=== PATIENT | male | born 1940 | race Caucasian/White ===

== ENCOUNTER → 2016-08-05 | Outpatient (CLI) | payer OTHER ==
[~2016-08-05] MED LIST: ASPCH81 PO; ASPI-461 PO; BND25X PO; CHOL400T PO; GLC500 PO; GLC850 PO; INSDGI SC; MCR5 PO; METO50TA16 PO; MULT-513 PO; NVLG SQ; OMEG10007 PO; SIMV80TA2 PO; SNQ/25 PO; TRAM-10 PO; VITA1CAP4 PO; VITACAP26 PO
[2016-08-05 13:17] LABS: HEMATOCRIT 43.4 % (42-52); MEAN CELL VOLUME 88.8 fL (80-100); MEAN CORPUSCULAR HEMOGLOBIN 30.5 pg (25-34); MEAN CORPUSCULAR HGB CONC 34.3 g/dl (32-36); PLATELET COUNT 241 K/uL (130-400); RED BLOOD COUNT 4.89 M/uL (4.7-6.1); WHITE BLOOD COUNT 13.33 K/uL (4.8-10.8)
[2016-08-05 13:22] LABS: URINE APPEARANCE CLEAR (CLEAR); URINE BILIRUBIN NEG (NEG); URINE COLOR YELLOW; URINE EPITHELIAL CELL AUTO 0-5 /lpf (0-5); URINE NITRITE NEG (NEG); URINE SPECIFIC GRAVITY 1.022 (1.000-1.030); UROBILINOGEN NEG (NEG)
[2016-08-05 13:34] LABS: URINE PROTIEN/CREAT RATIO 0.1 (0-0.2); URINE TOTAL PROTEIN 9.3 mg/dl (0-11.9)
[2016-08-05 13:39] LABS: BLOOD UREA NITROGEN 22 mg/dl (7-18); BUN/CREATININE RATIO 14.7 (10-20); CALCIUM 10.3 mg/dl (8.5-10.1); CARBON DIOXIDE 26 mmol/L (21-32); CHLORIDE 101 mmol/L (98-107); GLUCOSE 275 mg/dl (70-99); PHOSPHORUS 2.2 mg/dl (2.5-4.9); POTASSIUM 3.6 mmol/L (3.5-5.1); SODIUM 138 mmol/L (136-145)
[2016-08-05 13:40] LABS: MANUAL MICROSCOPIC REQUIRED? NO; REVIEW REQ? NO
== END | disposition home or self-care (01) ==
LOC: C.LABMFLN 08:33
PROVIDERS: ATTEND Internal Medicine Nephrology
DX: I12.9 Hypertensive chronic kidney disease with stage 1 through stage 4 chronic kidney disease, or unspecified chronic kidney disease (principal); E55.9 Vitamin D deficiency, unspecified; E83.52 Hypercalcemia; E21.3 Hyperparathyroidism, unspecified; R80.9 Proteinuria, unspecified; N18.3 Chronic kidney disease, stage 3 (moderate)

== ENCOUNTER → 2016-08-07 | Outpatient (CLI) | payer OTHER ==
[2016-08-08 05:45] LABS: ESTIMATED AVERAGE GLUCOSE 200 mg/dl; HA1C FLAG Normal (Normal)
== END | disposition home or self-care (01) ==
LOC: C.LAB1850 16:01
PROVIDERS: ATTEND Internal Medicine
DX: E11.65 Type 2 diabetes mellitus with hyperglycemia (principal)

== ENCOUNTER → 2016-12-03 | Outpatient (CLI) | payer OTHER ==
[2016-12-03 12:56] LABS: HEMATOCRIT 43.6 % (42-52); MEAN CELL VOLUME 88.3 fL (80-100); MEAN CORPUSCULAR HGB CONC 35.1 g/dl (32-36); MEAN PLATELET VOLUME 11.5 fL (7.4-10.4); PLATELET COUNT 207 K/uL (130-400); RED BLOOD COUNT 4.94 M/uL (4.7-6.1)
[2016-12-03 13:18] LABS: URINE APPEARANCE CLEAR (CLEAR); URINE BILIRUBIN NEG (NEG); URINE COLOR DK YELLOW; URINE NITRITE NEG (NEG); URINE SPECIFIC GRAVITY 1.022 (1.000-1.030); UROBILINOGEN NEG (NEG)
[2016-12-03 13:24] LABS: MANUAL MICROSCOPIC REQUIRED? NO; REVIEW REQ? NO
[2016-12-03 13:39] LABS: ESTIMATED AVERAGE GLUCOSE 189 mg/dl; HA1C FLAG Normal (Normal)
[2016-12-03 13:43] LABS: ALT/SGPT 21 U/L (12-78); AST/SGOT 18 U/L (15-37); BLOOD UREA NITROGEN 27 mg/dl (7-18); BUN/CREATININE RATIO 17.7 (10-20); CALCIUM 10.3 mg/dl (8.5-10.1); CARBON DIOXIDE 26 mmol/L (21-32); CHLORIDE 105 mmol/L (98-107); GLUCOSE 116 mg/dl (70-99); PHOSPHORUS 2.7 mg/dl (2.5-4.9); POTASSIUM 3.9 mmol/L (3.5-5.1); SODIUM 139 mmol/L (136-145)
[2016-12-03 13:49] LABS: URINE PROTIEN/CREAT RATIO 0.1 (0-0.2); URINE TOTAL PROTEIN 32.1 mg/dl (0-11.9)
== END | disposition home or self-care (01) ==
LOC: C.LABMFLN 08:31
PROVIDERS: ATTEND Internal Medicine Nephrology
DX: I12.9 Hypertensive chronic kidney disease with stage 1 through stage 4 chronic kidney disease, or unspecified chronic kidney disease (principal); E55.9 Vitamin D deficiency, unspecified; R80.9 Proteinuria, unspecified; N18.3 Chronic kidney disease, stage 3 (moderate); E11.65 Type 2 diabetes mellitus with hyperglycemia; E11.22 Type 2 diabetes mellitus with diabetic chronic kidney disease

== ENCOUNTER → 2016-12-31 | Outpatient (CLI) | payer OTHER ==
[2016-12-31 13:37] LABS: URINE APPEARANCE CLEAR (CLEAR); URINE BILIRUBIN NEG (NEG); URINE COLOR YELLOW; URINE NITRITE NEG (NEG); URINE SPECIFIC GRAVITY 1.019 (1.000-1.030); UROBILINOGEN NEG (NEG); ZZUR CULT IF INDIC CLEAN CATCH NO
[2016-12-31 13:40] LABS: MANUAL MICROSCOPIC REQUIRED? NO; REVIEW REQ? NO
[2016-12-31 14:43] LABS: BLOOD UREA NITROGEN 24 mg/dl (7-18); BUN/CREATININE RATIO 16.3 (10-20); CARBON DIOXIDE 27 mmol/L (21-32); CHLORIDE 105 mmol/L (98-107); GLUCOSE 153 mg/dl (70-99); SODIUM 138 mmol/L (136-145)
[2016-12-31 14:44] LABS: PHOSPHORUS 1.9 mg/dl (2.5-4.9)
== END | disposition home or self-care (01) ==
LOC: C.LABMFLN 08:48
PROVIDERS: ATTEND Internal Medicine Nephrology
DX: I10 Essential (primary) hypertension (principal); E55.9 Vitamin D deficiency, unspecified; R80.9 Proteinuria, unspecified; N18.3 Chronic kidney disease, stage 3 (moderate)

== ENCOUNTER → 2017-01-04 | Outpatient (CLI) | payer OTHER ==
--- NOTE | 2017-01-04 12:13 | DIAGNOSTIC IMAGING REPORT ---
RENAL ULTRASOUND CLINICAL HISTORY: Chronic kidney disease. Hypertension. COMPARISON STUDY: Renal ultrasound October 28, [address] of the abdomen and pelvis March 18, 2008. TECHNIQUE: Sonography of the kidneys and the urinary bladder was performed. FINDINGS: The right kidney measures 11.2 x 4.5 x 5.1 cm and the left measures 15.1 x 6.6 x 4.1 cm. A 5.9 cm anechoic lesion arising from the lower pole of the left kidney is consistent with a cyst. There is no hydronephrosis. No calculi or solid renal masses are identified by sonography. There is moderate right and mild left renal cortical thinning. The prostate is moderately enlarged and indents the base of the bladder. Both ureteral jets were identified. IMPRESSION: 1. No hydronephrosis. 2. Moderate right and mild left renal cortical thinning. 3. 5.9 cm left renal cyst. Electronically signed by: Qasim Cuevas M.D. 01/04/2017 12:12 PM Dictated Date/Time: 01/04/2017 12:10 PM
== END | disposition home or self-care (01) ==
LOC: C.ULTR 11:18
PROVIDERS: ATTEND Internal Medicine Nephrology
DX: E55.9 Vitamin D deficiency, unspecified (principal); I10 Essential (primary) hypertension; N18.3 Chronic kidney disease, stage 3 (moderate); R80.9 Proteinuria, unspecified

== ENCOUNTER 2017-02-15 11:03 | Emergency (ER) | payer OTHER ==
[~2017-02-15] VITALS: Ht 170.2 cm; Wt 78.0 kg
[~2017-02-15 11:03] MED LIST changes: -ASPI-461 PO; -CHOL400T PO; -GLC500 PO; -INSDGI SC; -NVLG SQ; -TRAM-10 PO; -VITA1CAP4 PO; -VITACAP26 PO
[2017-02-15 11:07] VITALS: TEMP 37; Ht 170.2 cm; Wt 78.0 kg
[2017-02-15] MEDS ORDERED: MCR5 PO (11:17)
[2017-02-15] MEDS ORDERED: CHOL400T PO (11:17)
[2017-02-15] MEDS ORDERED: ASPI-461 PO (11:17)
[2017-02-15] MEDS ORDERED: GLC500 PO (11:17)
[2017-02-15] MEDS ORDERED: VITA1CAP4 PO (11:17)
[2017-02-15] MEDS ORDERED: VITACAP26 PO (11:17)
[2017-02-15] MEDS ORDERED: INSDGI SC (11:28)
[2017-02-15] MEDS ORDERED: NVLG SQ (11:28)
--- NOTE | 2017-02-15 12:35 | DIAGNOSTIC IMAGING REPORT ---
RIGHT SHOULDER 3 VIEWS HISTORY: R shoulder/neck pain COMPARISON: None. FINDINGS: There is no fracture or dislocation. The right clavicle is intact. Poststernotomy changes. Mild AC joint arthrosis. Small focus of calcification within the distal supraspinatus tendon. Mild osteoarthritis at the glenohumeral joint. No radiopaque foreign bodies. IMPRESSION: 1. No fracture or dislocation within the right shoulder. 2. Supraspinatus calcific tendinitis. 3. Osteoarthritis within the right shoulder. Electronically signed by: Jose Daniel Wolf M.D. 02/15/2017 12:33 PM Dictated Date/Time: 02/15/2017 12:30 PM
--- NOTE | 2017-02-15 12:43 | DIAGNOSTIC IMAGING REPORT ---
CERVICAL SPINE 5 VIEWS HISTORY: R shoulder/neck pain COMPARISON: None. FINDINGS: The cervical spine is visualized from C1 through the superior endplate of T1. There is no fracture. No subluxation. Straightening of the cervical spine. Severe disc space narrowing at C4-C5 and C5-C6 with small endplate osteophytes. Moderate to space narrowing at C6-C7. Mild facet degenerative changes within the cervical spine. Mild right and moderate left neural foraminal narrowing seen at C4-C7. Prevertebral soft tissues and the atlantodens interval are intact. IMPRESSION: No fracture or subluxation within the cervical spine. Degenerative changes seen from C4 through C7 as described above. Electronically signed by: Jose Daniel Wolf M.D. 02/15/2017 12:42 PM Dictated Date/Time: 02/15/2017 12:36 PM
[2017-02-15] MEDS ORDERED: TRAM-10 PO (13:12)
--- NOTE | 2017-02-15 13:20 | EMERGENCY ROOM VISIT NOTE ---
ED Visit Note First contact with patient: 11:30 I did evaluate and examine this patient myself. I did guide management for the patient. I agree with the APC's assessment as discussed. Please see the APC's dictation for further details. I did independently review the x-rays. The patient has a known history of cervical disc disease. His symptoms seem consistent with cervical disc disease. He has no logic deficits and has good or strength and sensation throughout the right arm. He was advised follow with his doctor for further evaluation and likely referral to physical therapy.
[2017-02-15 13:33] VITALS: BP 129/77; PULSE 98; O2SAT 98
--- NOTE | 2017-02-15 14:19 | EMERGENCY ROOM VISIT NOTE ---
History First contact with patient: 11:30 Chief Complaint: NECK PAIN Stated Complaint: SEVERE PAIN IN NECK AND SHOULDER History of Present Illness The patient is a 76 year old male who presents to the Emergency Room with complaints of intermittent right sided neck and posterior shoulder pain. The patient reports that the pain has been ongoing over the past month. He denies any recent injuries to his neck or shoulder. He does report a history of multiple herniated discs in his neck. Report having a prior MRI of the neck, but does not recall when it was last performed. The patient denies any recent injuries to his shoulder or back. The pain does not radiate into his chest, and he denies any chest pain or shortness of breath. The patient reports that the pain can hit him at any time. His last acute exacerbation was while grocery shopping yesterday. When he went to reach up to a higher shelf, the pain hit him "like a lightening bolt". The patient currently reports that the pain is a 5 out of 10. He has not followed up with his family doctor regarding his current symptoms. Review of Systems 10 system review was performed and was negative except for pertinent positives and negatives as indicated in history of present illness Past Medical/Surgical History Medical Problems: (1) DM (diabetes mellitus) (2) Stroke Surgical Problems: (1) Hx of CABG Family History Unremarkable Social History Smoking Status: Never Smoker Marital Status: Housing Status: lives with family Current/Historical Medications Scheduled Aspirin (Aspirin), 81 MG PO DAILY Cholecalciferol (Vitamin D3), 400 UNITS PO DAILY Doxepin (Sinequan), 25 MG PO HS Fish Oil (Warren-3), 1 CAP PO BID Insulin Aspart (Novolog), SQ UD Insulin Glargine (Lantus), 60 UNITS SC AMPM Metoprolol Tartrate (Lopressor) (Lopressor), 50 MG PO DAILY Multivitamins/Minerals (Mvi With Minerals), 1 TAB PO DAILY Simvastatin (Zocor), 80 MG PO QPM Vitamin E (E 1000), 1,000 UNIT PO DAILY Vitamins C & E (Vitamin C), 1 CAP PO DAILY Scheduled PRN Tramadol (Ultram), 1 TAB PO Q4H PRN for Pain Physical Exam Vital Signs Date Time Temp Pulse Resp B/P (MAP) Pulse Ox O2 Delivery O2 Flow Rate FiO2 02/15/17 13:33 98 18 129/77 98 02/15/17 11:07 37.0 120 16 151/93 97 Room Air Physical Exam CONSTITUTIONAL: Healthy and well nourished. Alert and oriented X 3 with positive affect. The patient does not appear in any acute distress on exam. HEENT: Normocephalic, atraumatic. Pupils equal, round and reactive. NECK: Full active range of motion without discomfort. Negative lateral gaze test. No focal tenderness through the central cervical spine or cervical musculature. RESPIRATORY: Clear to auscultation bilaterally with no wheezing, crackles, rhonchi or stridor. Deep breathing does not worsen any discomfort. CARDIOVASCULAR: Regular rate and rhythm with no murmurs, rubs or gallops. GASTROINTESTINAL: Bowel sounds present in all quadrants. Soft and nontender to palpation. Negative Cueto sign. MUSCULOSKELETAL: Examination shows full range of motion of the right shoulder without significant discomfort. Has mild tenderness to palpation through the right trapezius and right interscapular region. 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 INTEGUMENTARY: No rash or other significant dermatologic conditions noted. NEUROLOGIC: No focal neurologic deficits noted. Right upper extremity median, radial and ulnar motor and sensory are intact. Medical Decision & Procedures ER Provider Diagnostic Interpretation: My interpretation of cervical spine x-ray shows notable lower cervical spine degenerative changes. No obvious fractures or subluxations. Radiologist report is as follows: CERVICAL SPINE 5 VIEWS HISTORY: R shoulder/neck pain COMPARISON: None. FINDINGS: The cervical spine is visualized from C1 through the superior endplate of T1. There is no fracture. No subluxation. Straightening of the cervical spine. Severe disc space narrowing at C4-C5 and C5-C6 with small endplate osteophytes. Moderate to space narrowing at C6-C7. Mild facet degenerative changes within the cervical spine. Mild right and moderate left neural foraminal narrowing seen at C4-C7. Prevertebral soft tissues and the atlantodens interval are intact. IMPRESSION: No fracture or subluxation within the cervical spine. Degenerative changes seen from C4 through C7 as described above. My interpretation of right shoulder x-ray shows a mild supraspinous calcific tendinitis without evidence for other fractures, dislocation or superior migration of the humeral head. Radiologist report is as follows: RIGHT SHOULDER 3 VIEWS HISTORY: R shoulder/neck pain COMPARISON: None. FINDINGS: There is no fracture or dislocation. The right clavicle is intact. Poststernotomy changes. Mild AC joint arthrosis. Small focus of calcification within the distal supraspinatus tendon. Mild osteoarthritis at the glenohumeral joint. No radiopaque foreign bodies. IMPRESSION: 1. No fracture or dislocation within the right shoulder. 2. Supraspinatus calcific tendinitis. 3. Osteoarthritis within the right shoulder. ED Course Patient history and physical exam were performed. Nurse's notes were reviewed. Vital signs were reviewed, showing an elevated blood pressure 151/93. The patient does not appear in any acute distress. X-rays of the cervical spine and right shoulder shows degenerative changes in the neck, and a mild supraspinatus calcific tendinitis. The patient was advised that his symptoms are most consistent with acute cervical radiculitis. He was encouraged to intermittently apply ice to the neck. He may alternate ibuprofen and Tylenol for baseline pain relief. The patient was provided a prescription for tramadol as needed for worse pain. The son reports that the patient has had tramadol before in the past. The patient was instructed to follow-up with his PCP for further reevaluation and management. He was instructed to return to the emergency department for any developing chest pain, shortness of breath or fever. The patient was happy with plan of care, voiced understanding of all discharge instructions, refused any analgesics while in the emergency department , and rated his pain a 3 out of 10 at the conclusion of my exam. The patient was also seen and examined by Dr. Reed, ED attending physician, who agrees with workup and plan of care. The patient was advised of his elevated blood pressure while in the emergency department, and was encouraged to follow-up with his PCP to discuss his elevated blood pressure as well. Medical Decision [place] Drug Monitoring Program Search Results: patient reviewed within database, no issues identified Medication Reconcilliation Current Medication List: was personally reviewed by me Blood Pressure Screening Patient's blood pressure: Elevated blood pressure Blood pressure disposition: Referred to PCP Impression Primary Impression: Radiculitis of right cervical region Additional Impression: Elevated blood pressure reading Departure Information Prescriptions Tramadol (Ultram) 50 Mg Tab 1 TAB PO Q4H Y for Pain, #30 TAB For Initial Treatment Prov: Allan Tristan PA 02/15/17 Referrals Pro,Adonay Harding M.D. (PCP) Patient Instructions My [facility] Problem Qualifiers
== END 2017-02-15 13:36 | disposition home or self-care (01) ==
LOC: C.EDB 11:04 → C.EDD 13:36
DX: M54.12 Radiculopathy, cervical region (principal); R03.0 Elevated blood-pressure reading, without diagnosis of hypertension; E11.9 Type 2 diabetes mellitus without complications; Z86.73 Personal history of transient ischemic attack (TIA), and cerebral infarction without residual deficits; Z95.1 Presence of aortocoronary bypass graft; Z79.82 Long term (current) use of aspirin; Z79.4 Long term (current) use of insulin; Z79.899 Other long term (current) drug therapy

== ENCOUNTER → 2017-07-14 | Outpatient (CLI) | payer OTHER ==
[~2017-07-14] MED LIST changes: -ASPCH81 PO; +ASPI-461 PO; -BND25X PO; +CHOL400T PO; -GLC850 PO; +INSDGI SC; -MCR5 PO; +NVLG SQ; +TRAM-10 PO; +VITA1CAP4 PO; +VITACAP26 PO
[2017-07-14 17:54] LABS: HEMATOCRIT 46.4 % (42-52); HEMOGLOBIN 16.1 g/dL (14.0-18.0); MEAN CELL VOLUME 89.9 fL (80-100); MEAN CORPUSCULAR HEMOGLOBIN 31.2 pg (25-34); MEAN CORPUSCULAR HGB CONC 34.7 g/dl (32-36); MEAN PLATELET VOLUME 12.1 fL (7.4-10.4); PLATELET COUNT 219 K/uL (130-400); RED CELL DISTRIBUTION WIDTH CV 12.9 % (11.5-14.5); RED CELL DISTRIBUTION WIDTH SD 42.3 fL (36.4-46.3); WHITE BLOOD COUNT 10.99 K/uL (4.8-10.8)
[2017-07-14 19:00] LABS: ALBUMIN 4.1 gm/dl (3.4-5.0); ALT/SGPT 23 U/L (12-78); AST/SGOT 13 U/L (15-37); BLOOD UREA NITROGEN 20 mg/dl (7-18); CALCIUM 10.2 mg/dl (8.5-10.1); CARBON DIOXIDE 26 mmol/L (21-32); CREATININE 1.52 mg/dl (0.60-1.40); GLUCOSE 183 mg/dl (70-99); POTASSIUM 3.5 mmol/L (3.5-5.1); SODIUM 136 mmol/L (136-145)
[2017-07-14 19:07] LABS: ALKALINE PHOSPHATASE 82 U/L (45-117); CHOLESTEROL 161 mg/dl (0-200); TOTAL PROTEIN 8.1 gm/dl (6.4-8.2)
== END | disposition home or self-care (01) ==
LOC: C.LABMFLN 13:44
PROVIDERS: ATTEND Internal Medicine Nephrology
DX: E78.5 Hyperlipidemia, unspecified (principal); E11.65 Type 2 diabetes mellitus with hyperglycemia; I12.9 Hypertensive chronic kidney disease with stage 1 through stage 4 chronic kidney disease, or unspecified chronic kidney disease; E55.9 Vitamin D deficiency, unspecified; E11.22 Type 2 diabetes mellitus with diabetic chronic kidney disease; N18.3 Chronic kidney disease, stage 3 (moderate); E21.3 Hyperparathyroidism, unspecified; R80.9 Proteinuria, unspecified

== ENCOUNTER 2017-08-30 16:31 | Inpatient (IN) | payer OTHER ==
[~2017-08-30] VITALS: Ht 172.7 cm; Wt 82.3 kg
[~2017-08-30 16:31] MED LIST changes: -INSDGI SC; +INSDGI SQ; -TRAM-10 PO
[2017-08-30] MEDS ORDERED: SODIUM CHLORIDE 0.9% 1000ML 1,000 ML IV STA (16:48)
[2017-08-30] MEDS ORDERED: IBUPROFEN 600 MG TAB PO STA (16:48)
[2017-08-30] MEDS ORDERED: TPRSR/50 PO (17:23)
[2017-08-30] MEDS ORDERED: ONDANSETRON INJ 2 MG/ML 2 ML VIAL IV STA (17:25)
[2017-08-30] MEDS ORDERED: LOSA1TAB38 PO (17:25)
[2017-08-30] MEDS ORDERED: ATOR-24 PO (17:26)
[2017-08-30] MEDS ORDERED: ONDANSETRON INJ 2 MG/ML 2 ML VIAL ONE (17:26)
[2017-08-30] MEDS ORDERED: ALLO100T PO (17:27)
[2017-08-30] MEDS ORDERED: CLOP1TAB54 PO (17:30)
[2017-08-30 17:42] LABS: BASO % 0.1 %; BASO ABS # 0.03 K/uL (0-0.2); EOS ABS # 0.01 K/uL (0-0.5); HEMATOCRIT 45.2 % (42-52); HEMOGLOBIN 15.9 g/dL (14.0-18.0); IG# 0.11 K/uL (0.00-0.02); LYMPH ABS # 1.22 K/uL (1.2-3.4); MEAN CELL VOLUME 85.9 fL (80-100); MEAN CORPUSCULAR HEMOGLOBIN 30.2 pg (25-34); MEAN CORPUSCULAR HGB CONC 35.2 g/dl (32-36); MEAN PLATELET VOLUME 11.7 fL (7.4-10.4); MONO % 5.8 %; MONO ABS # 1.17 K/uL (0.11-0.59); NEUT % 87.6 %; NEUT ABS # 17.68 K/uL (1.4-6.5); PLATELET COUNT 171 K/uL (130-400); RED CELL DISTRIBUTION WIDTH CV 12.9 % (11.5-14.5); RED CELL DISTRIBUTION WIDTH SD 40.5 fL (36.4-46.3); WHITE BLOOD COUNT 20.22 K/uL (4.8-10.8)
--- NOTE | 2017-08-30 17:51 | DIAGNOSTIC IMAGING REPORT ---
CHEST ONE VIEW PORTABLE CLINICAL HISTORY: 77 years-old Male presenting with EVALUATE ALTERED MENTAL STATUS/WEAKNESS. TECHNIQUE: Portable upright AP view of the chest was obtained. COMPARISON: 09/09/2013. FINDINGS: Median sternotomy wires and mediastinal surgical clips unchanged. Breakage of the superiormost wire unchanged. Atherosclerosis of the aortic arch. Cardiac silhouette top normal in size. Mildly low lung volumes with hypoventilatory changes. Bandlike opacity at the right lung base. No large effusion or pneumothorax. Mild prominence of pulmonary vasculature. Degenerative changes of the thoracic spine. Upper abdomen normal. IMPRESSION: 1. Low lung volumes with hypoventilatory changes including right basilar atelectasis. No convincing evidence of acute cardiopulmonary disease. Electronically signed by: Jossue Damon M.D. 08/30/2017 5:50 PM Dictated Date/Time: 08/30/2017 5:49 PM
[2017-08-30 18:06] LABS: CALCIUM 10.6 mg/dl (8.5-10.1); CREATININE 1.54 mg/dl (0.60-1.40); POTASSIUM 4.5 mmol/L (3.5-5.1)
[2017-08-30 18:15] LABS: CKMB 1.9 ng/ml (0.5-3.6)
--- NOTE | 2017-08-30 18:21 | DIAGNOSTIC IMAGING REPORT ---
LUMBAR SPINE WITHOUT, THORACIC SPINE WITHOUT HISTORY: 77 years-old Male fsall acute back pain status post fall COMPARISON: CT 03/18/2008, CTA of the chest 10/24/2008. TECHNIQUE: Multiple axial CT images of the thoracic and lumbar spine were obtained without IV contrast. Images were reviewed in the coronal and sagittal planes. A dose lowering technique was used consistent with the principals of NIKKY. FINDINGS: THORACIC: There is an acute burst fracture involving the T12 vertebral body with 30% anterior endplate vertebral body height loss. Fracture of the posterior cortex is also noted with 5 mm retropulsion. Bones are mildly demineralized. Findings cause mild central canal narrowing posterior to T12 vertebral body. Neuroforamen at T11-T12 and T12-L1 appear patent. No large epidural or paraspinal hematoma identified. The remaining vertebral bodies are well-maintained without additional acute fracture or subluxation. Multilevel bridging osteophytosis with mild multilevel intervertebral disc space narrowing. Mostly moderate multilevel facet arthrosis. The imaged posterior elements appear intact. No high-grade central canal or foraminal narrowing identified within the thoracic spine. The imaged ribs appear intact. Extensive calcification of the thoracic aorta. Coronary arterial disease with cardiomegaly. Subsegmental bibasilar atelectasis. 6 mm nodule of the right upper lobe, image 107 series 3 is unchanged from comparison study compatible with benign etiology. LUMBAR: No acute fracture or subluxation identified. Moderate facet arthrosis of the mid and lower lumbar spine with mild multilevel endplate spurring. Posterior elements appear intact. Transverse processes appear intact. No evidence of sacral or iliac fracture. Moderate degenerative changes about the bilateral SI joints. Posterior disc bulge at L3-L4 causes mild central canal and mild bilateral foraminal narrowing. Circumferential annular disc bulging seen most prominently at L4-L5 resulting in moderate central canal and mild bilateral foraminal narrowing. Moderate posterior disc bulge at L5-S1 flattens the ventral thecal sac without significant central canal or foraminal narrowing identified. Extensive calcification of the aorta and branch vessels without aneurysm identified. No bulky adenopathy or acute intra-abdominal abnormality identified. Mild nonspecific perinephric stranding. IMPRESSION: 1. Acute burst fracture involves the T12 vertebral body with 30% anterior endplate vertebral body height loss. 5 mm retropulsion causes mild central canal narrowing at this level. No high-grade central canal or foraminal narrowing. 2. No acute fracture or subluxation of the lumbar spine. 3. Multilevel endplate spurring and facet arthrosis as above. The above report was generated using voice recognition software. It may contain grammatical, syntax or spelling errors. Electronically signed by: Seng Royal M.D. 08/30/2017 6:20 PM Dictated Date/Time: 08/30/2017 6:05 PM
--- NOTE | 2017-08-30 18:57 | EMERGENCY ROOM VISIT NOTE ---
History Report prepared by Jeffersonibjahaira: Cristiana Martinez Under the Supervision of: Dr. Dudley Kern D.O. First contact with patient: 16:40 Stated Complaint: FALL, BACK & TAILBONE PAIN History of Present Illness The patient is a 77 year old male who presents to the Emergency Room with complaints of a fall that occurred prior to arrival. He states he woke up feeling unwell this morning, so he laid back down. When he got up a little while later, he lost his balance and fell onto his buttocks and tailbone around approximately 0900 this morning. He complains of low back and tailbone pain currently, rating his pain as a 10/10 in severity. He did not lose consciousness during the fall. He states his son found him on the ground around 1500, so he was laying on the ground alone for several hours. He notes he normally ambulates with the assistance of a walker. The patient denies any abdominal pain. Source of History: patient Onset: earlier today Position: other (global) Quality: other (fall) Timing: resolved Associated Symptoms: + back pain, No LOC Review of Systems See HPI for pertinent positives & negatives. A total of 10 systems reviewed and were otherwise negative. Past Medical & Surgical Medical Problems: (1) DM (diabetes mellitus) (2) Stroke Surgical Problems: (1) Hx of CABG Social History Smoking Status: Never Smoker Alcohol Use: none Drug Use: none Marital Status: Housing Status: lives with family Occupation Status: retired Current/Historical Medications Scheduled Allopurinol (Zyloprim), 100 MG PO DAILY Aspirin (Aspirin), 81 MG PO DAILY Atorvastatin (Lipitor), 40 MG PO DAILY Clopidogrel Bisulfate (Plavix), 75 MG PO DAILY Fish Oil ([place]-3), 2 CAP PO DAILY Insulin Aspart (Novolog), 20 UNITS SQ UD Insulin Glargine (Lantus), 55 UNITS SQ AMPM Losartan Potassium (Cozaar), 100 MG PO DAILY Metoprolol Succinate (Metoprolol Succinate ER), 50 MG PO DAILY Multivitamins/Minerals (Mvi With Minerals), 1 TAB PO DAILY Vitamins C & E (Vitamin C), 1 CAP PO BID Allergies Coded Allergies: No Known Allergies (Unverified , 02/15/17) Physical Exam Vital Signs Date Time Temp Pulse Resp B/P (MAP) Pulse Ox O2 Delivery O2 Flow Rate FiO2 08/30/17 16:54 95 08/30/17 16:47 36.3 97 19 185/105 92 Room Air Physical Exam CONSTITUTIONAL/VITAL SIGNS: Reviewed / noted above. GENERAL: Non-toxic in appearance. Difficulty moving related to weakness and pain. INTEGUMENTARY: Warm, dry, and [place]. HEAD: Normocephalic. EYES: without scleral icterus or trauma. ENT/OROPHARYNX: clear and moist. LYMPHADENOPATHY/NECK: Is supple without lymphadenopathy or meningismus. RESPIRATORY: Lungs clear and equal. CARDIOVASCULAR: Regular rate and rhythm. GI/ABDOMEN: Soft and nontender. No organomegaly or pulsatile mass. No rebound or guarding. Normal bowel sounds. EXTREMITIES: Warm and well perfused. BACK: Mild tenderness to palpation to lower thoracic region, no obvious visible trauma. NEUROLOGICAL: Intact without focal deficits. PSYCHIATRIC: normal affect. MUSCULOSKELETAL: Normally developed with good muscle tone. Medical Decision & Procedures ER Provider Diagnostic Interpretation: Radiology results as stated below per my review and radiologist interpretation: CHEST ONE VIEW PORTABLE CLINICAL HISTORY: 77 years-old Male presenting with EVALUATE ALTERED MENTAL STATUS/WEAKNESS. TECHNIQUE: Portable upright AP view of the chest was obtained. COMPARISON: 09/09/2013. FINDINGS: Median sternotomy wires and mediastinal surgical clips unchanged. Breakage of the superiormost wire unchanged. Atherosclerosis of the aortic arch. Cardiac silhouette top normal in size. Mildly low lung volumes with hypoventilatory changes. Bandlike opacity at the right lung base. No large effusion or pneumothorax. Mild prominence of pulmonary vasculature. Degenerative changes of the thoracic spine. Upper abdomen normal. IMPRESSION: 1. Low lung volumes with hypoventilatory changes including right basilar atelectasis. No convincing evidence of acute cardiopulmonary disease. Electronically signed by: Jossue Damon M.D. 08/30/2017 5:50 PM LUMBAR SPINE WITHOUT, THORACIC SPINE WITHOUT HISTORY: 77 years-old Male fsall acute back pain status post fall COMPARISON: CT 03/18/2008, CTA of the chest 10/24/2008. TECHNIQUE: Multiple axial CT images of the thoracic and lumbar spine were obtained without IV contrast. Images were reviewed in the coronal and sagittal planes. A dose lowering technique was used consistent with the principals of NIKKY. FINDINGS: THORACIC: There is an acute burst fracture involving the T12 vertebral body with 30% anterior endplate vertebral body height loss. Fracture of the posterior cortex is also noted with 5 mm retropulsion. Bones are mildly demineralized. Findings cause mild central canal narrowing posterior to T12 vertebral body. Neuroforamen at T11-T12 and T12-L1 appear patent. No large epidural or paraspinal hematoma identified. The remaining vertebral bodies are well-maintained without additional acute fracture or subluxation. Multilevel bridging osteophytosis with mild multilevel intervertebral disc space narrowing. Mostly moderate multilevel facet arthrosis. The imaged posterior elements appear intact. No high-grade central canal or foraminal narrowing identified within the thoracic spine. The imaged ribs appear intact. Extensive calcification of the thoracic aorta. Coronary arterial disease with cardiomegaly. Subsegmental bibasilar atelectasis. 6 mm nodule of the right upper lobe, image 107 series 3 is unchanged from comparison study compatible with benign etiology. LUMBAR: No acute fracture or subluxation identified. Moderate facet arthrosis of the mid and lower lumbar spine with mild multilevel endplate spurring. Posterior elements appear intact. Transverse processes appear intact. No evidence of sacral or iliac fracture. Moderate degenerative changes about the bilateral SI joints. Posterior disc bulge at L3-L4 causes mild central canal and mild bilateral foraminal narrowing. Circumferential annular disc bulging seen most prominently at L4-L5 resulting in moderate central canal and mild bilateral foraminal narrowing. Moderate posterior disc bulge at L5-S1 flattens the ventral thecal sac without significant central canal or foraminal narrowing identified. Extensive calcification of the aorta and branch vessels without aneurysm identified. No bulky adenopathy or acute intra-abdominal abnormality identified. Mild nonspecific perinephric stranding. IMPRESSION: 1. Acute burst fracture involves the T12 vertebral body with 30% anterior endplate vertebral body height loss. 5 mm retropulsion causes mild central canal narrowing at this level. No high-grade central canal or foraminal narrowing. 2. No acute fracture or subluxation of the lumbar spine. 3. Multilevel endplate spurring and facet arthrosis as above. The above report was generated using voice recognition software. It may contain grammatical, syntax or spelling errors. Electronically signed by: Seng Royal M.D. 08/30/2017 6:20 PM Laboratory Results 08/30/17 17:18 Red Blood Count 5.26, Mean Corpuscular Volume 85.9, Mean Corpuscular Hemoglobin 30.2, Mean Corpuscular Hemoglobin Concent 35.2, Mean Platelet Volume 11.7, Neutrophils (%) (Auto) 87.6, Lymphocytes (%) (Auto) 6.0, Monocytes (%) (Auto) 5.8, Eosinophils (%) (Auto) 0.0, Basophils (%) (Auto) 0.1, Neutrophils # (Auto) 17.68, Lymphocytes # (Auto) 1.22, Monocytes # (Auto) 1.17, Eosinophils # (Auto) 0.01, Basophils # (Auto) 0.03 08/30/17 17:18 Test 08/30/17 17:18 White Blood Count 20.22 K/uL (4.8-10.8) Red Blood Count 5.26 M/uL (4.7-6.1) Hemoglobin 15.9 g/dL (14.0-18.0) Hematocrit 45.2 % (42-52) Mean Corpuscular Volume 85.9 fL (80-100) Mean Corpuscular Hemoglobin 30.2 pg (25-34) Mean Corpuscular Hemoglobin Concent 35.2 g/dl (32-36) Platelet Count 171 K/uL (130-400) Mean Platelet Volume 11.7 fL (7.4-10.4) Neutrophils (%) (Auto) 87.6 % Lymphocytes (%) (Auto) 6.0 % Monocytes (%) (Auto) 5.8 % Eosinophils (%) (Auto) 0.0 % Basophils (%) (Auto) 0.1 % Neutrophils # (Auto) 17.68 K/uL (1.4-6.5) Lymphocytes # (Auto) 1.22 K/uL (1.2-3.4) Monocytes # (Auto) 1.17 K/uL (0.11-0.59) Eosinophils # (Auto) 0.01 K/uL (0-0.5) Basophils # (Auto) 0.03 K/uL (0-0.2) RDW Standard Deviation 40.5 fL (36.4-46.3) RDW Coefficient of Variation 12.9 % (11.5-14.5) Immature Granulocyte % (Auto) 0.5 % Immature Granulocyte # (Auto) 0.11 K/uL (0.00-0.02) Anion Gap 11.0 mmol/L (3-11) Est Creatinine Clear Calc Drug Dose 41.3 ml/min Estimated GFR () 49.4 Estimated GFR (Non- 42.6 BUN/Creatinine Ratio 12.9 (10-20) Calcium Level 10.6 mg/dl (8.5-10.1) Total Creatine Kinase 100 U/L (39-308) Creatine Kinase MB 1.9 ng/ml (0.5-3.6) Creatine Kinase MB Ratio 1.9 (0-3.0) Beta-Hydroxybutyric Acid 3.59 mg/dL (0.2-2.81) Laboratory results as stated above per my review. Medications Administered Medications (Trade) Dose Ordered Sig/Jeannette Route Start Time Stop Time Status Last Admin Dose Admin Sodium Chloride 1,000 ml @ 999 mls/hr Q1H1M STAT IV 08/30/17 16:48 08/30/17 17:48 DC 08/30/17 16:48 999 MLS/HR Ibuprofen (Motrin Tab) 600 mg NOW STAT PO 08/30/17 16:48 08/30/17 16:50 DC 08/30/17 17:28 600 MG Ondansetron HCl (Zofran Inj) 4 mg NOW STAT IV 08/30/17 17:25 08/30/17 17:26 DC 08/30/17 17:28 4 MG ECG Per My Interpretation Indication: weakness Rate (beats per minute): 92 Rhythm: sinus rhythm Findings: PVC, other (No ST elevation) ED Course 1645: Previous medical records were reviewed. The patient was evaluated in room B7. A complete history and physical examination was performed. 1648: Ibuprofen 600 mg PO, NSS 1000 ml @ 999 mls/hr IV. 1725: Zofran 4 mg IV. 1828: I discussed the patients case with Dr. Brice, [facility]. He recommends the patient be evaluated by the hospital medicine team and he will consult on the case. 183: I discussed the patients case with Dr. Kiser, [facility] Hospitalist. The patient will be further evaluated. Medical Decision Differentials include: Close head injury, intracranial bleed, facial trauma, cervical spine trauma, chest and thoracic trauma, abdominal and intra-abdominal trauma, spine neurologic trauma, and extremity trauma. The patient is a 77-year-old male who presents to the ED with a chief complaint of a fall. It was a ground-level fall. He denies loss of consciousness or striking his head. The patient presents complaining of some mid thoracic and low back pain. He reported falling on his buttock. The patient states he was lying on the ground since 9 AM until about 4 PM. He could not get up he was too weak. His physical exam reveals generalized weakness and discomfort with movement. There is some tenderness to palpation of the lower thoracic and upper lumbar region. Flank physical exam was otherwise unremarkable. EKG shows a sinus rhythm at a rate of 92 and a chest x-ray did not show acute process. White blood cell count was 20,000 and glucose is 305. Chemistry panel was otherwise unremarkable. CT scan of the thoracic and lumbar spine reveals a burst fracture of the T12 vertebrae with 30% anterior endplate vertebral body height loss and 5 mm of retropulsion causing mild central canal narrowing. The patient was told the results. I spoke with Dr. Brice from orthopedics about the patient. He thinks the patient will be set up for a TLSO brace. The patient will require admission for pain management and further evaluation. His white blood cell count could be related to pain although urinalysis is pending. I spoke with the hospitalist who will see the patient for further inpatient evaluation and care. Medication Reconcilliation Current Medication List: was personally reviewed by me Blood Pressure Screening Patient's blood pressure: Elevated blood pressure Blood pressure disposition: Referred to PCP (The patients elevated blood pressure will be further managed by the inpatient hospital medicine team) Consults Time Called: 1826 Consulting Physician: Dr. Brice [facility] Returned Call: 1827 I discussed the patients case with Dr. Brice, [facility]. He recommends the patient be evaluated by the hospital medicine team and he will consult on the case. Additional Consults: Time Called: 1829 Consulted Physician: Dr. Kiser, [facility] Hospitalist Returned Call: 1831 Additional Comments: I discussed the patients case with Dr. Kiser, [facility] Hospitalist. The patient will be further evaluated. Impression Primary Impression: Fall Additional Impression: Burst fracture of T12 vertebra Scribe Attestation The scribe's documentation has been prepared under my direction and personally reviewed by me in its entirety. I confirm that the note above accurately reflects all work, treatment, procedures, and medical decision making performed by me. Departure Information Dispostion Being Evaluated By Hospitalist Referrals Pro,Adonay Harding M.D. (PCP) Problem Qualifiers
[2017-08-30] MEDS ORDERED: DEXTROSE 50% 50 ML SYR IV PRN (19:15)
[2017-08-30] MEDS ORDERED: GLUCOSE 10 TABS/TUBE PO PRN (19:15)
[2017-08-30] MEDS ORDERED: INSULIN ASPART 100 UNITS/ML 3 ML PEN SQ SCH (19:15)
[2017-08-30] MEDS ORDERED: OXYCODONE/ACETAMINOPHEN 5-325 TAB PO ONE (19:15)
[2017-08-30] MEDS ORDERED: ONDANSETRON INJ 2 MG/ML 2 ML VIAL IV PRN (19:15)
[2017-08-30] MEDS ORDERED: GLUCOSE 40% GEL 15 GM TUBE PO PRN (19:15)
[2017-08-30] MEDS ORDERED: ACETAMINOPHEN 325 MG TAB PO PRN (19:15)
[2017-08-30] MEDS ORDERED: GLUCAGON FOR INJ 1 MG VIAL SQ PRN (19:15)
--- NOTE | 2017-08-30 19:28 | History and Physical ---
History & Physical Date & Time of Service: Aug 30, 2017 at 19:18 Chief Complaint: Fall, Back & Tailbone Pain Primary Care Physician: Adonay Patel M.D. History of Present Illness Source: patient 77 y/o M c/o fall earlier today. Pt states he had felt tired all day today. He laid down for nap. About an hour later he got up and fell to the floor. He was not dizzy or lightheaded. He states he just lost his balance. He fell about 3 months ago at a restaurant but was fine at that point. He does frequently fall back into his recliner when he initially tries to stand. Not daily, but more often lately. "I have a hard time getting going sometimes." Pt 's only concern at this time is his back pain with even small movements. Pt denies fever, SOB, chest pain, abd pain, n/v/c/d, LE pain or swelling. He has never had pain like this before. It is slightly better than when he arrived but not much. He has a low appetite at baseline but tolerates what he eats. He was at his usual level of health today before his fall other than being a bit more tired than usual. Pt states he did take his lantus this AM, but there wasn't enough in his pen to cover his usual dose and he did not feel like getting a new pen at that time. He did not take any of his short acting insulin. He checks his BS maybe 1x week , usually after he has eaten. BS generally around 130-140. Past Medical/Surgical History Medical Problems: (1) Abdominal pain (2) Abdominal pain (3) Compression fracture (4) Constipation (5) Constipation (6) DM (diabetes mellitus) (7) Elevated blood pressure reading (8) Radiculitis of right cervical region (9) Radiculitis of right cervical region (10) Stroke Surgical Problems: (1) H/O colectomy (2) Hx of CABG Hx of CVA in 2015 and 2007 Hx of CABG in 2007 CKD with baseline cr 1.5 Family History Father with hx of possible CVA Social History Smoking Status: Never Smoker Alcohol Use: none Drug Use: none Marital Status: Housing status: lives with family Occupational Status: retired Immunizations History of Influenza Vaccine: No History of Tetanus Vaccine?: No History of Pneumococcal: No History of Hepatitis B Vaccine: No Allergies Coded Allergies: No Known Allergies (Unverified , 02/15/17) Home Medications Scheduled Allopurinol (Zyloprim), 100 MG PO DAILY Aspirin (Aspirin), 81 MG PO DAILY Atorvastatin (Lipitor), 40 MG PO DAILY Clopidogrel Bisulfate (Plavix), 75 MG PO DAILY Fish Oil ([place]-3), 2 CAP PO DAILY Insulin Aspart (Novolog), 20 UNITS SQ UD Insulin Glargine (Lantus), 55 UNITS SQ AMPM Losartan Potassium (Cozaar), 100 MG PO DAILY Metoprolol Succinate (Metoprolol Succinate ER), 50 MG PO DAILY Multivitamins/Minerals (Mvi With Minerals), 1 TAB PO DAILY Vitamins C & E (Vitamin C), 1 CAP PO BID Review of Systems Pertinent positives and negatives reviewed in HPI--all others negative Physical Exam Vital Signs Date Time Temp Pulse Resp B/P (MAP) Pulse Ox O2 Delivery O2 Flow Rate FiO2 08/30/17 16:54 95 08/30/17 16:47 36.3 97 19 185/105 92 Room Air General Appearance: WD/WN, no apparent distress Head: normocephalic, atraumatic Eyes: normal inspection, sclerae normal Respiratory/Chest: normal breath sounds, no respiratory distress Cardiovascular: regular rate, rhythm, no edema Abdomen/GI: non tender, soft Extremities/Musculoskelatal: no calf tenderness, no pedal edema Neurologic/Psych: alert, normal mood/affect, oriented x 3 Skin: normal color, warm/dry Diagnostics Laboratory Results Results Past 24 Hours Test 08/30/17 17:18 Range/Units White Blood Count 20.22 4.8-10.8 K/uL Red Blood Count 5.26 4.7-6.1 M/uL Hemoglobin 15.9 14.0-18.0 g/dL Hematocrit 45.2 42-52 % Mean Corpuscular Volume 85.9 80-100 fL Mean Corpuscular Hemoglobin 30.2 25-34 pg Mean Corpuscular Hemoglobin Concent 35.2 32-36 g/dl Platelet Count 171 130-400 K/uL Mean Platelet Volume 11.7 7.4-10.4 fL Neutrophils (%) (Auto) 87.6 % Lymphocytes (%) (Auto) 6.0 % Monocytes (%) (Auto) 5.8 % Eosinophils (%) (Auto) 0.0 % Basophils (%) (Auto) 0.1 % Neutrophils # (Auto) 17.68 1.4-6.5 K/uL Lymphocytes # (Auto) 1.22 1.2-3.4 K/uL Monocytes # (Auto) 1.17 0.11-0.59 K/uL Eosinophils # (Auto) 0.01 0-0.5 K/uL Basophils # (Auto) 0.03 0-0.2 K/uL RDW Standard Deviation 40.5 36.4-46.3 fL RDW Coefficient of Variation 12.9 11.5-14.5 % Immature Granulocyte % (Auto) 0.5 % Immature Granulocyte # (Auto) 0.11 0.00-0.02 K/uL Sodium Level 133 136-145 mmol/L Potassium Level 4.5 3.5-5.1 mmol/L Chloride Level 100 98-107 mmol/L Carbon Dioxide Level 22 21-32 mmol/L Anion Gap 11.0 3-11 mmol/L Blood Urea Nitrogen 20 7-18 mg/dl Creatinine 1.54 0.60-1.40 mg/dl Est Creatinine Clear Calc Drug Dose 41.3 ml/min Estimated GFR () 49.4 Estimated GFR (Non- 42.6 BUN/Creatinine Ratio 12.9 10-20 Random Glucose 305 70-99 mg/dl Calcium Level 10.6 8.5-10.1 mg/dl Total Creatine Kinase 100 39-308 U/L Creatine Kinase MB 1.9 0.5-3.6 ng/ml Creatine Kinase MB Ratio 1.9 0-3.0 Beta-Hydroxybutyric Acid 3.59 0.2-2.81 mg/dL Diagnostic Radiology CXR: neg for acute CT L/T spine: 1. Acute burst fracture involves the T12 vertebral body with 30% anterior endplate vertebral body height loss. 5 mm retropulsion causes mild central canal narrowing at this level. No high-grade central canal or foraminal narrowing. 2. No acute fracture or subluxation of the lumbar spine. 3. Multilevel endplate spurring and facet arthrosis as above. Impression Assessment and Plan 77 y/o M who was admitted on 08/30 for T12 burst compression fx 12 burst compression fx: as noted on CT s/p mechanical fall Ortho and orthotics c/s pending Calcitonin spray Percocet PRN, would use sparingly in this age group DM: BS elevated in the setting of missed insulin A1c pending Home dosing + SSI PRN Leukocytosis: UA pending Possibly a stress reaction, monitor Afebrile HTN: labile in the setting of pain, continue home meds TIA/CVA/CAD s/p CABG: continue home meds Continue asp/plavix CKD: baseline cr is 1.5 Other: For cardiac resuscitation with DNI, daughter present and agrees DM diet Asp/plavix at baseline, SCDs for other DVT proph to avoid GIB in this age group with rx proph CM c/s, PT/OT pending Resuscitation Status VTE Prophylaxis Will order VTE Prophylaxis: Yes
[2017-08-30 19:32] VITALS: BMI 27.6
[2017-08-30 19:45] VITALS: BP 161/95; PULSE 90; TEMP 37.1; O2SAT 92
[2017-08-30] MEDS: INSULIN ASPART 100 UNITS/ML 3 ML PEN SC SCH (20:53)
[2017-08-30] MEDS: INSULIN GLARGINE SQ SCH (20:54)
[2017-08-30 22:59] VITALS: BP 137/73; PULSE 87; TEMP 37.6; O2SAT 92
[2017-08-31 04:57] LABS: HEMATOCRIT 39.8 % (42-52); HEMOGLOBIN 13.8 g/dL (14.0-18.0); MEAN CELL VOLUME 86.9 fL (80-100); MEAN CORPUSCULAR HEMOGLOBIN 30.1 pg (25-34); MEAN CORPUSCULAR HGB CONC 34.7 g/dl (32-36); MEAN PLATELET VOLUME 11.3 fL (7.4-10.4); PLATELET COUNT 163 K/uL (130-400); RED CELL DISTRIBUTION WIDTH CV 13.2 % (11.5-14.5); WHITE BLOOD COUNT 11.63 K/uL (4.8-10.8)
[2017-08-31 05:18] LABS: CALCIUM 9.6 mg/dl (8.5-10.1); CREATININE 1.54 mg/dl (0.60-1.40); POTASSIUM 4.5 mmol/L (3.5-5.1)
[2017-08-31 06:36] LABS: HEMOGLOBIN A1C 8.8 % (4.5-5.6)
[2017-08-31 07:08] VITALS: BP 166/90; PULSE 79; TEMP 36.7; O2SAT 92
[2017-08-31] MEDS: LOSARTAN POTASSIUM 50 MG TAB PO SCH (08:46)
[2017-08-31] MEDS: CEROVITE ADV FORMULA TAB PO SCH (08:46)
[2017-08-31] MEDS: ATORVASTATIN 40 MG TAB PO SCH (08:46)
[2017-08-31] MEDS: METOPROLOL SUCC 50MG EXT REL TAB PO SCH (08:47)
[2017-08-31] MEDS: OMEGA-3 (PURIFIED FISH OIL) 1 GM CAP PO SCH (08:47)
[2017-08-31] MEDS: ALLOPURINOL 100 MG TAB PO SCH (08:47)
[2017-08-31] MEDS: INSULIN ASPART 100 UNITS/ML 3 ML PEN SC SCH ×4 (08:51→21:00)
[2017-08-31] MEDS: INSULIN GLARGINE SQ SCH ×2 (08:51→21:13)
[2017-08-31] MEDS: CALCITONIN SALMON NA 200 IU/AC 3.7 ML BTL SCH (08:56)
[2017-08-31] MEDS ORDERED: CLOPIDOGREL BISULFATE 75 MG TAB PO SCH (09:00)
[2017-08-31] MEDS: OXYCODONE/ACETAMINOPHEN 5-325 TAB PO PRN ×2 (09:01→18:16)
[2017-08-31] MEDS: ASPIRIN 81 MG ECTAB PO SCH (09:49)
[2017-08-31] MEDS ORDERED: HydrALAZINE HCL 20 MG/ML VIAL IV. PRN (10:45)
--- NOTE | 2017-08-31 10:52 | Hospitalist Progress Note ---
Hospitalist Progress Note Date of Service Aug 31, 2017. Subjective Pt evaluation today including: conversation w/ patient, physical exam, lab review, review of studies, review of inpatient medication list Voiding: no voiding problems Patient resting in bed. Denies syncope, lightheadedness, dizziness w/ fall. Remembers entire events. Notes he has been falling more frequently lately due to loss of balance. Notes severe back pain with movement. Currently, mild pain- just received Percocet, which is helping w/ the pain. Eating and drinking OK. Patient denies any fever, chills, sweats, lightheadedness, dizziness, vision changes, CP, palpitations, edema, SOB, wheezing, cough, abdominal pain, nausea, vomiting, diarrhea, urinary symptoms, melena, numbness/tingling, weakness, anxiety/depression, active bleeding, or new skin discoloration/changes. Medications Current Inpatient Medications Medications (Trade) Dose Ordered Sig/Jeannette Route Start Time Stop Time Status Last Admin Dose Admin Acetaminophen (Tylenol Tab) 650 mg Q4H PRN PO 08/30/17 19:15 09/29/17 19:14 Magnesium Hydroxide (Milk Of Magnesia Susp) 30 ml Q6H PRN PO 08/30/17 19:15 09/29/17 19:14 Ondansetron HCl (Zofran Inj) 4 mg Q6H PRN IV 08/30/17 19:15 09/29/17 19:14 Insulin Aspart (novoLOG ASPART) SLIDING SCALE If C... ACHS SC 08/30/17 21:00 09/29/17 20:59 08/31/17 08:51 10 UNITS Glucose (Glucose 40% Gel) 15-30 GRAMS 15 GRAMS... UD PRN PO 08/30/17 19:15 09/29/17 19:14 Glucose (Glucose Chew Tab) 4-8 Tablets 4 Tabl... UD PRN PO 08/30/17 19:15 09/29/17 19:14 Dextrose (Dextrose 50% 50ML Syringe) 25-50ML OF 50% DW IV FOR... UD PRN IV 08/30/17 19:15 09/29/17 19:14 Glucagon (Glucagon Inj) 1 mg UD PRN SQ 08/30/17 19:15 09/29/17 19:14 Allopurinol (Zyloprim Tab) 100 mg DAILY PO 08/31/17 09:00 09/30/17 08:59 08/31/17 08:47 100 MG Aspirin (Ecotrin Tab) 81 mg DAILY PO 08/31/17 09:00 09/30/17 08:59 08/31/17 09:49 81 MG Atorvastatin Calcium (Lipitor Tab) 40 mg DAILY PO 08/31/17 09:00 09/30/17 08:59 08/31/17 08:46 40 MG Clopidogrel Bisulfate (plAVix TAB) 75 mg DAILY PO 08/31/17 09:00 09/30/17 08:59 08/31/17 08:47 75 MG Fish Oil ([place]-3 (Purified Fish Oil) Cap) 1 gm DAILY PO 08/31/17 09:00 09/30/17 08:59 08/31/17 08:47 1 GM Insulin Glargine (Lantus Vial) 55 units BID SQ 08/30/17 21:00 09/29/17 20:59 08/31/17 08:51 55 UNITS Losartan Potassium (coZAAR TAB) 100 mg DAILY PO 08/31/17 09:00 09/30/17 08:59 08/31/17 08:46 100 MG Metoprolol Succinate (Toprol Xl Tab) 50 mg DAILY PO 08/31/17 09:00 09/30/17 08:59 08/31/17 08:47 50 MG Multivitamins/ Minerals (Multivitamin W/ Minerals Tab) 1 tab DAILY PO 08/31/17 09:00 09/30/17 08:59 08/31/17 08:46 1 TAB Miscellaneous Information (Order Awaiting Action) 1 ea QS N/A 08/31/17 00:00 09/30/17 00:00 Calcitonin [place] (Fortical Nasal [place]) 1 spray DAILY NA 08/31/17 09:00 09/30/17 08:59 08/31/17 08:56 1 SPRAY Oxycodone/ Acetaminophen (Percocet 5-325mg Tab) 1 tab Q4H PRN PO 08/30/17 19:15 09/13/17 19:14 08/31/17 09:01 1 TAB Objective Vital Signs Date Time Temp Pulse Resp B/P (MAP) Pulse Ox O2 Delivery O2 Flow Rate FiO2 08/31/17 07:40 Room Air 08/31/17 07:08 36.7 79 17 166/90 (115) 92 Room Air 08/31/17 00:15 Room Air 08/30/17 22:59 37.6 87 16 137/73 (94) 92 Room Air 08/30/17 19:45 92 Room Air 08/30/17 19:45 37.1 90 16 161/95 (117) 92 Room Air 08/30/17 19:36 91 20 168/105 92 08/30/17 19:32 Room Air 08/30/17 19:31 89 19 180/105 92 Room Air 08/30/17 16:54 95 08/30/17 16:47 36.3 97 19 185/105 92 Room Air Physical Exam General Appearance: no apparent distress Eyes: normal inspection, PERRL ENT: hearing grossly normal Neck: supple Respiratory/Chest: lungs clear, no respiratory distress, no accessory muscle use Cardiovascular: regular rate, rhythm, + systolic murmur Abdomen: normal bowel sounds, non tender, soft Extremities: no pedal edema, no calf tenderness Neurologic/Psychiatric: alert, normal mood/affect, oriented x 3, + motor weakness (BLE ), + pertinent finding (no sensory deficits ) Skin: normal color, warm/dry, no rash Laboratory Results Last 24 Hours Test 08/30/17 17:18 08/30/17 20:14 08/30/17 20:23 08/31/17 04:35 White Blood Count 20.22 K/uL 11.63 K/uL Red Blood Count 5.26 M/uL 4.58 M/uL Hemoglobin 15.9 g/dL 13.8 g/dL Hematocrit 45.2 % 39.8 % Mean Corpuscular Volume 85.9 fL 86.9 fL Mean Corpuscular Hemoglobin 30.2 pg 30.1 pg Mean Corpuscular Hemoglobin Concent 35.2 g/dl 34.7 g/dl Platelet Count 171 K/uL 163 K/uL Mean Platelet Volume 11.7 fL 11.3 fL Neutrophils (%) (Auto) 87.6 % Lymphocytes (%) (Auto) 6.0 % Monocytes (%) (Auto) 5.8 % Eosinophils (%) (Auto) 0.0 % Basophils (%) (Auto) 0.1 % Neutrophils # (Auto) 17.68 K/uL Lymphocytes # (Auto) 1.22 K/uL Monocytes # (Auto) 1.17 K/uL Eosinophils # (Auto) 0.01 K/uL Basophils # (Auto) 0.03 K/uL RDW Standard Deviation 40.5 fL 42.0 fL RDW Coefficient of Variation 12.9 % 13.2 % Immature Granulocyte % (Auto) 0.5 % Immature Granulocyte # (Auto) 0.11 K/uL Sodium Level 133 mmol/L 137 mmol/L Potassium Level 4.5 mmol/L 4.5 mmol/L Chloride Level 100 mmol/L 106 mmol/L Carbon Dioxide Level 22 mmol/L 27 mmol/L Anion Gap 11.0 mmol/L 4.0 mmol/L Blood Urea Nitrogen 20 mg/dl 22 mg/dl Creatinine 1.54 mg/dl 1.54 mg/dl Est Creatinine Clear Calc Drug Dose 41.3 ml/min 41.3 ml/min Estimated GFR () 49.4 49.4 Estimated GFR (Non- 42.6 42.6 BUN/Creatinine Ratio 12.9 14.0 Random Glucose 305 mg/dl 191 mg/dl Calcium Level 10.6 mg/dl 9.6 mg/dl Total Creatine Kinase 100 U/L Creatine Kinase MB 1.9 ng/ml Creatine Kinase MB Ratio 1.9 Beta-Hydroxybutyric Acid 3.59 mg/dL Bedside Glucose 293 mg/dl Urine Color YELLOW Urine Appearance CLEAR Urine pH 5.0 Urine Specific [place] 1.025 Urine Protein TRACE Urine Glucose (UA) 3+ Urine Ketones TRACE Urine Occult Blood NEG Urine Nitrite NEG Urine Bilirubin NEG Urine Urobilinogen NEG Urine Leukocyte Esterase NEG Urine WBC (Auto) 1-5 /hpf Urine RBC (Auto) 0-4 /hpf Urine Hyaline Casts (Auto) 0 /lpf Urine Epithelial Cells (Auto) 0-5 /lpf Urine Bacteria (Auto) NEG Estimated Average Glucose 206 mg/dl Hemoglobin A1c 8.8 % Test 08/31/17 07:58 Bedside Glucose 177 mg/dl Assessment and Plan 77 y/o M who was admitted on 08/30 for T12 burst compression fx T12 burst compression fracture s/p mechanical fall: - Admitted to med/surg - Percocet PRN and Tylenol PRN for pain management - Leukocytosis, likely reactive- no s/s of infection- continue to follow CBC and monitor - Check vitamin D level - Calcitonin spray - PT/OT - Orthopedics consulted, appreciate recommendations - Orthotics consulted T2DM w/ hyperglycemia- hgbA1c 8.8.%: - Continue Lantus 55 u BID - BSG ACHS and ISS - Diabetic education consultation- at discharge: continue Lantus, NovoLog 20 u w / meals, routine BSG checks, f/u w/ Endocrinology as scheduled HTN- elevated likely due to pain response: - Continue Losartan 100 mg daily and Metoprolol 50 mg daily - IV Hydralazine PRN and pain control TIA, CVA, CAD s/p CABG- STABLE: Continue ASA, Plavix, Lipitor, Metoprolol CKD stage III- 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
[2017-08-31 10:57] VITALS: BP 142/75
[2017-08-31 11:17] VITALS: Ht 172.7 cm; Wt 82.3 kg
--- NOTE | 2017-08-31 13:38 | Orthopedic Consultation ---
Orthopedic Consultation Date of Consultation: Aug 31, 2017. Attending Physician: Mckay Odell D.O. Reason for Consultation: Back pain with T12 compression fracture History of Present Illness Said pleasant 77-year-old male who lives alone. Patient fell yesterday landing directly on his buttocks and had immediate onset of back pain. He subsequently was taken to the emergency room for evaluation. He has been diagnosed with a T12 compression fracture. Today the patient states his pain is quite incapacitating. Sitting up and rolling over creates marked discomfort of the thoracolumbar region. He denies any pain radiating into the lumbar spine or in his legs. Denies any numbness or tingling involving the perineal area or legs. He has no other complaints at this time. Past Medical/Surgical History Medical Problems: (1) Burst fracture of T12 vertebra Status: Acute (2) Fall Status: Acute (3) Radiculitis of right cervical region Status: Acute Social History Smoking Status: Never Smoker Alcohol Use: none Drug Use: none Marital Status: Housing Status: lives with family Occupation Status: retired Allergies Coded Allergies: No Known Allergies (Unverified , 02/15/17) Home Medications Scheduled Allopurinol (Zyloprim), 100 MG PO DAILY Aspirin (Aspirin), 81 MG PO DAILY Atorvastatin (Lipitor), 40 MG PO DAILY Clopidogrel Bisulfate (Plavix), 75 MG PO DAILY Fish Oil ([place]-3), 2 CAP PO DAILY Insulin Aspart (Novolog), 20 UNITS SQ UD Insulin Glargine (Lantus), 55 UNITS SQ AMPM Losartan Potassium (Cozaar), 100 MG PO DAILY Metoprolol Succinate (Metoprolol Succinate ER), 50 MG PO DAILY Multivitamins/Minerals (Mvi With Minerals), 1 TAB PO DAILY Vitamins C & E (Vitamin C), 1 CAP PO BID Current Inpatient Medications Current Inpatient Medications Medications (Trade) Dose Ordered Sig/Jeannette Route Start Time Stop Time Status Last Admin Dose Admin Acetaminophen (Tylenol Tab) 650 mg Q4H PRN PO 08/30/17 19:15 09/29/17 19:14 Magnesium Hydroxide (Milk Of Magnesia Susp) 30 ml Q6H PRN PO 08/30/17 19:15 09/29/17 19:14 Ondansetron HCl (Zofran Inj) 4 mg Q6H PRN IV 08/30/17 19:15 09/29/17 19:14 Insulin Aspart (novoLOG ASPART) SLIDING SCALE If C... ACHS SC 08/30/17 21:00 09/29/17 20:59 08/31/17 13:30 7 UNITS Glucose (Glucose 40% Gel) 15-30 GRAMS 15 GRAMS... UD PRN PO 08/30/17 19:15 09/29/17 19:14 Glucose (Glucose Chew Tab) 4-8 Tablets 4 Tabl... UD PRN PO 08/30/17 19:15 09/29/17 19:14 Dextrose (Dextrose 50% 50ML Syringe) 25-50ML OF 50% DW IV FOR... UD PRN IV 08/30/17 19:15 09/29/17 19:14 Glucagon (Glucagon Inj) 1 mg UD PRN SQ 08/30/17 19:15 09/29/17 19:14 Allopurinol (Zyloprim Tab) 100 mg DAILY PO 08/31/17 09:00 09/30/17 08:59 08/31/17 08:47 100 MG Aspirin (Ecotrin Tab) 81 mg DAILY PO 08/31/17 09:00 09/30/17 08:59 08/31/17 09:49 81 MG Atorvastatin Calcium (Lipitor Tab) 40 mg DAILY PO 08/31/17 09:00 09/30/17 08:59 08/31/17 08:46 40 MG Clopidogrel Bisulfate (plAVix TAB) 75 mg DAILY PO 08/31/17 09:00 09/30/17 08:59 08/31/17 08:47 75 MG Fish Oil ([place]-3 (Purified Fish Oil) Cap) 1 gm DAILY PO 08/31/17 09:00 09/30/17 08:59 08/31/17 08:47 1 GM Insulin Glargine (Lantus Vial) 55 units BID SQ 08/30/17 21:00 09/29/17 20:59 08/31/17 08:51 55 UNITS Losartan Potassium (coZAAR TAB) 100 mg DAILY PO 08/31/17 09:00 09/30/17 08:59 08/31/17 08:46 100 MG Metoprolol Succinate (Toprol Xl Tab) 50 mg DAILY PO 08/31/17 09:00 09/30/17 08:59 08/31/17 08:47 50 MG Multivitamins/ Minerals (Multivitamin W/ Minerals Tab) 1 tab DAILY PO 08/31/17 09:00 09/30/17 08:59 08/31/17 08:46 1 TAB Miscellaneous Information (Order Awaiting Action) 1 ea QS N/A 08/31/17 00:00 09/30/17 00:00 Calcitonin [place] (Fortical Nasal [place]) 1 spray DAILY NA 08/31/17 09:00 09/30/17 08:59 08/31/17 08:56 1 SPRAY Oxycodone/ Acetaminophen (Percocet 5-325mg Tab) 1 tab Q4H PRN PO 08/30/17 19:15 09/13/17 19:14 08/31/17 09:01 1 TAB Hydralazine HCl (HydrALAZINE INJ) 10 mg Q6H PRN IV. 08/31/17 10:45 09/30/17 10:44 Physical Exam Date Time Temp Pulse Resp B/P (MAP) Pulse Ox O2 Delivery O2 Flow Rate FiO2 08/31/17 10:57 142/75 (97) 08/31/17 07:40 Room Air 08/31/17 07:08 36.7 79 17 166/90 (115) 92 Room Air 08/31/17 00:15 Room Air 08/30/17 22:59 37.6 87 16 137/73 (94) 92 Room Air 08/30/17 19:45 92 Room Air 08/30/17 19:45 37.1 90 16 161/95 (117) 92 Room Air 08/30/17 19:36 91 20 168/105 92 08/30/17 19:32 Room Air 08/30/17 19:31 89 19 180/105 92 Room Air 08/30/17 16:54 95 08/30/17 16:47 36.3 97 19 185/105 92 Room Air On physical exam he is alert and oriented. He does have discomfort and ice it him up to inspect his spine. He has excellent strength to detailed testing bilateral lower extremities. Sensory is symmetric and intact. Laboratory Results Last 24 Hours Test 08/30/17 17:18 08/30/17 20:14 08/30/17 20:23 08/31/17 04:35 White Blood Count 20.22 K/uL 11.63 K/uL Red Blood Count 5.26 M/uL 4.58 M/uL Hemoglobin 15.9 g/dL 13.8 g/dL Hematocrit 45.2 % 39.8 % Mean Corpuscular Volume 85.9 fL 86.9 fL Mean Corpuscular Hemoglobin 30.2 pg 30.1 pg Mean Corpuscular Hemoglobin Concent 35.2 g/dl 34.7 g/dl Platelet Count 171 K/uL 163 K/uL Mean Platelet Volume 11.7 fL 11.3 fL Neutrophils (%) (Auto) 87.6 % Lymphocytes (%) (Auto) 6.0 % Monocytes (%) (Auto) 5.8 % Eosinophils (%) (Auto) 0.0 % Basophils (%) (Auto) 0.1 % Neutrophils # (Auto) 17.68 K/uL Lymphocytes # (Auto) 1.22 K/uL Monocytes # (Auto) 1.17 K/uL Eosinophils # (Auto) 0.01 K/uL Basophils # (Auto) 0.03 K/uL RDW Standard Deviation 40.5 fL 42.0 fL RDW Coefficient of Variation 12.9 % 13.2 % Immature Granulocyte % (Auto) 0.5 % Immature Granulocyte # (Auto) 0.11 K/uL Sodium Level 133 mmol/L 137 mmol/L Potassium Level 4.5 mmol/L 4.5 mmol/L Chloride Level 100 mmol/L 106 mmol/L Carbon Dioxide Level 22 mmol/L 27 mmol/L Anion Gap 11.0 mmol/L 4.0 mmol/L Blood Urea Nitrogen 20 mg/dl 22 mg/dl Creatinine 1.54 mg/dl 1.54 mg/dl Est Creatinine Clear Calc Drug Dose 41.3 ml/min 41.3 ml/min Estimated GFR () 49.4 49.4 Estimated GFR (Non- 42.6 42.6 BUN/Creatinine Ratio 12.9 14.0 Random Glucose 305 mg/dl 191 mg/dl Calcium Level 10.6 mg/dl 9.6 mg/dl Total Creatine Kinase 100 U/L Creatine Kinase MB 1.9 ng/ml Creatine Kinase MB Ratio 1.9 Beta-Hydroxybutyric Acid 3.59 mg/dL Bedside Glucose 293 mg/dl Urine Color YELLOW Urine Appearance CLEAR Urine pH 5.0 Urine Specific [place] 1.025 Urine Protein TRACE Urine Glucose (UA) 3+ Urine Ketones TRACE Urine Occult Blood NEG Urine Nitrite NEG Urine Bilirubin NEG Urine Urobilinogen NEG Urine Leukocyte Esterase NEG Urine WBC (Auto) 1-5 /hpf Urine RBC (Auto) 0-4 /hpf Urine Hyaline Casts (Auto) 0 /lpf Urine Epithelial Cells (Auto) 0-5 /lpf Urine Bacteria (Auto) NEG Estimated Average Glucose 206 mg/dl Hemoglobin A1c 8.8 % Test 08/31/17 07:58 08/31/17 12:00 Bedside Glucose 177 mg/dl 181 mg/dl Assessment & Plan Assessment T12 compression fracture. Plan at this time he is markedly uncomfortable his CAT scan demonstrates multilevel spondylosis with a low-grade disc phenomenon. This would create significant stress across the T12 area which does not seem to have calcified annular ligaments. This may create to the incomplete decrease likelihood of further collapse and instability. He would be a candidate for a kyphoplasty of T12. This would help with a component of his pain and allow us to mobilize him earlier. We would still proceed with a TLSO brace. I discussed with the patient the option of kyphoplasty is very interested in this procedure. We will tentatively plan for tomorrow afternoon if he is cleared medically. I will hold his Plavix for now.
[2017-08-31 15:44] VITALS: BP 130/70; PULSE 70; TEMP 37.1; O2SAT 91
--- NOTE | 2017-08-31 16:55 | Anesthesiology Progress Note ---
Pre-OP Anesthesia Assessment Date of Note Aug 31, 2017. Review patient information reviewed, chart reviewed, labs reviewed, acceptable for surgery Notes Elderly male fell at home sustaining T12 vertebral fracture. Scheduled for kyphoplasty. PMH is significant for HTN, DM, CAD/,CABG, old CVA with left hemiparesis, mild renal insufficiency, gout. Pt ambulates with walker so activity level is limited. He denies recent chest pain or dyspnea. He is at moderate risk for anesthesia owing to age and underlying cardiovascular disease. However, I do not believe further testing or intervention is indicated prior to kyphoplasty. Discussed risk vs. benefit with pt who expressed understanding and signed informed consent. He should be kept npo after midnight except for meds.
[2017-08-31 23:00] VITALS: BP 130/69; PULSE 80; TEMP 36.8; O2SAT 90
[2017-08-31] MEDS ORDERED: NURSING DECISION MEDICATION ORDER SCH (23:30)
[2017-09-01] VITALS (9 sets, daily range): BP systolic 126–172; BP diastolic 74–97; PULSE 75–94; TEMP 36.5–37.1; O2SAT 91–96
[2017-09-01] MEDS: INSULIN ASPART 100 UNITS/ML 3 ML PEN SC SCH ×5 (01:16→21:00)
[2017-09-01] MEDS: OXYCODONE/ACETAMINOPHEN 5-325 TAB PO PRN ×2 (05:31→23:27)
[2017-09-01 06:53] LABS: HEMOGLOBIN 14.5 g/dL (14.0-18.0); MEAN CELL VOLUME 88.1 fL (80-100); MEAN CORPUSCULAR HEMOGLOBIN 30.4 pg (25-34); MEAN CORPUSCULAR HGB CONC 34.5 g/dl (32-36); MEAN PLATELET VOLUME 11.3 fL (7.4-10.4); PLATELET COUNT 144 K/uL (130-400); RED CELL DISTRIBUTION WIDTH CV 13.1 % (11.5-14.5); RED CELL DISTRIBUTION WIDTH SD 42.4 fL (36.4-46.3); WHITE BLOOD COUNT 12.69 K/uL (4.8-10.8)
[2017-09-01 07:27] LABS: CREATININE 1.51 mg/dl (0.60-1.40)
[2017-09-01] MEDS ORDERED: INSULIN GLARGINE SQ SCH (09:00)
[2017-09-01] MEDS: CEROVITE ADV FORMULA TAB PO SCH (09:03)
[2017-09-01] MEDS: METOPROLOL SUCC 50MG EXT REL TAB PO SCH (09:04)
[2017-09-01] MEDS: CALCITONIN SALMON NA 200 IU/AC 3.7 ML BTL SCH (09:04)
[2017-09-01] MEDS: INSULIN GLARGINE SQ SCH ×2 (09:09→21:01)
[2017-09-01] MEDS ORDERED: FENTANYL CITRATE INJ 50 MCG/1 ML 2 ML VIAL ONE (09:20)
[2017-09-01] MEDS ORDERED: MIDAZOLAM HCL 1 MG/ML 2ML VIAL ONE (09:20)
--- NOTE | 2017-09-01 09:29 | History & Physical Bridge Note ---
H&P Re-Evaluation Bridge Note: I have examined the patient, reviewed the History & Physical and in the interval since the performance of the History & Physical I have noted the following changes of clinical significance: No changes noted
[2017-09-01] MEDS ORDERED: CONRAY 60% 50 ML VIAL ONE (09:47)
[2017-09-01] MEDS ORDERED: BUPIVACAINE/EPINEPHRINE 0.5% MPF 1:200,000 30 ML VIAL ONE (09:47)
[2017-09-01] MEDS ORDERED: HYDROmorphone INJ 2 MG/ML SYR/VIAL ONE (10:32)
[2017-09-01] MEDS ORDERED: DEXAMETHASONE SOD INJ 4 MG/ML VIAL ONE (10:37)
[2017-09-01] MEDS ORDERED: LIDOCAINE HCL 2% 2 ML VIAL (20MG/ML) ONE (10:37)
[2017-09-01] MEDS ORDERED: PHENYLEPHRINE 100MCG/ML 5ML SYR ONE (10:37)
[2017-09-01] MEDS ORDERED: ROCURONIUM BROMIDE 10 MG/ML 5 ML VIAL IV ONE (10:37)
[2017-09-01] MEDS ORDERED: EpHEDrine SULFATE 50MG/5ML SYR ONE (10:37)
[2017-09-01] MEDS ORDERED: CEFAZOLIN SOD 1 GM VIAL ONE (10:37)
[2017-09-01] MEDS ORDERED: NEOSTIGMINE METHYLSULFATE 1 MG/ML 10ML VIAL ONE (10:37)
[2017-09-01] MEDS ORDERED: ONDANSETRON INJ 2 MG/ML 2 ML VIAL ONE (10:37)
[2017-09-01] MEDS ORDERED: PROPOFOL IV EMULSION 10 MG/ML 20 ML VIAL IV ONE (10:37)
[2017-09-01] MEDS ORDERED: GLYCOPYRROLATE INJ 0.2 MG/ML VIAL ONE (10:37)
--- NOTE | 2017-09-01 10:47 | [facility] Operative Report ---
Operative Report Operative Date Sep 01, 2017. Pre-Operative Diagnosis T12 compression fracture Post-Operative Diagnosis T12 compression fracture Procedure(s) Performed 1. T12 kyphoplasty. #[address] Ben Brice Childcare Aide Surgeon(s) Lora Jameson PA-C Estimated Blood Loss 2 ml Specimens a. T12 Bone Biopsy Anesthesia Type General Description of Procedure Patient was met with preoperatively all questions addressed. After informed consent obtained. Patient was taken back to the operative suite. Patient underwent a general anesthetic and placed in a prone position the [place] table chest pad and hip bolsters. All bony prominences were well-padded eyes inspected to ensure no external pressure placed upon the. This point the thoracolumbar spine was prepped and draped in the normal sterile fashion. With the assistance of fluoroscopy in AP and lateral planes identified the T12 vertebral body. 2 small incisions were placed just lateral to the pedicles. I then inserted to Kyphon working cannulas by way of a transpedicular approach into the T12 vertebral body. 2 core biopsies were obtained. I then inserted 20 mm Kyphon balloons and sequentially inflated with fluids fluoroscopic visualization. These were subsequently removed and approximately 6 cc of Kyphon cement injected with fluoroscopic visualization. It demonstrated excellent interdigitation fill of the vertebral body. Working cannulas were then removed small incisions were closed with subcutaneous Monocryl and sterile dressings placed. Patient weakened taken to PACU stable condition. Please note Lora Garcia was present throughout the entire procedure involved in patient positioning complex portions of the surgery and final skin closure. I attest to the content of the Intraoperative Record and any orders documented therein. Any exceptions are noted below.
[2017-09-01] MEDS ORDERED: ACETAMINOPHEN 500 MG TAB PO PRN (11:00)
[2017-09-01] MEDS ORDERED: ONDANSETRON INJ 2 MG/ML 2 ML VIAL IV PRN ×2 (11:00→11:15)
[2017-09-01] MEDS ORDERED: ACETAMINOPHEN 325 MG TAB PO PRN (11:00)
[2017-09-01] MEDS ORDERED: DO NOT ADMINISTER FLU VACCINE PRN (11:00)
[2017-09-01] MEDS ORDERED: DO NOT ADMINISTER PNEUMOCOCCAL VACCINE PRN (11:00)
[2017-09-01] MEDS ORDERED: MAGNESIUM HYDROXIDE SUSP 30 ML UDC PO PRN (11:00)
[2017-09-01] MEDS ORDERED: FENTANYL CITRATE INJ 50 MCG/1 ML 2 ML VIAL IV PRN (11:15)
[2017-09-01] MEDS ORDERED: EpHEDrine SULFATE INJ 50 MG/ML AMP IV PRN (11:15)
[2017-09-01] MEDS ORDERED: ATROPINE SULFATE 0.1 MG/ML 5ML SYR IV PRN (11:15)
--- NOTE | 2017-09-01 11:19 | DIAGNOSTIC IMAGING REPORT ---
THORACIC SPINE 2 VIEW HISTORY: 77 years-old Male T12 KYPHOPLASTY acute compression deformity with T12 kyphoplasty COMPARISON: Thoracic spine CT 08/30/2017 TECHNIQUE: 2 spot fluoroscopic images of the thoracic spine were obtained utilizing 147.4 seconds fluoroscopy time. FINDINGS: Approximately 30% anterior endplate compression deformity of the T12 vertebral body redemonstrated with postprocedural changes of interval vertebroplasty. Cement material appears to be localized within the T12 vertebral body without extension into adjacent structures. Alignment is satisfactory. Atherosclerosis of the aorta. IMPRESSION: Status post vertebroplasty at T12 with satisfactory alignment. The above report was generated using voice recognition software. It may contain grammatical, syntax or spelling errors. Electronically signed by: Seng Royal M.D. 09/01/2017 11:17 AM Dictated Date/Time: 09/01/2017 11:15 AM
--- NOTE | 2017-09-01 11:48 | Anesthesiology Progress Note ---
Anesthesia Post Op Note Date & Time Sep 01, 2017 at 11:48 Vital Signs Pain Intensity: 0 Vital Signs Past 12 Hours Date Time Temp Pulse Resp B/P (MAP) Pulse Ox O2 Delivery O2 Flow Rate FiO2 09/01/17 11:35 36.2 71 16 145/69 95 Nasal Cannula 4 09/01/17 11:25 75 16 145/75 95 Nasal Cannula 4 09/01/17 11:15 76 16 137/89 98 Oxymask 10 09/01/17 11:05 84 16 142/62 98 Oxymask 10 09/01/17 10:57 36.0 84 16 136/70 97 Oxymask 10 Manual 09/01/17 09:05 79 150/85 (106) 09/01/17 07:45 Room Air 09/01/17 06:52 37.0 75 16 128/74 (92) 91 Room Air 09/01/17 00:30 Room Air Notes Mental Status: alert / awake / arousable, participated in evaluation Pt Amnestic to Procedure: Yes Nausea / Vomiting: improving with treatment Pain: adequately controlled Airway Patency, RR, SpO2: stable & adequate BP & HR: stable & adequate Hydration State: stable & adequate Anesthetic Complications: no major complications apparent
[2017-09-01] MEDS ORDERED: SODIUM CHLORIDE 0.9% 1000ML 1,000 ML IV SCH (12:00)
[2017-09-01] MEDS ORDERED: PROMETHAZINE HCL 25 MG TAB PO PRN (13:15)
--- NOTE | 2017-09-01 13:17 | Hospitalist Progress Note ---
Hospitalist Progress Note Date of Service Sep 01, 2017. Subjective Pt evaluation today including: conversation w/ patient, physical exam, lab review, review of inpatient medication list Voiding: no voiding problems Patient resting in bed. Just returned from OR. +nausea. IV Zofran PRN- no relief. Will add Phenergan PRN. No pain. No flatus/BM postop. Patient denies any fever, chills, sweats, lightheadedness, dizziness, vision changes, CP, palpitations, edema, SOB, wheezing, cough, abdominal pain, vomiting , diarrhea, urinary symptoms, melena, numbness/tingling, weakness, muscle/joint pain, anxiety/depression, active bleeding, or new skin discoloration/changes. Medications Current Inpatient Medications Medications (Trade) Dose Ordered Sig/Jeannette Route Start Time Stop Time Status Last Admin Dose Admin Acetaminophen (Tylenol Tab) 650 mg Q4H PRN PO 08/30/17 19:15 09/29/17 19:14 Magnesium Hydroxide (Milk Of Magnesia Susp) 30 ml Q6H PRN PO 08/30/17 19:15 09/29/17 19:14 Ondansetron HCl (Zofran Inj) 4 mg Q6H PRN IV 08/30/17 19:15 09/29/17 19:14 Glucose (Glucose 40% Gel) 15-30 GRAMS 15 GRAMS... UD PRN PO 08/30/17 19:15 09/29/17 19:14 Glucose (Glucose Chew Tab) 4-8 Tablets 4 Tabl... UD PRN PO 08/30/17 19:15 09/29/17 19:14 Dextrose (Dextrose 50% 50ML Syringe) 25-50ML OF 50% DW IV FOR... UD PRN IV 08/30/17 19:15 09/29/17 19:14 Glucagon (Glucagon Inj) 1 mg UD PRN SQ 08/30/17 19:15 09/29/17 19:14 Allopurinol (Zyloprim Tab) 100 mg DAILY PO 08/31/17 09:00 09/30/17 08:59 Future Hold 08/31/17 08:47 100 MG Aspirin (Ecotrin Tab) 81 mg DAILY PO 08/31/17 09:00 09/30/17 08:59 Future Hold 08/31/17 09:49 81 MG Atorvastatin Calcium (Lipitor Tab) 40 mg DAILY PO 08/31/17 09:00 09/30/17 08:59 Future Hold 08/31/17 08:46 40 MG Fish Oil ([place]-3 (Purified Fish Oil) Cap) 1 gm DAILY PO 08/31/17 09:00 09/30/17 08:59 Future Hold 08/31/17 08:47 1 GM Losartan Potassium (coZAAR TAB) 100 mg DAILY PO 08/31/17 09:00 09/30/17 08:59 Future Hold 08/31/17 08:46 100 MG Metoprolol Succinate (Toprol Xl Tab) 50 mg DAILY PO 08/31/17 09:00 09/30/17 08:59 09/01/17 09:04 50 MG Multivitamins/ Minerals (Multivitamin W/ Minerals Tab) 1 tab DAILY PO 08/31/17 09:00 09/30/17 08:59 09/01/17 09:03 1 TAB Miscellaneous Information (Order Awaiting Action) 1 ea QS N/A 08/31/17 00:00 09/30/17 00:00 Calcitonin [place] (Fortical Nasal [place]) 1 spray DAILY NA 08/31/17 09:00 09/30/17 08:59 09/01/17 09:04 1 SPRAY Oxycodone/ Acetaminophen (Percocet 5-325mg Tab) 1 tab Q4H PRN PO 08/30/17 19:15 09/13/17 19:14 09/01/17 05:31 1 TAB Hydralazine HCl (HydrALAZINE INJ) 10 mg Q6H PRN IV. 08/31/17 10:45 09/30/17 10:44 Insulin Aspart (novoLOG ASPART) SLIDING SCALE If C... Q6 SC 09/01/17 00:00 10/01/17 00:00 Insulin Glargine (Lantus Vial) 20 units BID SQ 09/01/17 09:00 09/29/17 20:59 09/01/17 09:09 20 UNITS Docusate Sodium (coLACE CAP) 100 mg BID PO 09/01/17 21:00 10/01/17 20:59 Pneumococcal Polysaccharide Vaccine 1 ea PRN PRN N/A 09/01/17 11:00 10/01/17 10:59 Influenza Virus Vacc Triv Types A&B 1 ea PRN PRN N/A 09/01/17 11:00 10/01/17 10:59 Sodium Chloride 1,000 ml @ 80 mls/hr [id number] IV 09/01/17 12:00 09/02/17 11:59 Polyethylene (Miralax Powder Packet) 17 gm DAILY PO 09/03/17 09:00 10/03/17 08:59 Bisacodyl (Dulcolax Tab) 5 mg DAILY PRN PO 09/03/17 06:00 10/03/17 05:59 Bisacodyl (Dulcolax Supp) 10 mg DAILY PRN [place] 09/03/17 06:00 10/03/17 05:59 Cefazolin Sodium 1000 mg/Syringe 7.5 ml @ 2.5 mls/min Q8H IV 09/01/17 18:00 09/02/17 10:02 Fentanyl Citrate (Fentanyl Inj) 25 mcg Q5M PRN IV 09/01/17 11:15 09/01/17 16:15 Ondansetron HCl (Zofran Inj) 4 mg ONE PRN IV 09/01/17 11:15 09/01/17 16:15 09/01/17 11:52 4 MG Ephedrine Sulfate (EpHEDrine SULFATE INJ) 5 mg Q5M PRN IV 09/01/17 11:15 09/01/17 16:15 Atropine Sulfate (Atropine Sulfate 0.1mg/ml Inj) 0.5 mg Q1M PRN IV 09/01/17 11:15 09/01/17 16:15 Objective Vital Signs Date Time Temp Pulse Resp B/P (MAP) Pulse Ox O2 Delivery O2 Flow Rate FiO2 09/01/17 06:52 37.0 75 16 128/74 (92) 91 Room Air 09/01/17 00:30 Room Air 08/31/17 23:00 36.8 80 16 130/69 (89) 90 Room Air 08/31/17 15:44 37.1 70 16 130/70 (90) 91 Room Air 08/31/17 15:30 Room Air 08/31/17 10:57 142/75 (97) Physical Exam General Appearance: no apparent distress Eyes: normal inspection, PERRL ENT: hearing grossly normal Neck: supple Respiratory/Chest: lungs clear, no respiratory distress, no accessory muscle use Cardiovascular: regular rate, rhythm, + systolic murmur Abdomen: normal bowel sounds, non tender, soft Extremities: no pedal edema, no calf tenderness Neurologic/Psychiatric: no motor/sensory deficits, alert, normal mood/affect, oriented x 3 Skin: normal color, warm/dry, no rash Laboratory Results Last 24 Hours Test 08/31/17 12:00 08/31/17 16:41 08/31/17 21:09 09/01/17 01:12 Bedside Glucose 181 mg/dl 157 mg/dl 101 mg/dl 100 mg/dl Test 09/01/17 06:09 09/01/17 06:32 Bedside Glucose 119 mg/dl White Blood Count 12.69 K/uL Red Blood Count 4.77 M/uL Hemoglobin 14.5 g/dL Hematocrit 42.0 % Mean Corpuscular Volume 88.1 fL Mean Corpuscular Hemoglobin 30.4 pg Mean Corpuscular Hemoglobin Concent 34.5 g/dl RDW Standard Deviation 42.4 fL RDW Coefficient of Variation 13.1 % Platelet Count 144 K/uL Mean Platelet Volume 11.3 fL Sodium Level 137 mmol/L Potassium Level 4.0 mmol/L Chloride Level 106 mmol/L Carbon Dioxide Level 25 mmol/L Anion Gap 6.0 mmol/L Blood Urea Nitrogen 25 mg/dl Creatinine 1.51 mg/dl Est Creatinine Clear Calc Drug Dose 42.2 ml/min Estimated GFR () 50.5 Estimated GFR (Non- 43.6 BUN/Creatinine Ratio 16.5 Random Glucose 115 mg/dl Calcium Level 10.0 mg/dl 25-Hydroxy Vitamin D Total 47.9 ng/ml Assessment and Plan 77 y/o M who was admitted on 08/30 for T12 burst compression fx T12 burst compression fracture from mechanical fall s/p kyphoplasty by Dr. Brice on 09/01: - Admitted to med/surg - Leukocytosis, likely reactive- no s/s of infection- continue to follow CBC and monitor- STABLE - Check vitamin D level- WNL - Calcitonin spray - Orthopedics consulted, appreciate recommendations- surgical management, pain management, PT/OT, and DVT prophylaxis as per orthopedics - Orthotics consulted- TLSO brace provided - Follow postop CBC and PRP - IV Zofran and Phenergan PRN for nausea postop T2DM w/ hyperglycemia- hgbA1c 8.8.%: - Continue Lantus 55 u BID- Lantus 20 u BID while NPO for orthopedics procedure - resume normal dosage once tolerating diet - BSG ACHS and ISS - Diabetic education consultation- at discharge: continue Lantus, NovoLog 20 u w / meals, routine BSG checks, f/u w/ Endocrinology as scheduled HTN- elevated likely due to pain response- STABLE: - Continue Metoprolol 50 mg daily - Losartan held pending postop PRP - IV Hydralazine PRN and pain control TIA, CVA, CAD s/p CABG- STABLE: - Continue ASA, Lipitor, Metoprolol - Plavix held as per orthopedics CKD stage III- baseline drug clerk 1.5- STABLE Gout: Continue Allopurinol DVT prophylaxis: As per surgical team Code status: FULL, NO MECH VENT Dispo: From home- will likely need placement- PT/OT and CM consulted
[2017-09-01] MEDS ORDERED: CEFAZOLIN IV 1,000 MG in DEXTROSE 5% 50ML 50 ML IV SCH (14:00)
[2017-09-01] MEDS ORDERED: NURSING VERBAL MED ORDER ONE ×2 (14:30→18:45)
[2017-09-01] MEDS ORDERED: COUGH DROP (SUGAR FREE) LOZ 24 LOZ/1 BOX LOZ PRN (15:30)
[2017-09-01] MEDS ORDERED: NURSING DECISION MEDICATION ORDER SCH (15:30)
[2017-09-01] MEDS: CEFAZOLIN IV 1,000 MG in SYRINGE 0 ML IV SCH (18:36)
[2017-09-01] MEDS: DOCUSATE SODIUM 100 MG CAP PO SCH (20:58)
[2017-09-02] MEDS: CEFAZOLIN IV 1,000 MG in SYRINGE 0 ML IV SCH ×2 (01:43→10:14)
[2017-09-02 03:17] VITALS: BP 130/74; PULSE 75; TEMP 36.9; O2SAT 94
[2017-09-02 07:44] LABS: CALCIUM 9.9 mg/dl (8.5-10.1); CREATININE 1.49 mg/dl (0.60-1.40); POTASSIUM 3.8 mmol/L (3.5-5.1)
[2017-09-02 07:45] VITALS: BP 146/80; PULSE 82; TEMP 36.8; O2SAT 90
[2017-09-02 07:49] LABS: HEMATOCRIT 39.1 % (42-52); HEMOGLOBIN 13.3 g/dL (14.0-18.0); MEAN CELL VOLUME 88.7 fL (80-100); MEAN CORPUSCULAR HEMOGLOBIN 30.2 pg (25-34); MEAN PLATELET VOLUME 11.6 fL (7.4-10.4); PLATELET COUNT 155 K/uL (130-400); RED CELL DISTRIBUTION WIDTH CV 13.1 % (11.5-14.5); RED CELL DISTRIBUTION WIDTH SD 42.5 fL (36.4-46.3)
[2017-09-02] MEDS: OXYCODONE/ACETAMINOPHEN 5-325 TAB PO PRN ×3 (07:56→20:26)
--- NOTE | 2017-09-02 08:19 | Progress Note ---
Progress Note Date of Service Sep 02, 2017. Progress Note Patient's still complaining of some back pain. He believes it is improved overall. On exam is good strength testing sitting up reasonably well. Assessment status post kyphoplasty. Plan at this time we will initiate physical therapy today. When the brace arrives he is to wear this when up and amatory he is not to have the brace when in bed or in the chair.
[2017-09-02] MEDS: CALCITONIN SALMON NA 200 IU/AC 3.7 ML BTL SCH (08:43)
[2017-09-02] MEDS: DOCUSATE SODIUM 100 MG CAP PO SCH ×2 (08:44→20:26)
[2017-09-02] MEDS: CEROVITE ADV FORMULA TAB PO SCH (08:44)
[2017-09-02] MEDS: METOPROLOL SUCC 50MG EXT REL TAB PO SCH (08:45)
[2017-09-02] MEDS: INSULIN ASPART 100 UNITS/ML 3 ML PEN SC SCH ×4 (08:57→21:00)
[2017-09-02] MEDS: INSULIN GLARGINE SQ SCH ×2 (08:57→22:12)
[2017-09-02] MEDS ORDERED: POLYETHYLENE (MIRALAX) 17 GM PACK PO ONE (09:45)
[2017-09-02] MEDS ORDERED: LOSARTAN POTASSIUM 50 MG TAB PO ONE (10:30)
--- NOTE | 2017-09-02 10:46 | Anesthesiology Progress Note ---
Anesthesia Post Op Note Date & Time Sep 02, 2017 at 10:45 Vital Signs Vital Signs Past 12 Hours Date Time Temp Pulse Resp B/P (MAP) Pulse Ox O2 Delivery O2 Flow Rate FiO2 09/02/17 07:50 Room Air 09/02/17 07:45 36.8 82 18 146/80 (102) 90 Room Air 09/02/17 03:17 36.9 75 16 130/74 (92) 94 Room Air 09/02/17 00:30 Room Air 09/01/17 23:05 37.1 79 17 137/74 (95) 92 Room Air Notes Mental Status: alert / awake / arousable, participated in evaluation Pt Amnestic to Procedure: Yes Nausea / Vomiting: adequately controlled Pain: adequately controlled Airway Patency, RR, SpO2: stable & adequate BP & HR: stable & adequate Hydration State: stable & adequate Anesthetic Complications: no major complications apparent
[2017-09-02 11:15] VITALS: BP 115/72; PULSE 81; TEMP 36.6; O2SAT 92
--- NOTE | 2017-09-02 11:26 | Hospitalist Progress Note ---
Hospitalist Progress Note Date of Service Sep 02, 2017. Subjective Pt evaluation today including: conversation w/ patient, physical exam, lab review, conversation w/ home care consultant (Dr. Brice), review of inpatient medication list Voiding: no voiding problems Patient resting in bed. Eating and drinking OK. Nausea has resolved. No BM in a few days. +flatus postop. To work w/ PT/OT today per orthopedics. Will likely need rehab- lives alone- hoping for [facility]. Pain currently 01/24- just given PRN pain medications. Brace is at bedside. Patient denies any fever, chills, sweats, lightheadedness, dizziness, vision changes, CP, palpitations, edema, SOB, wheezing, cough, abdominal pain, nausea, vomiting, diarrhea, urinary symptoms, melena, numbness/tingling, weakness, anxiety/depression, active bleeding, or new skin discoloration/changes. Medications Current Inpatient Medications Medications (Trade) Dose Ordered Sig/Jeannette Route Start Time Stop Time Status Last Admin Dose Admin Acetaminophen (Tylenol Tab) 650 mg Q4H PRN PO 08/30/17 19:15 09/29/17 19:14 09/02/17 01:43 650 MG Magnesium Hydroxide (Milk Of Magnesia Susp) 30 ml Q6H PRN PO 08/30/17 19:15 09/29/17 19:14 Ondansetron HCl (Zofran Inj) 4 mg Q6H PRN IV 08/30/17 19:15 09/29/17 19:14 Glucose (Glucose 40% Gel) 15-30 GRAMS 15 GRAMS... UD PRN PO 08/30/17 19:15 09/29/17 19:14 Glucose (Glucose Chew Tab) 4-8 Tablets 4 Tabl... UD PRN PO 08/30/17 19:15 09/29/17 19:14 Dextrose (Dextrose 50% 50ML Syringe) 25-50ML OF 50% DW IV FOR... UD PRN IV 08/30/17 19:15 09/29/17 19:14 Glucagon (Glucagon Inj) 1 mg UD PRN SQ 08/30/17 19:15 09/29/17 19:14 Allopurinol (Zyloprim Tab) 100 mg DAILY PO 08/31/17 09:00 09/30/17 08:59 Future hold 08/31/17 08:47 100 MG Aspirin (Ecotrin Tab) 81 mg DAILY PO 08/31/17 09:00 09/30/17 08:59 Future hold 08/31/17 09:49 81 MG Atorvastatin Calcium (Lipitor Tab) 40 mg DAILY PO 08/31/17 09:00 09/30/17 08:59 Future hold 08/31/17 08:46 40 MG Fish Oil ([place]-3 (Purified Fish Oil) Cap) 1 gm DAILY PO 08/31/17 09:00 09/30/17 08:59 Future hold 08/31/17 08:47 1 GM Losartan Potassium (coZAAR TAB) 100 mg DAILY PO 08/31/17 09:00 09/30/17 08:59 Future hold 08/31/17 08:46 100 MG Metoprolol Succinate (Toprol Xl Tab) 50 mg DAILY PO 08/31/17 09:00 09/30/17 08:59 09/02/17 08:45 50 MG Multivitamins/ Minerals (Multivitamin W/ Minerals Tab) 1 tab DAILY PO 08/31/17 09:00 09/30/17 08:59 09/02/17 08:44 1 TAB Miscellaneous Information (Order Awaiting Action) 1 ea QS N/A 08/31/17 00:00 09/30/17 00:00 Calcitonin [place] (Fortical Nasal [place]) 1 spray DAILY NA 08/31/17 09:00 09/30/17 08:59 09/02/17 08:43 1 SPRAY Oxycodone/ Acetaminophen (Percocet 5-325mg Tab) 1 tab Q4H PRN PO 08/30/17 19:15 09/13/17 19:14 09/02/17 07:56 1 TAB Hydralazine HCl (HydrALAZINE INJ) 10 mg Q6H PRN IV. 08/31/17 10:45 09/30/17 10:44 Docusate Sodium (coLACE CAP) 100 mg BID PO 09/01/17 21:00 10/01/17 20:59 09/02/17 08:44 100 MG Pneumococcal Polysaccharide Vaccine 1 ea PRN PRN N/A 09/01/17 11:00 10/01/17 10:59 Influenza Virus Vacc Triv Types A&B 1 ea PRN PRN N/A 09/01/17 11:00 10/01/17 10:59 Polyethylene (Miralax Powder Packet) 17 gm DAILY PO 09/03/17 09:00 10/03/17 08:59 Bisacodyl (Dulcolax Tab) 5 mg DAILY PRN PO 09/03/17 06:00 10/03/17 05:59 Bisacodyl (Dulcolax Supp) 10 mg DAILY PRN [place] 09/03/17 06:00 10/03/17 05:59 Promethazine HCl (Phenergan Tab) 12.5 mg Q6H PRN PO 09/01/17 13:15 10/01/17 13:14 Insulin Aspart (novoLOG ASPART) SLIDING SCALE If C... ACHS SC 09/01/17 17:15 10/01/17 00:00 09/02/17 08:57 5 UNITS Menthol (Nice [place]) 1 graham PRN PRN GRAHAM 09/01/17 15:30 10/01/17 15:29 Insulin Glargine (Lantus Vial) 55 units BID SQ 09/02/17 21:00 09/29/17 20:59 Objective Vital Signs Date Time Temp Pulse Resp B/P (MAP) Pulse Ox O2 Delivery O2 Flow Rate FiO2 09/02/17 11:15 36.6 81 18 115/72 (86) 92 Room Air 09/02/17 07:50 Room Air 09/02/17 07:45 36.8 82 18 146/80 (102) 90 Room Air 09/02/17 03:17 36.9 75 16 130/74 (92) 94 Room Air 09/02/17 00:30 Room Air 09/01/17 23:05 37.1 79 17 137/74 (95) 92 Room Air 09/01/17 19:20 36.5 94 18 127/77 (94) 94 Room Air 09/01/17 15:10 Nasal Cannula 2.0 09/01/17 15:01 36.8 86 18 131/74 (93) 96 Nasal Cannula 4.0 09/01/17 14:00 86 17 154/84 (107) 92 Nasal Cannula 4.0 09/01/17 12:55 85 18 153/82 (105) 96 Nasal Cannula 4.0 09/01/17 12:37 36.5 78 16 172/82 (112) 94 Nasal Cannula 4.0 09/01/17 12:00 95 Nasal Cannula 4.0 09/01/17 12:00 36.5 80 16 126/97 (107) 95 Nasal Cannula 4.0 09/01/17 12:00 Nasal Cannula 4.0 09/01/17 11:35 36.2 71 16 145/69 95 Nasal Cannula 4 09/01/17 11:25 75 16 145/75 95 Nasal Cannula 4 Physical Exam General Appearance: no apparent distress Eyes: normal inspection, PERRL ENT: hearing grossly normal Neck: supple Respiratory/Chest: lungs clear, no respiratory distress, no accessory muscle use Cardiovascular: regular rate, rhythm, + systolic murmur Abdomen: normal bowel sounds, non tender, soft Extremities: no pedal edema, no calf tenderness Neurologic/Psychiatric: no motor/sensory deficits, alert, normal mood/affect, oriented x 3 Skin: normal color, warm/dry, no rash Laboratory Results Last 24 Hours Test 09/01/17 12:13 09/01/17 17:04 09/01/17 20:54 09/02/17 06:52 Bedside Glucose 162 mg/dl 192 mg/dl 266 mg/dl White Blood Count 16.00 K/uL Red Blood Count 4.41 M/uL Hemoglobin 13.3 g/dL Hematocrit 39.1 % Mean Corpuscular Volume 88.7 fL Mean Corpuscular Hemoglobin 30.2 pg Mean Corpuscular Hemoglobin Concent 34.0 g/dl RDW Standard Deviation 42.5 fL RDW Coefficient of Variation 13.1 % Platelet Count 155 K/uL Mean Platelet Volume 11.6 fL Sodium Level 138 mmol/L Potassium Level 3.8 mmol/L Chloride Level 104 mmol/L Carbon Dioxide Level 26 mmol/L Anion Gap 8.0 mmol/L Blood Urea Nitrogen 24 mg/dl Creatinine 1.49 mg/dl Est Creatinine Clear Calc Drug Dose 42.7 ml/min Estimated GFR () 51.4 Estimated GFR (Non- 44.3 BUN/Creatinine Ratio 16.0 Random Glucose 96 mg/dl Calcium Level 9.9 mg/dl Test 09/02/17 08:13 Bedside Glucose 91 mg/dl Assessment and Plan 77 y/o M who was admitted on 08/30 for T12 burst compression fx T12 burst compression fracture from mechanical fall s/p kyphoplasty by Dr. Brice on 09/01: - Admitted to med/surg - Leukocytosis, likely postop response- no s/s of infection- continue to follow CBC and monitor - Check vitamin D level- WNL - Calcitonin spray - Orthopedics consulted, appreciate recommendations- surgical management, pain management, PT/OT, and DVT prophylaxis as per orthopedics - Orthotics consulted- TLSO brace provided - Follow postop CBC and PRP- STABLE Constipation: Bowel regimen ordered T2DM w/ hyperglycemia- hgbA1c 8.8.%: - Continue Lantus 55 u BID - BSG ACHS and ISS - Diabetic education consultation- at discharge: continue Lantus, NovoLog 20 u w / meals, routine BSG checks, f/u w/ Endocrinology as scheduled HTN- STABLE: - Continue Metoprolol 50 mg daily - Resume Losartan 100 mg daily - IV Hydralazine PRN TIA, CVA, CAD s/p CABG- STABLE: - Continue ASA, Lipitor, Metoprolol - Resume Plavix- OK by orthopedics CKD stage III- baseline litigator 1.5- STABLE Gout: Continue Allopurinol DVT prophylaxis: ASA + Plavix Code status: FULL, NO [facility] VENT Dispo: From home, lives alone- will likely need placement, hoping for [facility]- PT/ OT and CM following
[2017-09-02] MEDS ORDERED: CLOPIDOGREL BISULFATE 75 MG TAB PO ONE (11:30)
[2017-09-02 15:31] VITALS: BP 132/72; PULSE 67; TEMP 36.9; O2SAT 91
[2017-09-02 22:52] VITALS: BP 146/81; PULSE 71; TEMP 37.1; O2SAT 91
[2017-09-03] MEDS ORDERED: BISACODYL 5 MG TABEC PO PRN (06:00)
[2017-09-03] MEDS ORDERED: BISACODYL 10 MG SUPP PR PRN (06:00)
[2017-09-03 06:06] LABS: HEMATOCRIT 39.4 % (42-52); HEMOGLOBIN 13.2 g/dL (14.0-18.0); MEAN CELL VOLUME 88.5 fL (80-100); MEAN CORPUSCULAR HEMOGLOBIN 29.7 pg (25-34); MEAN CORPUSCULAR HGB CONC 33.5 g/dl (32-36); MEAN PLATELET VOLUME 11.5 fL (7.4-10.4); PLATELET COUNT 155 K/uL (130-400); RED CELL DISTRIBUTION WIDTH CV 13.3 % (11.5-14.5); RED CELL DISTRIBUTION WIDTH SD 43.2 fL (36.4-46.3)
[2017-09-03] MEDS: OXYCODONE/ACETAMINOPHEN 5-325 TAB PO PRN ×3 (06:14→23:41)
[2017-09-03 06:43] LABS: CALCIUM 9.7 mg/dl (8.5-10.1); CREATININE 1.6 mg/dl (0.60-1.40); POTASSIUM 3.7 mmol/L (3.5-5.1)
[2017-09-03 07:27] VITALS: BP 143/73; PULSE 69; TEMP 36.9; O2SAT 94
[2017-09-03] MEDS: INSULIN ASPART 100 UNITS/ML 3 ML PEN SC SCH ×4 (08:00→22:10)
[2017-09-03] MEDS: METOPROLOL SUCC 50MG EXT REL TAB PO SCH (09:09)
[2017-09-03] MEDS: CEROVITE ADV FORMULA TAB PO SCH (09:09)
[2017-09-03] MEDS: DOCUSATE SODIUM 100 MG CAP PO SCH ×2 (09:09→21:20)
[2017-09-03] MEDS: ASPIRIN 81 MG ECTAB PO SCH (09:10)
[2017-09-03] MEDS: LOSARTAN POTASSIUM 50 MG TAB PO SCH (09:10)
[2017-09-03] MEDS: CLOPIDOGREL BISULFATE 75 MG TAB PO SCH (09:10)
[2017-09-03] MEDS: ALLOPURINOL 100 MG TAB PO SCH (09:10)
[2017-09-03] MEDS: OMEGA-3 (PURIFIED FISH OIL) 1 GM CAP PO SCH (09:11)
[2017-09-03] MEDS: CALCITONIN SALMON NA 200 IU/AC 3.7 ML BTL SCH (09:11)
[2017-09-03] MEDS: ATORVASTATIN 40 MG TAB PO SCH (09:11)
[2017-09-03] MEDS: POLYETHYLENE (MIRALAX) 17 GM PACK PO SCH (09:11)
[2017-09-03] MEDS: INSULIN GLARGINE SQ SCH (09:16)
[2017-09-03] MEDS ORDERED: SENNA 8.6 MG TAB PO ONE (10:04)
--- NOTE | 2017-09-03 13:58 | Progress Note ---
Progress Note Date of Service Sep 03, 2017. Progress Note Patient states his back pain is significantly improved. He has no leg pain. On exam his vitals are stable he is in a chair at the bedside with a brace in place. He has good strength testing and decreased pain to palpation and percussion of the thoracolumbar spine. Assessment status post kyphoplasty. Plan at this time he is to be discharged to [facility] was seen in the office in 2 weeks to update x-rays.
[2017-09-03 15:11] VITALS: BP 153/70; PULSE 71; TEMP 36.9; O2SAT 95
--- NOTE | 2017-09-03 15:12 | Hospitalist Progress Note ---
Hospitalist Progress Note Date of Service Sep 03, 2017. Subjective Pt evaluation today including: conversation w/ patient, physical exam, lab review, review of inpatient medication list Voiding: no voiding problems Patient sitting in bedside chair w/ back brace on. Feeling well. Eating and drinking OK. Pain is well controlled and improving. No BM since Wednesday. Denies discomfort. N/V. Bowel regimen ordered. Patient denies any fever, chills, sweats, lightheadedness, dizziness, vision changes, CP, palpitations, edema, SOB, wheezing, cough, abdominal pain, nausea, vomiting, diarrhea, urinary symptoms, melena, numbness/tingling, weakness, anxiety/depression, active bleeding, or new skin discoloration/changes. Medications Current Inpatient Medications Medications (Trade) Dose Ordered Sig/Jeannette Route Start Time Stop Time Status Last Admin Dose Admin Acetaminophen (Tylenol Tab) 650 mg Q4H PRN PO 08/30/17 19:15 09/29/17 19:14 09/02/17 01:43 650 MG Magnesium Hydroxide (Milk Of Magnesia Susp) 30 ml Q6H PRN PO 08/30/17 19:15 09/29/17 19:14 Ondansetron HCl (Zofran Inj) 4 mg Q6H PRN IV 08/30/17 19:15 09/29/17 19:14 Glucose (Glucose 40% Gel) 15-30 GRAMS 15 GRAMS... UD PRN PO 08/30/17 19:15 09/29/17 19:14 Glucose (Glucose Chew Tab) 4-8 Tablets 4 Tabl... UD PRN PO 08/30/17 19:15 09/29/17 19:14 Dextrose (Dextrose 50% 50ML Syringe) 25-50ML OF 50% DW IV FOR... UD PRN IV 08/30/17 19:15 09/29/17 19:14 Glucagon (Glucagon Inj) 1 mg UD PRN SQ 08/30/17 19:15 09/29/17 19:14 Allopurinol (Zyloprim Tab) 100 mg DAILY PO 08/31/17 09:00 09/30/17 08:59 Future hold 09/03/17 09:10 100 MG Aspirin (Ecotrin Tab) 81 mg DAILY PO 08/31/17 09:00 09/30/17 08:59 Future hold 09/03/17 09:10 81 MG Atorvastatin Calcium (Lipitor Tab) 40 mg DAILY PO 08/31/17 09:00 09/30/17 08:59 Future hold 09/03/17 09:11 40 MG Fish Oil ([place]-3 (Purified Fish Oil) Cap) 1 gm DAILY PO 08/31/17 09:00 09/30/17 08:59 Future hold 09/03/17 09:11 1 GM Losartan Potassium (coZAAR TAB) 100 mg DAILY PO 08/31/17 09:00 09/30/17 08:59 Future hold 09/03/17 09:10 100 MG Metoprolol Succinate (Toprol Xl Tab) 50 mg DAILY PO 08/31/17 09:00 09/30/17 08:59 09/03/17 09:09 50 MG Multivitamins/ Minerals (Multivitamin W/ Minerals Tab) 1 tab DAILY PO 08/31/17 09:00 09/30/17 08:59 09/03/17 09:09 1 TAB Miscellaneous Information (Order Awaiting Action) 1 ea QS N/A 08/31/17 00:00 09/30/17 00:00 Calcitonin [place] (Fortical Nasal [place]) 1 spray DAILY NA 08/31/17 09:00 09/30/17 08:59 09/03/17 09:11 1 SPRAY Oxycodone/ Acetaminophen (Percocet 5-325mg Tab) 1 tab Q4H PRN PO 08/30/17 19:15 09/13/17 19:14 09/03/17 06:14 1 TAB Hydralazine HCl (HydrALAZINE INJ) 10 mg Q6H PRN IV. 08/31/17 10:45 09/30/17 10:44 Docusate Sodium (coLACE CAP) 100 mg BID PO 09/01/17 21:00 10/01/17 20:59 09/03/17 09:09 100 MG Pneumococcal Polysaccharide Vaccine 1 ea PRN PRN N/A 09/01/17 11:00 10/01/17 10:59 Influenza Virus Vacc Triv Types A&B 1 ea PRN PRN N/A 09/01/17 11:00 10/01/17 10:59 Polyethylene (Miralax Powder Packet) 17 gm DAILY PO 09/03/17 09:00 5/20/18 08:59 09/03/17 09:11 17 GM Bisacodyl (Dulcolax Tab) 5 mg DAILY PRN PO 09/03/17 06:00 10/03/17 05:59 Bisacodyl (Dulcolax Supp) 10 mg DAILY PRN [place] 09/03/17 06:00 10/03/17 05:59 Promethazine HCl (Phenergan Tab) 12.5 mg Q6H PRN PO 09/01/17 13:15 10/01/17 13:14 Insulin Aspart (novoLOG ASPART) SLIDING SCALE If C... ACHS SC 09/01/17 17:15 10/01/17 00:00 09/03/17 13:48 2 UNITS Menthol ([place]) 1 graham PRN PRN GRAHAM 09/01/17 15:30 10/01/17 15:29 Insulin Glargine (Lantus Vial) 55 units BID SQ 09/02/17 21:00 09/29/17 20:59 09/03/17 09:16 55 UNITS Clopidogrel Bisulfate (plAVix TAB) 75 mg QAM PO 09/03/17 09:00 10/03/17 08:59 09/03/17 09:10 75 MG Senna (Senokot Tab) 17.2 mg QAM PO 09/04/17 09:00 10/04/17 08:59 Objective Vital Signs Date Time Temp Pulse Resp B/P (MAP) Pulse Ox O2 Delivery O2 Flow Rate FiO2 09/03/17 08:00 Room Air 09/03/17 07:27 36.9 69 18 143/73 (96) 94 Room Air 09/03/17 00:35 Room Air 09/02/17 22:52 37.1 71 16 146/81 (102) 91 Room Air 09/02/17 16:30 Room Air 09/02/17 15:31 36.9 67 17 132/72 (92) 91 Room Air Physical Exam General Appearance: no apparent distress Eyes: normal inspection, PERRL ENT: hearing grossly normal Neck: supple Respiratory/Chest: lungs clear, no respiratory distress, no accessory muscle use Cardiovascular: regular rate, rhythm, + systolic murmur Abdomen: normal bowel sounds, non tender, soft Extremities: no pedal edema, no calf tenderness, + pertinent finding (back brace on) Neurologic/Psychiatric: no motor/sensory deficits, alert, normal mood/affect, oriented x 3 Skin: normal color, warm/dry, no rash Laboratory Results Last 24 Hours Test 09/02/17 17:08 09/02/17 20:42 09/03/17 05:55 09/03/17 07:58 Bedside Glucose 148 mg/dl 125 mg/dl 72 mg/dl White Blood Count 10.80 K/uL Red Blood Count 4.45 M/uL Hemoglobin 13.2 g/dL Hematocrit 39.4 % Mean Corpuscular Volume 88.5 fL Mean Corpuscular Hemoglobin 29.7 pg Mean Corpuscular Hemoglobin Concent 33.5 g/dl RDW Standard Deviation 43.2 fL RDW Coefficient of Variation 13.3 % Platelet Count 155 K/uL Mean Platelet Volume 11.5 fL Sodium Level 139 mmol/L Potassium Level 3.7 mmol/L Chloride Level 105 mmol/L Carbon Dioxide Level 28 mmol/L Anion Gap 6.0 mmol/L Blood Urea Nitrogen 33 mg/dl Creatinine 1.60 mg/dl Est Creatinine Clear Calc Drug Dose 39.8 ml/min Estimated GFR () 47.1 Estimated GFR (Non- 40.7 BUN/Creatinine Ratio 20.5 Random Glucose 73 mg/dl Calcium Level 9.7 mg/dl Test 09/03/17 12:00 Bedside Glucose 134 mg/dl Assessment and Plan 77 y/o M who was admitted on 08/30 for T12 burst compression fx T12 burst compression fracture from mechanical fall s/p kyphoplasty by Dr. Brice on 09/01: - Admitted to med/surg - Leukocytosis, likely postop response- no s/s of infection- continue to follow CBC and monitor- RESOLVED - Check vitamin D level- WNL - Calcitonin spray - Orthopedics consulted, appreciate recommendations- surgical management, pain management, PT/OT, and DVT prophylaxis as per orthopedics - Orthotics consulted- TLSO brace provided - Follow postop CBC and PRP- STABLE Constipation: Bowel regimen ordered T2DM w/ hyperglycemia- hgbA1c 8.8.%- STABLE: - Continue Lantus 55 u BID - BSG ACHS and ISS - Diabetic education consultation- at discharge: continue Lantus, NovoLog 20 u w / meals, routine BSG checks, f/u w/ Endocrinology as scheduled HTN- STABLE: - Continue Metoprolol 50 mg daily, Losartan 100 mg daily - IV Hydralazine PRN TIA, CVA, CAD s/p CABG- STABLE: Continue ASA, Lipitor, Metoprolol, Plavix CKD stage III- baseline signwriter 1.5- STABLE Gout: Continue Allopurinol DVT prophylaxis: ASA + Plavix Code status: FULL, NO MECH VENT Dispo: Stable for discharge pending placement- PT/OT and CM following
[2017-09-03] MEDS: MAGNESIUM HYDROXIDE SUSP 30 ML UDC PO PRN (21:20)
[2017-09-03] MEDS ORDERED: NURSING VERBAL MED ORDER ONE (22:15)
[2017-09-03 23:35] VITALS: BP 152/80; PULSE 74; TEMP 37.2; O2SAT 95
[2017-09-04 07:19] VITALS: BP 152/80; PULSE 72; TEMP 36.9; O2SAT 94
[2017-09-04 07:43] LABS: CALCIUM 10.1 mg/dl (8.5-10.1); CREATININE 1.42 mg/dl (0.60-1.40); POTASSIUM 4.1 mmol/L (3.5-5.1)
[2017-09-04] MEDS: POLYETHYLENE (MIRALAX) 17 GM PACK PO SCH (08:33)
[2017-09-04] MEDS: CALCITONIN SALMON NA 200 IU/AC 3.7 ML BTL SCH (08:34)
[2017-09-04] MEDS: SENNA 8.6 MG TAB PO SCH (08:34)
[2017-09-04] MEDS: ASPIRIN 81 MG ECTAB PO SCH (08:34)
[2017-09-04] MEDS: OMEGA-3 (PURIFIED FISH OIL) 1 GM CAP PO SCH (08:34)
[2017-09-04] MEDS: DOCUSATE SODIUM 100 MG CAP PO SCH ×2 (08:35→22:02)
[2017-09-04] MEDS: ATORVASTATIN 40 MG TAB PO SCH (08:35)
[2017-09-04] MEDS: CEROVITE ADV FORMULA TAB PO SCH (08:35)
[2017-09-04] MEDS: LOSARTAN POTASSIUM 50 MG TAB PO SCH (08:35)
[2017-09-04] MEDS: CLOPIDOGREL BISULFATE 75 MG TAB PO SCH (08:35)
[2017-09-04] MEDS: METOPROLOL SUCC 50MG EXT REL TAB PO SCH (08:35)
[2017-09-04] MEDS: ALLOPURINOL 100 MG TAB PO SCH (08:35)
[2017-09-04] MEDS ORDERED: INSULIN GLARGINE SQ SCH (09:00)
[2017-09-04] MEDS: INSULIN GLARGINE SQ SCH (09:16)
[2017-09-04] MEDS: INSULIN ASPART 100 UNITS/ML 3 ML PEN SC SCH ×4 (09:16→22:03)
[2017-09-04] MEDS: OXYCODONE/ACETAMINOPHEN 5-325 TAB PO PRN ×2 (12:45→16:50)
--- NOTE | 2017-09-04 13:33 | Progress Note ---
Subjective Date of Service: Sep 04, 2017. Subjective Pt evaluation today including: conversation w/ patient, physical exam, lab review, review of inpatient medication list Pain: moderate back pain PO Intake: adequate Voiding: no voiding problems patient feeling okay, still with back pain, sitting up in chair discussed that [facility], he was very upset, wants to call insurance company reviewed labs, Cr stable at 1.4 glucose levels have been low, below 100 consistently confirmed he takes 55 units of Lantus BID, will decrease the dose, adjust Novolog scale Problem List Medical Problems: (1) Burst fracture of T12 vertebra Status: Acute (2) Fall Status: Acute (3) Radiculitis of right cervical region Status: Acute Review of Systems Constitutional: + weakness, + fatigue Musculoskeletal: + joint pain (mid back) All Other Systems: Reviewed and Negative Medications Current Inpatient Medications Medications (Trade) Dose Ordered Sig/Jeannette Route Start Time Stop Time Status Last Admin Dose Admin Acetaminophen (Tylenol Tab) 650 mg Q4H PRN PO 08/30/17 19:15 09/29/17 19:14 09/02/17 01:43 650 MG Magnesium Hydroxide (Milk Of Magnesia Susp) 30 ml Q6H PRN PO 08/30/17 19:15 09/29/17 19:14 09/03/17 21:20 30 ML Ondansetron HCl (Zofran Inj) 4 mg Q6H PRN IV 08/30/17 19:15 09/29/17 19:14 Glucose (Glucose 40% Gel) 15-30 GRAMS 15 GRAMS... UD PRN PO 08/30/17 19:15 09/29/17 19:14 Glucose (Glucose Chew Tab) 4-8 Tablets 4 Tabl... UD PRN PO 08/30/17 19:15 09/29/17 19:14 Dextrose (Dextrose 50% 50ML Syringe) 25-50ML OF 50% DW IV FOR... UD PRN IV 08/30/17 19:15 09/29/17 19:14 Glucagon (Glucagon Inj) 1 mg UD PRN SQ 08/30/17 19:15 09/29/17 19:14 Allopurinol (Zyloprim Tab) 100 mg DAILY PO 08/31/17 09:00 09/30/17 08:59 Future hold 09/04/17 08:35 100 MG Aspirin (Ecotrin Tab) 81 mg DAILY PO 08/31/17 09:00 09/30/17 08:59 Future hold 09/04/17 08:34 81 MG Atorvastatin Calcium (Lipitor Tab) 40 mg DAILY PO 08/31/17 09:00 09/30/17 08:59 Future hold 09/04/17 08:35 40 MG Fish Oil ([place]-3 (Purified Fish Oil) Cap) 1 gm DAILY PO 08/31/17 09:00 09/30/17 08:59 Future hold 09/04/17 08:34 1 GM Losartan Potassium (coZAAR TAB) 100 mg DAILY PO 08/31/17 09:00 09/30/17 08:59 Future hold 09/04/17 08:35 100 MG Metoprolol Succinate (Toprol Xl Tab) 50 mg DAILY PO 08/31/17 09:00 09/30/17 08:59 09/04/17 08:35 50 MG Multivitamins/ Minerals (Multivitamin W/ Minerals Tab) 1 tab DAILY PO 08/31/17 09:00 09/30/17 08:59 09/04/17 08:35 1 TAB Miscellaneous Information (Order Awaiting Action) 1 ea QS N/A 08/31/17 00:00 09/30/17 00:00 Calcitonin [place] (Fortical Nasal [place]) 1 spray DAILY NA 08/31/17 09:00 09/30/17 08:59 09/04/17 08:34 1 SPRAY Oxycodone/ Acetaminophen (Percocet 5-325mg Tab) 1 tab Q4H PRN PO 08/30/17 19:15 09/13/17 19:14 09/04/17 12:45 1 TAB Hydralazine HCl (HydrALAZINE INJ) 10 mg Q6H PRN IV. 08/31/17 10:45 09/30/17 10:44 Docusate Sodium (coLACE CAP) 100 mg BID PO 09/01/17 21:00 10/01/17 20:59 09/04/17 08:35 100 MG Pneumococcal Polysaccharide Vaccine 1 ea PRN PRN N/A 09/01/17 11:00 10/01/17 10:59 Influenza Virus Vacc Triv Types A&B 1 ea PRN PRN N/A 09/01/17 11:00 10/01/17 10:59 Polyethylene (Miralax Powder Packet) 17 gm DAILY PO 09/03/17 09:00 10/03/17 08:59 09/04/17 08:33 17 GM Bisacodyl (Dulcolax Tab) 5 mg DAILY PRN PO 09/03/17 06:00 10/03/17 05:59 Bisacodyl (Dulcolax Supp) 10 mg DAILY PRN [place] 09/03/17 06:00 10/03/17 05:59 Promethazine HCl (Phenergan Tab) 12.5 mg Q6H PRN PO 09/01/17 13:15 10/01/17 13:14 Insulin Aspart (novoLOG ASPART) SLIDING SCALE If C... ACHS SC 09/01/17 17:15 10/01/17 00:00 09/04/17 12:43 1 UNITS Menthol (Nice Graham) 1 graham PRN PRN GRAHAM 09/01/17 15:30 10/01/17 15:29 Clopidogrel Bisulfate (plAVix TAB) 75 mg QAM PO 09/03/17 09:00 10/03/17 08:59 09/04/17 08:35 75 MG Senna (Senokot Tab) 17.2 mg QAM PO 09/04/17 09:00 10/04/17 08:59 09/04/17 08:34 17.2 MG Insulin Glargine (Lantus Vial) 20 units BID SQ 09/04/17 09:00 09/29/17 20:59 09/04/17 09:16 20 UNITS Objective Vital Signs Date Time Temp Pulse Resp B/P (MAP) Pulse Ox O2 Delivery O2 Flow Rate FiO2 09/04/17 07:30 Room Air 09/04/17 07:19 36.9 72 18 152/80 (104) 94 Room Air 09/03/17 23:45 Room Air 09/03/17 23:35 37.2 74 18 152/80 (104) 95 Room Air 09/03/17 15:30 Room Air 09/03/17 15:11 36.9 71 18 153/70 (97) 95 Room Air Physical Exam General Appearance: WD/WN, no apparent distress Eyes: normal inspection, EOMI, sclerae normal ENT: normal ENT inspection, hearing grossly normal, pharynx normal Neck: supple, no adenopathy, no JVD, trachea midline Respiratory/Chest: chest non-tender, lungs clear, normal breath sounds, no respiratory distress, no accessory muscle use Cardiovascular: regular rate, rhythm, no edema, no gallop, no JVD, no murmur Abdomen: normal bowel sounds, non tender, soft, no organomegaly Extremities: normal inspection, no pedal edema, no calf tenderness, pelvis stable, + pertinent finding (mid back wedger, decreased ROM) 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, no motor/sensory deficits, alert, normal mood/affect, oriented x 3 Skin: normal color, warm/dry, no rash Lymphatic: no adenopathy Laboratory Results Last 24 Hours Test 09/03/17 17:05 09/03/17 21:11 09/03/17 21:32 09/03/17 23:44 Bedside Glucose 100 mg/dl 69 mg/dl 79 mg/dl 97 mg/dl Test 09/04/17 06:37 09/04/17 08:18 09/04/17 12:16 Sodium Level 137 mmol/L Potassium Level 4.1 mmol/L Chloride Level 104 mmol/L Carbon Dioxide Level 29 mmol/L Anion Gap 4.0 mmol/L Blood Urea Nitrogen 32 mg/dl Creatinine 1.42 mg/dl Est Creatinine Clear Calc Drug Dose 44.8 ml/min Estimated GFR () 54.4 Estimated GFR (Non- 47.0 BUN/Creatinine Ratio 22.2 Random Glucose 79 mg/dl Calcium Level 10.1 mg/dl Bedside Glucose 71 mg/dl 167 mg/dl Assessment and Plan 77 y/o M who was admitted on 08/30 for T12 burst compression fx T12 burst compression fracture from mechanical fall s/p kyphoplasty by Dr. 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
[2017-09-04 14:55] VITALS: BP 134/75; PULSE 63; TEMP 36.7; O2SAT 93
[2017-09-04] MEDS ORDERED: INSULIN GLARGINE SOLOSTAR 100 UNITS/ML 3 ML PEN SC SCH (21:30)
[2017-09-04] MEDS ORDERED: INSULIN GLARGINE SC SCH (21:30)
[2017-09-04] MEDS: MAGNESIUM HYDROXIDE SUSP 30 ML UDC PO PRN (22:06)
[2017-09-04 23:10] VITALS: BP 131/72; PULSE 75; TEMP 37.1; O2SAT 95
[2017-09-05] MEDS: OXYCODONE/ACETAMINOPHEN 5-325 TAB PO PRN ×4 (00:05→21:56)
[2017-09-05 06:30] VITALS: BP 135/72; PULSE 65; TEMP 36.8; O2SAT 96
[2017-09-05 07:09] LABS: CALCIUM 9.8 mg/dl (8.5-10.1); CREATININE 1.51 mg/dl (0.60-1.40); POTASSIUM 4.1 mmol/L (3.5-5.1)
[2017-09-05] MEDS: ATORVASTATIN 40 MG TAB PO SCH (08:12)
[2017-09-05] MEDS: CLOPIDOGREL BISULFATE 75 MG TAB PO SCH (08:12)
[2017-09-05] MEDS: ALLOPURINOL 100 MG TAB PO SCH (08:12)
[2017-09-05] MEDS: DOCUSATE SODIUM 100 MG CAP PO SCH ×2 (08:13→21:55)
[2017-09-05] MEDS: METOPROLOL SUCC 50MG EXT REL TAB PO SCH (08:13)
[2017-09-05] MEDS: LOSARTAN POTASSIUM 50 MG TAB PO SCH (08:13)
[2017-09-05] MEDS: CEROVITE ADV FORMULA TAB PO SCH (08:13)
[2017-09-05] MEDS: OMEGA-3 (PURIFIED FISH OIL) 1 GM CAP PO SCH (08:14)
[2017-09-05] MEDS: ASPIRIN 81 MG ECTAB PO SCH (08:14)
[2017-09-05] MEDS: CALCITONIN SALMON NA 200 IU/AC 3.7 ML BTL SCH (08:15)
[2017-09-05] MEDS: POLYETHYLENE (MIRALAX) 17 GM PACK PO SCH (08:15)
[2017-09-05] MEDS: INSULIN ASPART 100 UNITS/ML 3 ML PEN SC SCH ×4 (09:27→21:55)
[2017-09-05] MEDS: INSULIN GLARGINE SQ SCH ×2 (09:29→21:54)
[2017-09-05] MEDS: SENNA 8.6 MG TAB PO SCH (09:30)
[2017-09-05 16:55] VITALS: BP 147/74; PULSE 64; TEMP 37.3; O2SAT 94
--- NOTE | 2017-09-05 22:20 | Progress Note ---
Subjective Date of Service: Sep 05, 2017. Subjective Pt evaluation today including: conversation w/ patient, physical exam, lab review, review of inpatient medication list Pain: controlled PO Intake: adequate Voiding: no voiding problems patient doing well, ambulating moved bowels today for first time since surgery urinating RN concerned because patient stated he could not feel that he had a BM or urinated, will monitor reviewed labs, sugars stable on lower dose of Lantus Problem List Medical Problems: (1) Burst fracture of T12 vertebra Status: Acute (2) Fall Status: Acute (3) Radiculitis of right cervical region Status: Acute Review of Systems Constitutional: + weakness, + fatigue Musculoskeletal: + joint pain (mid back, moderate) Neurologic: + weakness, + balance problems All Other Systems: Reviewed and Negative Medications Current Inpatient Medications Medications (Trade) Dose Ordered Sig/Jeannette Route Start Time Stop Time Status Last Admin Dose Admin Acetaminophen (Tylenol Tab) 650 mg Q4H PRN PO 08/30/17 19:15 09/29/17 19:14 09/02/17 01:43 650 MG Magnesium Hydroxide (Milk Of Magnesia Susp) 30 ml Q6H PRN PO 08/30/17 19:15 09/29/17 19:14 09/04/17 22:06 30 ML Ondansetron HCl (Zofran Inj) 4 mg Q6H PRN IV 08/30/17 19:15 09/29/17 19:14 Glucose (Glucose 40% Gel) 15-30 GRAMS 15 GRAMS... UD PRN PO 08/30/17 19:15 09/29/17 19:14 Glucose (Glucose Chew Tab) 4-8 Tablets 4 Tabl... UD PRN PO 08/30/17 19:15 09/29/17 19:14 Dextrose (Dextrose 50% 50ML Syringe) 25-50ML OF 50% DW IV FOR... UD PRN IV 08/30/17 19:15 09/29/17 19:14 Glucagon (Glucagon Inj) 1 mg UD PRN SQ 08/30/17 19:15 09/29/17 19:14 Allopurinol (Zyloprim Tab) 100 mg DAILY PO 08/31/17 09:00 09/30/17 08:59 Future hold 09/05/17 08:12 100 MG Aspirin (Ecotrin Tab) 81 mg DAILY PO 08/31/17 09:00 5/17/18 08:59 Future hold 09/05/17 08:14 81 MG Atorvastatin Calcium (Lipitor Tab) 40 mg DAILY PO 08/31/17 09:00 09/30/17 08:59 Future hold 09/05/17 08:12 40 MG Fish Oil ([place]-3 (Purified Fish Oil) Cap) 1 gm DAILY PO 08/31/17 09:00 09/30/17 08:59 Future hold 09/05/17 08:14 1 GM Losartan Potassium (coZAAR TAB) 100 mg DAILY PO 08/31/17 09:00 09/30/17 08:59 Future hold 09/05/17 08:13 100 MG Metoprolol Succinate (Toprol Xl Tab) 50 mg DAILY PO 08/31/17 09:00 09/30/17 08:59 09/05/17 08:13 50 MG Multivitamins/ Minerals (Multivitamin W/ Minerals Tab) 1 tab DAILY PO 08/31/17 09:00 09/30/17 08:59 09/05/17 08:13 1 TAB Miscellaneous Information (Order Awaiting Action) 1 ea QS N/A 08/31/17 00:00 09/30/17 00:00 Calcitonin [place] (Fortical Nasal [place]) 1 spray DAILY NA 08/31/17 09:00 09/30/17 08:59 09/05/17 08:15 1 SPRAY Oxycodone/ Acetaminophen (Percocet 5-325mg Tab) 1 tab Q4H PRN PO 08/30/17 19:15 09/13/17 19:14 09/05/17 21:56 1 TAB Hydralazine HCl (HydrALAZINE INJ) 10 mg Q6H PRN IV. 08/31/17 10:45 09/30/17 10:44 Docusate Sodium (coLACE CAP) 100 mg BID PO 09/01/17 21:00 10/01/17 20:59 09/05/17 08:13 100 MG Pneumococcal Polysaccharide Vaccine 1 ea PRN PRN N/A 09/01/17 11:00 10/01/17 10:59 Influenza Virus Vacc Triv Types A&B 1 ea PRN PRN N/A 09/01/17 11:00 10/01/17 10:59 Polyethylene (Miralax Powder Packet) 17 gm DAILY PO 09/03/17 09:00 10/03/17 08:59 09/05/17 08:15 17 GM Bisacodyl (Dulcolax Tab) 5 mg DAILY PRN PO 09/03/17 06:00 10/03/17 05:59 Bisacodyl (Dulcolax Supp) 10 mg DAILY PRN [place] 09/03/17 06:00 10/03/17 05:59 09/05/17 09:29 10 MG Promethazine HCl (Phenergan Tab) 12.5 mg Q6H PRN PO 09/01/17 13:15 10/01/17 13:14 Insulin Aspart (novoLOG ASPART) SLIDING SCALE If C... ACHS SC 09/01/17 17:15 10/01/17 00:00 09/05/17 18:48 2 UNITS Menthol (Nice Graham) 1 graham PRN PRN GRAHAM 09/01/17 15:30 10/01/17 15:29 Clopidogrel Bisulfate (plAVix TAB) 75 mg QAM PO 09/03/17 09:00 10/03/17 08:59 09/05/17 08:12 75 MG Senna (Senokot Tab) 17.2 mg QAM PO 09/04/17 09:00 10/04/17 08:59 09/05/17 09:30 17.2 MG Insulin Glargine (Lantus Vial) 20 units BID SQ 09/04/17 09:00 09/29/17 20:59 Future hold 09/05/17 21:54 20 UNITS Objective Vital Signs Date Time Temp Pulse Resp B/P (MAP) Pulse Ox O2 Delivery O2 Flow Rate FiO2 09/05/17 16:55 37.3 64 17 147/74 (98) 94 Room Air 09/05/17 15:40 Room Air 09/05/17 08:00 Room Air 09/05/17 06:30 36.8 65 16 135/72 (93) 96 Room Air 09/04/17 23:30 Room Air 09/04/17 23:10 37.1 75 18 131/72 (91) 95 Room Air Physical Exam General Appearance: WD/WN, no apparent distress Eyes: normal inspection, EOMI, sclerae normal Neck: supple, no adenopathy, no JVD, trachea midline Respiratory/Chest: chest non-tender, lungs clear, normal breath sounds, no respiratory distress, no accessory muscle use Cardiovascular: regular rate, rhythm, no edema, no gallop, no JVD, no murmur Abdomen: normal bowel sounds, non tender, soft, no organomegaly Extremities: no pedal edema, no calf tenderness, normal capillary refill, pelvis stable, + pertinent finding (mid wood heel back liner, decreased ROM) 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, no motor/sensory deficits, alert, normal mood/affect, oriented x 3 Skin: normal color, warm/dry, no rash Laboratory Results Last 24 Hours Test 09/04/17 23:59 09/05/17 05:40 09/05/17 08:04 09/05/17 11:59 Bedside Glucose 164 mg/dl 194 mg/dl 164 mg/dl Sodium Level 135 mmol/L Potassium Level 4.1 mmol/L Chloride Level 101 mmol/L Carbon Dioxide Level 27 mmol/L Anion Gap 7.0 mmol/L Blood Urea Nitrogen 34 mg/dl Creatinine 1.51 mg/dl Est Creatinine Clear Calc Drug Dose 42.2 ml/min Estimated GFR () 50.5 Estimated GFR (Non- 43.6 BUN/Creatinine Ratio 22.6 Random Glucose 225 mg/dl Calcium Level 9.8 mg/dl Test 09/05/17 17:16 09/05/17 21:34 Bedside Glucose 188 mg/dl 119 mg/dl Assessment and Plan 77 y/o M who was admitted on 08/30 for T12 burst compression fx T12 burst compression fracture from mechanical fall s/p kyphoplasty by Dr. Brice on 09/01: TLSO brace while upright and walking Calcitonin spray Normal Vitamin D plan for rehab, was denied, awaiting peer to peer, patient may want to appeal discussed with him today that he may need to consider SNF back up, he refuses , says he will go home Constipation: Bowel regimen ordered, moved bowels today T2DM - hgbA1c 8.8.% low sugars earlier in admission on Lantus 55 units will decrease Lantus to 20 units BID adjust Novolog to correction factor of 40 and no carb coverage sugars have been stable would recommend discharging on lower dose of Lantus than 55 BID HTN- STABLE: - Continue Metoprolol 50 mg daily, Losartan 100 mg daily TIA, CVA, CAD s/p CABG- STABLE: Continue ASA, Lipitor, Metoprolol, Plavix CKD stage III- stable Gout: Continue Allopurinol DVT prophylaxis: ASA + Plavix Code status: FULL, NO MECH VENT Dispo: Stable for discharge pending placement- denied rehab, awaiting peer to peer tomorrow
[2017-09-05 23:02] VITALS: BP 137/87; PULSE 78; TEMP 37.3; O2SAT 93
[2017-09-06 06:17] LABS: CALCIUM 10.2 mg/dl (8.5-10.1); CREATININE 1.45 mg/dl (0.60-1.40); POTASSIUM 3.8 mmol/L (3.5-5.1)
[2017-09-06] MEDS: OXYCODONE/ACETAMINOPHEN 5-325 TAB PO PRN ×3 (06:17→20:46)
[2017-09-06 07:12] VITALS: BP 162/75; PULSE 71; TEMP 36.6; O2SAT 95
[2017-09-06] MEDS: INSULIN ASPART 100 UNITS/ML 3 ML PEN SC SCH ×4 (08:00→20:53)
[2017-09-06] MEDS: ATORVASTATIN 40 MG TAB PO SCH (08:54)
[2017-09-06] MEDS: LOSARTAN POTASSIUM 50 MG TAB PO SCH (08:54)
[2017-09-06] MEDS: ASPIRIN 81 MG ECTAB PO SCH (08:54)
[2017-09-06] MEDS: SENNA 8.6 MG TAB PO SCH (08:54)
[2017-09-06] MEDS: DOCUSATE SODIUM 100 MG CAP PO SCH ×2 (08:54→20:46)
[2017-09-06] MEDS: CEROVITE ADV FORMULA TAB PO SCH (08:55)
[2017-09-06] MEDS: OMEGA-3 (PURIFIED FISH OIL) 1 GM CAP PO SCH (08:55)
[2017-09-06] MEDS: ALLOPURINOL 100 MG TAB PO SCH (08:55)
[2017-09-06] MEDS: METOPROLOL SUCC 50MG EXT REL TAB PO SCH (08:55)
[2017-09-06] MEDS: POLYETHYLENE (MIRALAX) 17 GM PACK PO SCH (08:55)
[2017-09-06] MEDS: CLOPIDOGREL BISULFATE 75 MG TAB PO SCH (08:55)
[2017-09-06] MEDS: CALCITONIN SALMON NA 200 IU/AC 3.7 ML BTL SCH (08:56)
[2017-09-06] MEDS: INSULIN GLARGINE SQ SCH ×2 (08:58→20:54)
--- NOTE | 2017-09-06 12:57 | Hospitalist Progress Note ---
Hospitalist Progress Note Date of Service Sep 06, 2017. Subjective Pt evaluation today including: conversation w/ patient, conversation w/ family (daughter and son on phone ), physical exam, lab review, review of inpatient medication list Voiding: no voiding problems Patient resting in bed. Feeling well. Back pain well controlled. Still pretty painful with movement. Eating and drinking OK. +BMs. +weakness. Long discussion w/ patient about discharge plans. Is adamant that if not accepted to [facility] then he is going home. Denied [facility]. Discussed would have to leave AMA if wanted to go home. Discussed w/ daughter and son over phone. Both in agreement he cannot return home at this time and needs rehab. Daughter to call and talk to patient. Patient denies any fever, chills, sweats, lightheadedness, dizziness, vision changes, CP, palpitations, edema, SOB, wheezing, cough, abdominal pain, nausea, vomiting, diarrhea, urinary symptoms, melena, numbness/tingling, anxiety/ depression, active bleeding, or new skin discoloration/changes. Medications Current Inpatient Medications Medications (Trade) Dose Ordered Sig/Jeannette Route Start Time Stop Time Status Last Admin Dose Admin Acetaminophen (Tylenol Tab) 650 mg Q4H PRN PO 08/30/17 19:15 09/29/17 19:14 09/02/17 01:43 650 MG Magnesium Hydroxide (Milk Of Magnesia Susp) 30 ml Q6H PRN PO 08/30/17 19:15 09/29/17 19:14 09/04/17 22:06 30 ML Ondansetron HCl (Zofran Inj) 4 mg Q6H PRN IV 08/30/17 19:15 09/29/17 19:14 Glucose (Glucose 40% Gel) 15-30 GRAMS 15 GRAMS... UD PRN PO 08/30/17 19:15 09/29/17 19:14 Glucose (Glucose Chew Tab) 4-8 Tablets 4 Tabl... UD PRN PO 08/30/17 19:15 09/29/17 19:14 Dextrose (Dextrose 50% 50ML Syringe) 25-50ML OF 50% DW IV FOR... UD PRN IV 08/30/17 19:15 09/29/17 19:14 Glucagon (Glucagon Inj) 1 mg UD PRN SQ 08/30/17 19:15 09/29/17 19:14 Allopurinol (Zyloprim Tab) 100 mg DAILY PO 08/31/17 09:00 09/30/17 08:59 Future hold 09/06/17 08:55 100 MG Aspirin (Ecotrin Tab) 81 mg DAILY PO 08/31/17 09:00 09/30/17 08:59 Future hold 09/06/17 08:54 81 MG Atorvastatin Calcium (Lipitor Tab) 40 mg DAILY PO 08/31/17 09:00 09/30/17 08:59 Future hold 09/06/17 08:54 40 MG Fish Oil ([place]-3 (Purified Fish Oil) Cap) 1 gm DAILY PO 08/31/17 09:00 09/30/17 08:59 Future hold 09/06/17 08:55 1 GM Losartan Potassium (coZAAR TAB) 100 mg DAILY PO 08/31/17 09:00 09/30/17 08:59 Future hold 09/06/17 08:54 100 MG Metoprolol Succinate (Toprol Xl Tab) 50 mg DAILY PO 08/31/17 09:00 09/30/17 08:59 09/06/17 08:55 50 MG Multivitamins/ Minerals (Multivitamin W/ Minerals Tab) 1 tab DAILY PO 08/31/17 09:00 09/30/17 08:59 09/06/17 08:55 1 TAB Miscellaneous Information (Order Awaiting Action) 1 ea QS N/A 08/31/17 00:00 09/30/17 00:00 Calcitonin [place] (Fortical Nasal [place]) 1 spray DAILY NA 08/31/17 09:00 09/30/17 08:59 09/06/17 08:56 1 SPRAY Oxycodone/ Acetaminophen (Percocet 5-325mg Tab) 1 tab Q4H PRN PO 08/30/17 19:15 09/13/17 19:14 09/06/17 06:17 1 TAB Hydralazine HCl (HydrALAZINE INJ) 10 mg Q6H PRN IV. 08/31/17 10:45 09/30/17 10:44 Docusate Sodium (coLACE CAP) 100 mg BID PO 09/01/17 21:00 10/01/17 20:59 09/06/17 08:54 100 MG Pneumococcal Polysaccharide Vaccine 1 ea PRN PRN N/A 09/01/17 11:00 10/01/17 10:59 Influenza Virus Vacc Triv Types A&B 1 ea PRN PRN N/A 09/01/17 11:00 10/01/17 10:59 Polyethylene (Miralax Powder Packet) 17 gm DAILY PO 09/03/17 09:00 10/03/17 08:59 09/06/17 08:55 17 GM Bisacodyl (Dulcolax Tab) 5 mg DAILY PRN PO 09/03/17 06:00 10/03/17 05:59 Bisacodyl (Dulcolax Supp) 10 mg DAILY PRN [place] 09/03/17 06:00 10/03/17 05:59 09/05/17 09:29 10 MG Promethazine HCl (Phenergan Tab) 12.5 mg Q6H PRN PO 09/01/17 13:15 10/01/17 13:14 Insulin Aspart (novoLOG ASPART) SLIDING SCALE If C... ACHS SC 09/01/17 17:15 10/01/17 00:00 09/05/17 18:48 2 UNITS Menthol ([place]) 1 graham PRN PRN GRAHAM 09/01/17 15:30 10/01/17 15:29 Clopidogrel Bisulfate (plAVix TAB) 75 mg QAM PO 09/03/17 09:00 10/03/17 08:59 09/06/17 08:55 75 MG Senna (Senokot Tab) 17.2 mg QAM PO 09/04/17 09:00 10/04/17 08:59 09/06/17 08:54 17.2 MG Insulin Glargine (Lantus Vial) 20 units BID SQ 09/04/17 09:00 09/29/17 20:59 Future hold 09/06/17 08:58 20 UNITS Objective Vital Signs Date Time Temp Pulse Resp B/P (MAP) Pulse Ox O2 Delivery O2 Flow Rate FiO2 09/06/17 07:33 Room Air 09/06/17 07:12 36.6 71 16 162/75 (104) 95 Room Air 09/05/17 23:50 Room Air 09/05/17 23:02 37.3 78 16 137/87 (104) 93 Room Air 09/05/17 16:55 37.3 64 17 147/74 (98) 94 Room Air 09/05/17 15:40 Room Air Physical Exam General Appearance: no apparent distress Eyes: normal inspection, PERRL ENT: hearing grossly normal Neck: supple Respiratory/Chest: lungs clear, no respiratory distress, no accessory muscle use Cardiovascular: regular rate, rhythm, + systolic murmur Abdomen: normal bowel sounds, non tender, soft Extremities: no pedal edema, no calf tenderness Neurologic/Psychiatric: alert, normal mood/affect, oriented x 3 Skin: normal color, warm/dry, no rash Laboratory Results Last 24 Hours Test 09/05/17 17:16 09/05/17 21:34 09/06/17 05:22 09/06/17 08:16 Bedside Glucose 188 mg/dl 119 mg/dl 131 mg/dl Sodium Level 136 mmol/L Potassium Level 3.8 mmol/L Chloride Level 101 mmol/L Carbon Dioxide Level 31 mmol/L Anion Gap 4.0 mmol/L Blood Urea Nitrogen 29 mg/dl Creatinine 1.45 mg/dl Est Creatinine Clear Calc Drug Dose 43.9 ml/min Estimated GFR () 53.1 Estimated GFR (Non- 45.8 BUN/Creatinine Ratio 19.9 Random Glucose 171 mg/dl Calcium Level 10.2 mg/dl Test 09/06/17 12:08 Bedside Glucose 169 mg/dl Assessment and Plan 77 y/o M who was admitted on 08/30 for T12 burst compression fx T12 burst compression fracture from mechanical fall s/p kyphoplasty by Dr. Brice on 09/01: - Admitted to med/surg - Leukocytosis, likely postop response- no s/s of infection- continue to follow CBC and monitor- RESOLVED - Check vitamin D level- WNL - Calcitonin spray - Orthopedics consulted, appreciate recommendations- surgical management, pain management, PT/OT, and DVT prophylaxis as per orthopedics - Orthotics consulted- TLSO brace provided - Follow postop CBC and PRP- STABLE Constipation- RESOLVED: Bowel regimen ordered T2DM w/ hyperglycemia- hgbA1c 8.8.%- STABLE: - Lantus 55 u BID decreased to 20 u BID- will continue to follow and adjust PRN - BSG ACHS and ISS - Diabetic education consultation- at discharge: continue Lantus, NovoLog 20 u w / meals, routine BSG checks, f/u w/ Endocrinology as scheduled HTN- STABLE: - Continue Metoprolol 50 mg daily, Losartan 100 mg daily - IV Hydralazine PRN TIA, CVA, CAD s/p CABG- STABLE: Continue ASA, Lipitor, Metoprolol, Plavix 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
[2017-09-06 15:30] VITALS: BP 127/75; PULSE 64; TEMP 37; O2SAT 94
[2017-09-06 23:10] VITALS: BP 133/74; PULSE 65; TEMP 36.9; O2SAT 94
[2017-09-07] MEDS: OXYCODONE/ACETAMINOPHEN 5-325 TAB PO PRN (03:01)
[2017-09-07 07:03] VITALS: BP 137/76; PULSE 65; TEMP 36.6; O2SAT 96
[2017-09-07] MEDS: INSULIN ASPART 100 UNITS/ML 3 ML PEN SC SCH ×2 (08:00→12:42)
[2017-09-07] MEDS: DOCUSATE SODIUM 100 MG CAP PO SCH (08:32)
[2017-09-07] MEDS: ATORVASTATIN 40 MG TAB PO SCH (08:33)
[2017-09-07] MEDS: CLOPIDOGREL BISULFATE 75 MG TAB PO SCH (08:33)
[2017-09-07] MEDS: ASPIRIN 81 MG ECTAB PO SCH (08:33)
[2017-09-07] MEDS: ALLOPURINOL 100 MG TAB PO SCH (08:33)
[2017-09-07] MEDS: METOPROLOL SUCC 50MG EXT REL TAB PO SCH (08:33)
[2017-09-07] MEDS: SENNA 8.6 MG TAB PO SCH (08:33)
[2017-09-07] MEDS: CALCITONIN SALMON NA 200 IU/AC 3.7 ML BTL SCH (08:34)
[2017-09-07] MEDS: POLYETHYLENE (MIRALAX) 17 GM PACK PO SCH (08:34)
[2017-09-07] MEDS: LOSARTAN POTASSIUM 50 MG TAB PO SCH (08:34)
[2017-09-07] MEDS: CEROVITE ADV FORMULA TAB PO SCH (08:34)
[2017-09-07] MEDS: OMEGA-3 (PURIFIED FISH OIL) 1 GM CAP PO SCH (08:37)
[2017-09-07] MEDS: INSULIN GLARGINE SQ SCH (08:37)
[2017-09-07] MEDS ORDERED: INSDGIPEN SC (13:07)
[2017-09-07] MEDS ORDERED: OXYC-57 PO (13:07)
[2017-09-07] MEDS ORDERED: MCLIN (13:07)
--- NOTE | 2017-09-07 13:14 | Discharge Instructions ---
Discharge Instructions Date of Service Sep 07, 2017. Admission Reason for Admission: Compression Fracture Discharge Discharge Diagnosis / Problem: Compression fracture Discharge Goals Goal(s): Decrease discomfort, Improve function, Increase independence, Improve disease control, Learn about illness, Diagnostic testing, Therapeutic intervention, Prevent Disease Progression Activity Recommendations Activity Level: Assistance Required Therapies: Physical Therapy, Occupational Therapy . Additional Information Patient informed of condition: Yes Advance Directives: No DNR: No Level of Care: Acute Rehab Communicable Disease: No Prognosis: Improving Farias Catheter: No Instructions / Follow-Up Instructions / Follow-Up T12 burst compression fracture from mechanical fall s/p kyphoplasty by Dr. Brice on 09/01: - Vitamin D level- WNL - Calcitonin spray - Percocet PRN for pain control - Orthopedics consulted, appreciate recommendations- f/u outpatient within 2 weeks - Orthotics consulted- TLSO brace provided Constipation- RESOLVED: Continue PRN bowel regimen T2DM w/ hyperglycemia- hgbA1c 8.8.%- STABLE: - Lantus 55 u BID decreased to 20 u BID- will increase to 25 u BID at discharge - [facility] to continue to monitor need for increase - BSG ACHS and ISS - Diabetic education consultation- -- Continue Lantus -- Consider NovoLog 20 u w/ meals once discharge from [facility] -- Routine BSG checks -- f/u w/ Endocrinology as scheduled HTN- STABLE: Continue Metoprolol 50 mg daily, Losartan 100 mg daily TIA, CVA, CAD s/p CABG- STABLE: Continue ASA, Lipitor, Metoprolol, Plavix 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 Brice within 2 weeks Follow-up with Endocrinology as scheduled on 10/25 Please follow-up/keep all of your subspecialty appointments Current Hospital Diet Patient's current hospital diet: Diabetes Type 2 Diet Discharge Diet Recommended Diet: Diabetes Type 2 Diet Procedures Procedures Performed: 1. T12 kyphoplasty. #2 T12 biopsy Pending Studies Studies pending at discharge: no Physician Orders On Transfer Special Precautions: Fall precautions Dressing Changes: Routine incision site care IV Therapy: None Vital Signs: Routine POLST Discussion: without POLST completion Laboratory Results Hemoglobin A1c Test 08/31/17 04:35 Range/Units Estimated Average Glucose 206 mg/dl Hemoglobin A1c 8.8 H 4.5-5.6 % Lipid Panel Test 07/14/17 13:54 Range/Units Triglycerides Level 439 H 0-150 mg/dl Cholesterol Level 161 0-200 mg/dl HDL Cholesterol 29 mg/dl Cholesterol/HDL Ratio 5.6 LDL Cholesterol, Calculated mg/dl Medical Emergencies . Who to Call and When: Medical Emergencies: If at any time you feel your situation is an emergency, please call 911 immediately. . Non-Emergent Contact Non-Emergency issues call your: Primary Care Provider, Specialist Call Non-Emergent contact if: you have a fever, your pain is not controlled, your pain is worsening, your pain is unusual for you, your pain is concerning you, wound has increased drainage, wound has increased redness, wound has increased pain, you have any medication questions . . "Provider Documentation" section prepared by Griselda Payton. . Core Measure Problem Core Measures: None
--- NOTE | 2017-09-07 13:23 | Discharge Summary ---
Discharge Summary Date of Service Sep 07, 2017. Discharge Summary Admission Date: Aug 30, 2017 at 19:06 Discharge Date: Sep 07, 2017 Discharge Disposition: Rehab Principal Diagnosis: Compression fracture Problems/Secondary Diagnoses: T12 burst compression fracture from mechanical fall s/p kyphoplasty by Dr. 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 FINDINGS: Approximately 30% anterior endplate compression deformity of the T12 vertebral body redemonstrated with postprocedural changes of interval vertebroplasty. Cement material appears to be localized within the T12 vertebral body without extension into adjacent structures. Alignment is satisfactory. Atherosclerosis of the aorta. IMPRESSION: Status post vertebroplasty at T12 with satisfactory alignment. The above report was generated using voice recognition software. It may contain grammatical, syntax or spelling errors. Electronically signed by: Seng Royal M.D. 09/01/2017 11:17 AM Dictated Date/Time: 09/01/2017 11:15 AM The status of this report is Signed. Draft = Not yet reviewed or approved by Radiologist. Signed = Reviewed and approved by Radiologist CHEST ONE VIEW PORTABLE CLINICAL HISTORY: 77 years-old Male presenting with EVALUATE ALTERED MENTAL STATUS/WEAKNESS. TECHNIQUE: Portable upright AP view of the chest was obtained. COMPARISON: 09/09/2013. FINDINGS: Median sternotomy wires and mediastinal surgical clips unchanged. Breakage of the superiormost wire unchanged. Atherosclerosis of the aortic arch. Cardiac silhouette top normal in size. Mildly low lung volumes with hypoventilatory changes. Bandlike opacity at the right lung base. No large effusion or pneumothorax. Mild prominence of pulmonary vasculature. Degenerative changes of the thoracic spine. Upper abdomen normal. IMPRESSION: 1. Low lung volumes with hypoventilatory changes including right basilar atelectasis. No convincing evidence of acute cardiopulmonary disease. Electronically signed by: Jossue Damon M.D. 08/30/2017 5:50 PM Dictated Date/Time: 08/30/2017 5:49 PM The status of this report is Signed. Draft = Not yet reviewed or approved by Radiologist. Signed = Reviewed and approved by Radiologist LUMBAR SPINE WITHOUT, THORACIC SPINE WITHOUT HISTORY: 77 years-old Male fsall acute back pain status post fall COMPARISON: CT 03/18/2008, CTA of the chest 10/24/2008. TECHNIQUE: Multiple axial CT images of the thoracic and lumbar spine were obtained without IV contrast. Images were reviewed in the coronal and sagittal planes. A dose lowering technique was used consistent with the principals of ALARA. FINDINGS: THORACIC: There is an acute burst fracture involving the T12 vertebral body with 30% anterior endplate vertebral body height loss. Fracture of the posterior cortex is also noted with 5 mm retropulsion. Bones are mildly demineralized. Findings cause mild central canal narrowing posterior to T12 vertebral body. Neuroforamen at T11-T12 and T12-L1 appear patent. No large epidural or paraspinal hematoma identified. The remaining vertebral bodies are well-maintained without additional acute fracture or subluxation. Multilevel bridging osteophytosis with mild multilevel intervertebral disc space narrowing. Mostly moderate multilevel facet arthrosis. The imaged posterior elements appear intact. No high-grade central canal or foraminal narrowing identified within the thoracic spine. The imaged ribs appear intact. Extensive calcification of the thoracic aorta. Coronary arterial disease with cardiomegaly. Subsegmental bibasilar atelectasis. 6 mm nodule of the right upper lobe, image 107 series 3 is unchanged from comparison study compatible with benign etiology. LUMBAR: No acute fracture or subluxation identified. Moderate facet arthrosis of the mid and lower lumbar spine with mild multilevel endplate spurring. Posterior elements appear intact. Transverse processes appear intact. No evidence of sacral or iliac fracture. Moderate degenerative changes about the bilateral SI joints. Posterior disc bulge at L3-L4 causes mild central canal and mild bilateral foraminal narrowing. Circumferential annular disc bulging seen most prominently at L4-L5 resulting in moderate central canal and mild bilateral foraminal narrowing. Moderate posterior disc bulge at L5-S1 flattens the ventral thecal sac without significant central canal or foraminal narrowing identified. Extensive calcification of the aorta and branch vessels without aneurysm identified. No bulky adenopathy or acute intra-abdominal abnormality identified. Mild nonspecific perinephric stranding. IMPRESSION: 1. Acute burst fracture involves the T12 vertebral body with 30% anterior endplate vertebral body height loss. 5 mm retropulsion causes mild central canal narrowing at this level. No high-grade central canal or foraminal narrowing. 2. No acute fracture or subluxation of the lumbar spine. 3. Multilevel endplate spurring and facet arthrosis as above. The above report was generated using voice recognition software. It may contain grammatical, syntax or spelling errors. Electronically signed by: Seng Royal M.D. 08/30/2017 6:20 PM Dictated Date/Time: 08/30/2017 6:05 PM The status of this report is Signed. Draft = Not yet reviewed or approved by Radiologist. Signed = Reviewed and approved by Radiologist LUMBAR SPINE WITHOUT, THORACIC SPINE WITHOUT HISTORY: 77 years-old Male fsall acute back pain status post fall COMPARISON: CT 03/18/2008, CTA of the chest 10/24/2008. TECHNIQUE: Multiple axial CT images of the thoracic and lumbar spine were obtained without IV contrast. Images were reviewed in the coronal and sagittal planes. A dose lowering technique was used consistent with the principals of ALARA. FINDINGS: THORACIC: There is an acute burst fracture involving the T12 vertebral body with 30% anterior endplate vertebral body height loss. Fracture of the posterior cortex is also noted with 5 mm retropulsion. Bones are mildly demineralized. Findings cause mild central canal narrowing posterior to T12 vertebral body. Neuroforamen at T11-T12 and T12-L1 appear patent. No large epidural or paraspinal hematoma identified. The remaining vertebral bodies are well-maintained without additional acute fracture or subluxation. Multilevel bridging osteophytosis with mild multilevel intervertebral disc space narrowing. Mostly moderate multilevel facet arthrosis. The imaged posterior elements appear intact. No high-grade central canal or foraminal narrowing identified within the thoracic spine. The imaged ribs appear intact. Extensive calcification of the thoracic aorta. Coronary arterial disease with cardiomegaly. Subsegmental bibasilar atelectasis. 6 mm nodule of the right upper lobe, image 107 series 3 is unchanged from comparison study compatible with benign etiology. LUMBAR: No acute fracture or subluxation identified. Moderate facet arthrosis of the mid and lower lumbar spine with mild multilevel endplate spurring. Posterior elements appear intact. Transverse processes appear intact. No evidence of sacral or iliac fracture. Moderate degenerative changes about the bilateral SI joints. Posterior disc bulge at L3-L4 causes mild central canal and mild bilateral foraminal narrowing. Circumferential annular disc bulging seen most prominently at L4-L5 resulting in moderate central canal and mild bilateral foraminal narrowing. Moderate posterior disc bulge at L5-S1 flattens the ventral thecal sac without significant central canal or foraminal narrowing identified. Extensive calcification of the aorta and branch vessels without aneurysm identified. No bulky adenopathy or acute intra-abdominal abnormality identified. Mild nonspecific perinephric stranding. IMPRESSION: 1. Acute burst fracture involves the T12 vertebral body with 30% anterior endplate vertebral body height loss. 5 mm retropulsion causes mild central canal narrowing at this level. No high-grade central canal or foraminal narrowing. 2. No acute fracture or subluxation of the lumbar spine. 3. Multilevel endplate spurring and facet arthrosis as above. The above report was generated using voice recognition software. It may contain grammatical, syntax or spelling errors. Electronically signed by: Seng Royal M.D. 08/30/2017 6:20 PM Dictated Date/Time: 08/30/2017 6:05 PM The status of this report is Signed. Draft = Not yet reviewed or approved by Radiologist. Signed = Reviewed and approved by Radiologist. Consultations: Orthopedics- Dr. Brice Medication Reconciliation New Medications: Calcitonin [place] (Calcitonin-[place]) 30 [place]/3.7 Ml Soln 1 SPRAY NA DAILY for 30 Days Oxycodone/Acetaminophen 5MG/325MG (Percocet 5MG/325MG) Tab 1 TAB PO Q4H PRN for Pain for 3 Days, #18 TAB PAIN Changed Medications: Insulin Glargine (Lantus Solostar) 100 Unit/Ml Inj 25 UNITS SC AMPM for 30 Days, PEN (Changed from: Insulin Glargine (Lantus) 100 Unit/Ml Inj 55 Units SQ AMPM) Continued Medications: Allopurinol (Zyloprim) 100 Mg Tab 100 MG PO DAILY, TAB Aspirin (Aspirin) 81 Mg Tab 81 MG PO DAILY Atorvastatin (Lipitor) 40 Mg Tab 40 MG PO DAILY, TAB Clopidogrel Bisulfate (Plavix) 75 Mg Tab 75 MG PO DAILY, TAB Fish Oil (Yulan-3) 1 Ea Cap 2 CAP PO DAILY Losartan Potassium (Cozaar) 100 Mg Tab 100 MG PO DAILY, TAB Metoprolol Succinate (Metoprolol Succinate ER) 50 Mg Tabcr 50 MG PO DAILY Multivitamins/Minerals (Mvi With Minerals) Tab 1 TAB PO DAILY Vitamins C & E (Vitamin C) 1 Cap Cap 1 CAP PO BID Discontinued Medications: Insulin Aspart (Novolog) 100 Units/Ml Inj 20 UNITS SQ UD 20 UNITS + SLIDING SCALE TAKES AT LUNCH AND DINNER Referrals At Discharge Follow up Referrals: Orthopedics Referral - Within 2 Weeks with Ben Brice D.O. Discharge Exam Review of Systems: Constitutional: + weakness, No fever, No chills, No sweats, No fatigue Eyes: No worsening of vision ENT: No hearing loss Respiratory: No cough, No shortness of breath, No hemoptysis Cardiovascular: No chest pain, No edema, No palpitations Abdomen: No pain, No nausea, No vomiting, No diarrhea, No constipation Musculoskeletal: + joint pain, + muscle pain, No swelling, No calf pain Genitourinary - Male: No hematuria, No dysuria Neurologic: No numbness/tingling Psychiatric: No depression symptoms Endocrine: No fatigue Hematologic / Lymphatic: No abnormal bleeding/bruising Integumentary: No rash, No itch, No new/changing skin lesions Physical Exam: General Appearance: no apparent distress Eyes: normal inspection, PERRL ENT: hearing grossly normal Neck: supple Respiratory/Chest: lungs clear, no respiratory distress, no accessory muscle use Cardiovascular: regular rate, rhythm, + systolic murmur Abdomen / GI: normal bowel sounds, non tender, soft Extremities: no calf tenderness, no pedal edema Neurologic/Psychiatric: alert, normal mood/affect, oriented x 3 Skin: normal color, warm/dry, no rash Hospital Course 77 y/o M who was admitted on 08/30 for T12 burst compression fx T12 burst compression fracture from mechanical fall s/p kyphoplasty by Dr. Brice on 09/01: - Admitted to med/surg - Leukocytosis, likely postop response- no s/s of infection- continue to follow CBC and monitor- RESOLVED - Check vitamin D level- WNL - Calcitonin spray - Orthopedics consulted, appreciate recommendations- surgical management, pain management, PT/OT, and DVT prophylaxis as per orthopedics - Orthotics consulted- TLSO brace provided - Follow postop CBC and PRP- STABLE Constipation- RESOLVED: Bowel regimen ordered T2DM w/ hyperglycemia- hgbA1c 8.8.%- STABLE: - Lantus 55 u BID decreased to 20 u BID- will continue to follow and adjust PRN - increase to 25 u BID at discharge- [facility] to continue to follow - BSG ACHS and ISS- continue at [facility]- - Diabetic education consultation -- Continue Lantus -- Consider NovoLog 20 u w/ meals once discharged from [facility] -- Routine BSG checks -- f/u w/ Endocrinology as scheduled HTN- STABLE: - Continue Metoprolol 50 mg daily, Losartan 100 mg daily - IV Hydralazine PRN TIA, CVA, CAD s/p CABG- STABLE: Continue ASA, Lipitor, Metoprolol, Plavix 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 Discharge Instructions Please refer to the electronic Patient Visit Report (Discharge Instructions) for additional information. Follow-Up Follow-up with [facility] provider within 24-48 hours Please follow-up with your PCP within 5-7 days after discharge from [facility] Please follow-up with Orthopedics, Dr. Brice within 2 weeks Follow-up with Endocrinology as scheduled on 10/25 Please follow-up/keep all of your subspecialty appointment Additional Copies To Adonay Patel M.D.
[2017-09-07 13:55] VITALS: BP 137/76; PULSE 65; TEMP 36.6; O2SAT 96
== END 2017-09-07 16:30 | DRG 479 ==
LOC: C.EDB 16:31 → C.3E 19:06 → ENRESERV 19:27
PROVIDERS: ADMIT Family Medicine; ATTEND Hospitalist
PROC: 0PU Upper Bones, Supplement (ICD-10-PCS; principal; 2017-09-01 14:15)
PROC: 0PB43ZX Excision of Thoracic Vertebra, Percutaneous Approach, Diagnostic (ICD-10-PCS; principal; 2017-09-01 14:15)
PROC: 0PS43ZZ Reposition Thoracic Vertebra, Percutaneous Approach (ICD-10-PCS; principal; 2017-09-01 14:15)
DX: S22.081A Stable burst fracture of T11-T12 vertebra, initial encounter for closed fracture (principal); E11.22 Type 2 diabetes mellitus with diabetic chronic kidney disease; N18.9 Chronic kidney disease, unspecified; E11.65 Type 2 diabetes mellitus with hyperglycemia; M10.9 Gout, unspecified; K59.00 Constipation, unspecified; Z79.02 Long term (current) use of antithrombotics/antiplatelets; Z79.4 Long term (current) use of insulin; Z79.82 Long term (current) use of aspirin; Z79.899 Other long term (current) drug therapy; Z86.73 Personal history of transient ischemic attack (TIA), and cerebral infarction without residual deficits; Z95.1 Presence of aortocoronary bypass graft; W19.XXXA Unspecified fall, initial encounter; Z91.81 History of falling; Y92.009 Unspecified place in unspecified non-institutional (private) residence as the place of occurrence of the external cause

== ENCOUNTER 2021-06-30 08:59 | Inpatient (IN) ==
--- NOTE | 2021-06-30 09:54 | Emergency Department Note ---
History of Present Illness General Chief complaint: Shortness of Breath/Dyspnea Time Seen by Provider: 06/30/21 09:29 Source: patient and RN notes reviewed Mode of arrival: EMS Limitations: no limitations History of Present Illness This patient is an 80-year-old male who is brought in by EMS after being sick for about a week. He has had a fever sore throat cough. He is unvaccinated for Covid. He has not been tested. His son has a similar symptoms and is also not been tested. He is not on oxygen at home although in route they noticed his O2 sat was 87 so they placed him on 2 L nasal cannula. His also blood pressure was mildly low in the 90s initially gave him a small fluid bolus and he is rebounded with that. He feels generally weak all over no change in taste or smell. He says he is fallen a few times because he is so weak but has had no trauma. No blood or melena stool. No abdominal pain. He does not believe he is on any blood thinners. No calf tenderness. Home Medications Medication Instructions Recorded Confirmed Type blood sugar diagnostic (OneTouch #100 ea 02/17/19 03/27/21 Rx Verio test strips) lancets 30 gauge (OneTouch Delica #100 ea 02/17/19 03/27/21 Rx Lancets) pen needle, diabetic 32 gauge x #100 ea 02/17/19 03/27/21 Rx 5/32" (BD Ultra-Fine Candace Pen Needle) aspirin 81 mg tablet,delayed 81 mg PO QAM 01/14/20 06/30/21 History release metoprolol succinate 50 mg 50 mg PO QAM #90 tab 02/19/20 06/30/21 Rx tablet,extended release 24 hr blood-glucose meter (OneTouch #1 ea 04/04/20 03/27/21 Rx Verio Meter) atorvastatin 40 mg tablet 40 mg PO QAM #90 tab 08/13/20 06/30/21 Rx clopidogrel 75 mg tablet 75 mg PO QAM #90 tab 08/13/20 06/30/21 Rx losartan 100 mg tablet 100 mg PO DAILY #90 tab 08/13/20 06/30/21 Rx allopurinol 100 mg tablet 100 mg PO QAM #90 tab 10/11/20 06/30/21 Rx insulin degludec 200 unit/mL (3 See Rx Instructions .ROUTE 06/24/21 06/30/21 Rx mL) subcutaneous pen (Tresiba .COMPLEX #18 ml FlexTouch U-200 insulin) Allergies Allergy/AdvReac Type Severity Reaction Status Date / Time gemfibrozil Allergy Unknown Verified 06/30/21 10:47 lisinopril Allergy Unknown Verified 06/30/21 10:47 Past Med/Surg History Medical History Abdominal pain Compression fracture of body of thoracic vertebra Constipation Stroke Surgical History H/O colectomy History of total hip replacement Hx of detached retina repair Hx of hand surgery S/P CABG (coronary artery bypass graft) S/P partial colectomy Family History Son Anxiety Glioblastoma Seizure Father Diabetes Sister Rheumatoid arthritis Thyroid disease Denies family history of Ovarian cancer Prostate cancer Myocardial infarction Breast cancer Congenital kidney disease Colorectal cancer Social History Smoking Status: Former smoker Tobacco Type: Smokeless Tobacco (Dip or Chew) Hx Alcohol Use: No Hx Substance Use: No Preferred Language: Taiwanese Communication Ability: Effective Visual Impairment: No Limitations Hearing Ability: Normal Shower Attendant Required: No Beliefs That Will Affect Care: None marital status: / Current Living Situation: Family Current Living Situation Comment: lives with son current occupational status: retired current occupation: [employer] Other Information That Helps Us Care for You: No other: 7 children, 5 still living Feels Safe at Home: Yes Safety Concerns: Feels Safe At This Time Childhood Exposure to Second-Hand Smoke: No Physical Activity Frequency Comment: limited Seatbelt Use: always Assistive Devices: Oxygen - Continuous and Wheelchair Review of Systems A total of 10 systems reviewed and were otherwise negative Physical Exam Vital Signs Vital Signs - 24 hr 06/30/21 09:12 06/30/21 09:20 06/30/21 09:30 Temperature 37.7 C H Temperature Source Oral Pulse Rate 108 H 110 H 105 H Pulse Rate [Apical] 110 H Pulse Rate from SpO2 Sensor 108 H 104 H Respiratory Rate 19 20 20 Respiratory Effort / Characteristics Non-Labored Spontaneous Respiratory Depth Normal Respiratory Pattern Regular Blood Pressure 117/65 113/63 Blood Pressure [Right Arm] 117/65 Blood Pressure Mean 82 79 Blood Pressure Mean [Right Arm] 82 Pulse Oximetry 95 93 96 Oxygen Delivery Method Nasal Cannula Nasal Cannula Nasal Cannula Oxygen Flow Rate 3 3 3 Sepsis Recent Fever Within 48 Hours No Sepsis New/Unexplained Change in Mental Status No Sepsis Action Taken by Nursing No Action Required Oxygen Flow Rate - Titration 3 Pulse Oximetry Post Tiitration 93 06/30/21 09:50 06/30/21 10:00 06/30/21 10:30 Temperature Temperature Source Pulse Rate 105 H 102 H 103 H Pulse Rate [Apical] Pulse Rate from SpO2 Sensor 101 H 105 H Respiratory Rate 20 20 22 Respiratory Effort / Characteristics Respiratory Depth Respiratory Pattern Blood Pressure 111/69 109/75 Blood Pressure [Right Arm] Blood Pressure Mean 83 86 Blood Pressure Mean [Right Arm] Pulse Oximetry 93 97 97 Oxygen Delivery Method Nasal Cannula Nasal Cannula Nasal Cannula Oxygen Flow Rate 3 3 3 Sepsis Recent Fever Within 48 Hours Sepsis New/Unexplained Change in Mental Status Sepsis Action Taken by Nursing Oxygen Flow Rate - Titration Pulse Oximetry Post Tiitration 06/30/21 11:00 Temperature Temperature Source Pulse Rate 94 H Pulse Rate [Apical] Pulse Rate from SpO2 Sensor 94 H Respiratory Rate 25 H Respiratory Effort / Characteristics Respiratory Depth Respiratory Pattern Blood Pressure 129/70 Blood Pressure [Right Arm] Blood Pressure Mean 89 Blood Pressure Mean [Right Arm] Pulse Oximetry 98 Oxygen Delivery Method Oxygen Flow Rate Sepsis Recent Fever Within 48 Hours Sepsis New/Unexplained Change in Mental Status Sepsis Action Taken by Nursing Oxygen Flow Rate - Titration Pulse Oximetry Post Tiitration General: Well developed well nourished older male who is somewhat hard of hearing and is on supplemental oxygen but otherwise in no acute distress, breathing comfortably on room air. Normal speech HEENT: Normal cephalic atraumatic. Pupils are equal round and reactive to light. Extraocular movements are intact. Oropharynx is pink with moist mucous membranes. No swelling of the mouth lips or tongue. Neck: Supple with a midline trachea. No meningeal signs or stiffness, no JVD or bruits. No Stridor. Chest: He does have crackles in the bases bilaterally but No increased work of breathing. Heart: Regular rate and rhythm without murmurs or gallops. Abdomen: Soft nontender, nondistended without rebound guarding or rigidity. Extremities: No cyanosis clubbing or edema. No calf tenderness or assymetry Spine/Back. Non tender to palpation. No CVA tenderness Skin: Good turgor without rashes. Neurologic exam: Cranial nerves two through 12 are intact. Motor and sensation are intact and symmetrical throughout. Course Administered Medications Discontinued Medications Sodium Chloride (Nss 1000ml) 500 mls @ 999 mls/hr IV .Q31M ONE Stop: 06/30/21 11:07 Last Infusion: 06/30/21 11:10 Dose: 0 mls/hr Documented by: [id number] Admin: 06/30/21 10:43 Dose: 999 mls/hr Documented by: [id number] Ioversol (Optiray 320 125ml) 70 ml IV ONCE ONE Stop: 06/30/21 11:53 Last Admin: 06/30/21 11:53 Dose: 70 ml Documented by: [id number] Medical Decision Making Differential Diagnosis COVID, pneumonia, acute coronary syndrome, CHF, pneumothorax, electrolyte or metabolic abnormality, sepsis, dehydration Medical Records Attestation: I reviewed the patient's medical records. Home Medications Current Medication List: was personally reviewed by me Laboratory Data Attestation: I reviewed the patient's lab results. Result diagrams: 06/30/21 09:12 06/30/21 09:12 Lab Results 06/30/21 06/30/21 06/30/21 Range/Units 09:12 09:12 09:12 WBC 9.70 (4.8-10.8) K/uL RBC 4.44 L (4.7-6.1) M/uL Hgb 13.4 L (14.0-18.0) g/dL Hct 40.4 L (42-52) % MCV 91.0 (80-100) fL MCH 30.2 (25-34) pg MCHC 33.2 (32-36) g/dL RDW Std Deviation 48.4 H (36.4-46.3) fL RDW Coeff of Deirdre 14.4 (11.5-14.5) % Plt Count 176 (130-400) K/uL MPV 12.3 H (7.4-10.4) fL Immature Gran % (Auto) 0.2 % Neut % (Auto) 77.7 % Lymph % (Auto) 8.4 % [place] % (Auto) 13.5 % Eos % (Auto) 0.0 % Baso % (Auto) 0.2 % Neut # (Auto) 7.54 H (1.4-6.5) K/uL Lymph # (Auto) 0.81 L (1.2-3.4) K/uL [place] # (Auto) 1.31 H (0.11-0.59) K/uL Eos # (Auto) 0.00 (0-0.5) K/uL Baso # (Auto) 0.02 (0-0.2) K/uL Immature Gran # (Auto) 0.02 (0.00-0.02) K/uL PT 10.9 (9.0-12.0) Seconds INR 1.1 (0.9-1.1) APTT 27.4 (21.0-31.0) Seconds PTT Ratio 1.0 D-Dimer 1060 H* (0-500) ug/L FEU Sodium 133 L (136-145) mmol/L Potassium 4.3 (3.5-5.1) mmol/L Chloride 101 (98-107) mmol/L Carbon Dioxide 22 (21-32) mmol/L Anion Gap 10 (3-11) BUN 25 H (6-23) mg/dl Creatinine 2.02 H (0.6-1.4) mg/dl Est Cr Clr Drug Dosing 27.7 ml/min Est GFR ( Amer) 34.8 ml/min Est GFR (Non-Af Amer) 30.0 ml/min BUN/Creatinine Ratio 12.4 (10-20) Glucose 214 H (70-99(Fasting)) mg/dl Calcium 9.0 (8.5-10.1) mg/dl Magnesium (1.7-2.4) mg/dl Total Bilirubin 0.4 (0.2-1.0) mg/dl AST 26 (13-39) U/L ALT 16 (7-52) U/L Alkaline Phosphatase 72 (34-104) U/L Troponin I 0.05 H* (0-0.04) ng/ml C-Reactive Protein (0-0.5) mg/dl Total Protein 6.4 (6.0-8.3) gm/dl Albumin 3.8 (3.4-5.0) gm/dl Globulin 2.6 (2.5-4.0) gm/dl Albumin/Globulin Ratio 1.5 (0.9-2) Lipase 24 (11-82) U/L SARS-CoV-2, RNA, NAAT (NEGATIVE) 06/30/21 06/30/21 06/30/21 Range/Units 09:12 09:17 11:33 WBC (4.8-10.8) K/uL RBC (4.7-6.1) M/uL Hgb (14.0-18.0) g/dL Hct (42-52) % MCV (80-100) fL MCH (25-34) pg MCHC (32-36) g/dL RDW Std Deviation (36.4-46.3) fL RDW Coeff of Deirdre (11.5-14.5) % Plt Count (130-400) K/uL MPV (7.4-10.4) fL Immature Gran % (Auto) % Neut % (Auto) % Lymph % (Auto) % [place] % (Auto) % Eos % (Auto) % Baso % (Auto) % Neut # (Auto) (1.4-6.5) K/uL Lymph # (Auto) (1.2-3.4) K/uL [place] # (Auto) (0.11-0.59) K/uL Eos # (Auto) (0-0.5) K/uL Baso # (Auto) (0-0.2) K/uL Immature Gran # (Auto) (0.00-0.02) K/uL PT (9.0-12.0) Seconds INR (0.9-1.1) APTT (21.0-31.0) Seconds PTT Ratio D-Dimer (0-500) ug/L FEU Sodium (136-145) mmol/L Potassium (3.5-5.1) mmol/L Chloride (98-107) mmol/L Carbon Dioxide (21-32) mmol/L Anion Gap (3-11) BUN (6-23) mg/dl Creatinine (0.6-1.4) mg/dl Est Cr Clr Drug Dosing ml/min Est GFR ( Amer) ml/min Est GFR (Non-Af Amer) ml/min BUN/Creatinine Ratio (10-20) Glucose (70-99(Fasting)) mg/dl Calcium (8.5-10.1) mg/dl Magnesium 1.5 L (1.7-2.4) mg/dl Total Bilirubin (0.2-1.0) mg/dl AST (13-39) U/L ALT (7-52) U/L Alkaline Phosphatase (34-104) U/L Troponin I (0-0.04) ng/ml C-Reactive Protein 3.87 H (0-0.5) mg/dl Total Protein (6.0-8.3) gm/dl Albumin (3.4-5.0) gm/dl Globulin (2.5-4.0) gm/dl Albumin/Globulin Ratio (0.9-2) Lipase (11-82) U/L SARS-CoV-2, RNA, NAAT POSITIVE A* (NEGATIVE) Imaging Data Attestation: I personally reviewed and interpreted this imaging study as follows: My Impression: Chest x-rayno acute infiltrate, failure, pneumothorax Radiologist's Impression: Chest X-Ray 06/30/21 09:46 Atypical chest pain CLINICAL HISTORY: Atypical chest pain TECHNIQUE: Single frontal radiograph of the chest was obtained. Comparison: None available at the time of this dictation. FINDINGS: Multiple median sternotomy wires are seen including fractured top wire. Calcified aortic knob is seen. Lungs are underinflated but clear. No evidence of pleural effusion or pneumothorax. IMPRESSION: No acute chest disease. ACT 112: Negative or not required by law. Electronically signed by: Mckay Jain M.D. 06/30/2021 10:14 AM Chest CTA 06/30/21 10:36 CT angio chest PE protocol CLINICAL HISTORY: PE TECHNIQUE: Multidetector row helical CT of the chest was performed. Coronal and sagittal reformations were obtained. Coronal and sagittal MIPS were obtained from the axial data set and were submitted for review. Automated dose lowering techniques and/or adjustment according to patient size were utilized for this ex am. Comparison: Comparison is made to CTA chest 10/24/2008 FINDINGS: Lungs and pleura: Atelectasis versus scarring is seen in the dependent portions of the lungs and there are dependent groundglass opacities. There is an i ntraparenchymal lymph node in the right major fissure. In addition, there is a 2 mm nodule in the left upper lobe (image 136 of series 4). Heart and pericardium: Heart size is normal. No pericardial effusion. Vessels: Severe atherosclerotic changes in the aorta and coronary arteries. Mediastinum and neeta: Unremarkable. Chest wall and lower neck: Unremarkable. Abdomen: Unremarkable. Bones: Unremarkable. IMPRESSION: 1. No evidence of pulmonary embolism. 2. Atelectasis is seen. Dependent groundglass opacities, which may represent atelectasis or pneumonia. Tiny pulmonary nodules as above. 3. Severe atherosclerotic changes. ACT 112: Negative or not required by law. Electronically signed by: Mckay Jain M.D. 06/30/2021 12:19 PM ECG Data Attestation: I personally reviewed and interpreted this ECG as follows: Indication: + SOB/dyspnea Rate (beats per minute): 109 Rhythm: + sinus tachycardia ECG Intervals/blocks: + Left anterior fascicular block, + Right Bundle branch block and + Normal ME ECG [place]: + Normal ECG ST segments: + Normal ST segments ECG Findings: no PACs or no PVCs Comparison ECG Date: from (01/14/20) Change: no significant change MDM Narrative This patient comes in as described above. He was placed in room B8. He was Covid tested. IV access was tablets and blood work was obtained EKG and chest x-ray obtained. He was reassessed frequently. EKG does not suggest acute coronary syndrome or arrhythmia he has had no chest pain. Troponini s mildly elevated 0.05. Chest x-ray does not show congestive heart failure pneumonia or pneumothorax. I was concerned with his hypoxemia and elevated D-dimer that he may have a PE I did order a CTA. There is no evidence of PE. His creatinine is mildly elevated at 2. I discussed this with the collision technician prior to see if he get a lower dye load. I discussed this with DR. Morrison, the hospitalist as well who agreed. Fortunately CAT scan was unremarkable. I do think the patient needs to be admitted as he is hypoxemic week and has Covid. I did consult Dr Barlow to see him in ER for these measures he was given additional fluid bolus. His Covid test did come back positive. Continuous cardiac monitoring: Orders placed in EMR for continuous environmental monitoring technician. Upon my interpretation the patient was noted to be sinus tachycardia with a rate of 100. Impression & Plan COVID-19, Hypoxemia, Weakness, Elevated troponin Discharge Plan Visit Data Chief Complaint: Shortness of Breath/Dyspnea ED Provider: Nigel Chris Discharge Problem: COVID-19, Hypoxemia, Weakness, Elevated troponin Patient Disposition: Admitted As Inpatient Discharge Instructions Interventions: ED Discharge Assessment Last Done: 06/30/21 12:43
--- NOTE | 2021-06-30 10:15 | XRay Report ---
Atypical chest pain CLINICAL HISTORY: Atypical chest pain TECHNIQUE: Single frontal radiograph of the chest was obtained. Comparison: None available at the time of this dictation. FINDINGS: Multiple median sternotomy wires are seen including fractured top wire. Calcified aortic knob is seen . Lungs are underinflated but clear. No evidence of pleural effusion or pneumothorax. IMPRESSION: No acute chest disease. ACT 112: Negative or not required by law. Electronically signed by: Mckay Jain M.D. 06/30/2021 10:14 AM
[2021-06-30 10:24] LABS: Basophils # (auto) 0.02 K/uL (0-0.2); Basophils % (auto) 0.2 %; Hematocrit (blood only) 40.4 % (42-52); Hemoglobin 13.4 g/dL (14.0-18.0); Immature Granulocytes # (auto) 0.02 K/uL (0.00-0.02); Immature Granulocytes % (auto) 0.2 %; Lymphocytes # (auto) 0.81 K/uL (1.2-3.4); Lymphocytes % (auto) 8.4 %; Mean Corpuscular Hemoglobin 30.2 pg (25-34); Mean Corpuscular Hgb Conc 33.2 g/dL (32-36); Mean Platelet Volume 12.3 fL (7.4-10.4); Monocytes # (auto) 1.31 K/uL (0.11-0.59); Monocytes % (auto) 13.5 %; Neutrophils # (auto) 7.54 K/uL (1.4-6.5); Neutrophils % (auto) 77.7 %; Platelet Count 176 K/uL (130-400); RDW Coefficient of Variation 14.4 % (11.5-14.5); RDW Standard Deviation 48.4 fL (36.4-46.3); Red Blood Count 4.44 M/uL (4.7-6.1)
[2021-06-30 10:33] LABS: INR 1.1 (0.9-1.1); Partial Thromboplastin Time 27.4 Seconds (21.0-31.0); Prothrombin Time 10.9 Seconds (9.0-12.0)
[2021-06-30 10:34] LABS: D Dimer 1060 ug/L FEU (0-500)
[2021-06-30] MEDS ORDERED: SODIUM CHLORIDE 0.9% 1000ML 500 ML IV ONE (10:37)
[2021-06-30 10:47] LABS: Troponin I 0.05 ng/ml (0-0.04)
--- NOTE | 2021-06-30 10:54 | History & Physical Report ---
Date of Service June 30, 2021 Assessment & Plan (1) Acute respiratory failure with hypoxia: Plan: Acute hypoxic respiratory failure 2/2 Covid pneumonia Covid positive: 06/30/2021 Febrile on admission, tachycardic on admission First day of symptoms:Approximately 1 week prior to admission Vaccination status:Unvaccinated Baseline kidney function: Creatinine 1.51.8 at baseline, estimated GFR ranging 3347 Admitting kidney function:Creatinine 2.02, consistent with ADIN suspect prerenal AST/ALT:No transaminitis on admission Admitting CXR: No acute chest disease. CRP:Pending Continue dexamethasone x10-day course Remdesivir:Deferred due to symptom onset and renal function Baricitinib:Not indicated at time of admission, not requiring high flow admission -D-Dimer elevated, no leg swelling - CTA With no evidence of PE. Dopplers pending (2) COVID-19: Plan: As above (3) S/P CABG (coronary artery bypass graft): Plan: CAD with history of CABG, Troponin elevation suspect demand ischemia Patient has not followed with cardiology as outpatient Cerebral on ASA/Plavix - trop 0.05 on admission, Trended. No chest pain at admission/prior to admission Suspect demand ischemia - EKG: sinus tachycardia, RBBB similar to prior, no territorial ST changes. q waves V2. Qtc 498. Mg pending, avoid QT prolonging medications - TTE pending -Continue dual antiplatelet therapy, metoprolol - Hold losartan due to ADIN - Continue Atorvastatin Magnesium pending. Potassium 4.3. 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 A1c 04/2021 6.5% Hold home insulin degludec 50 units subcu daily Transition to basal bolus insulin while inpatient Based on 50 units TDD: Basal 13 twice daily, CF 30, ratio 11 Pharmacy consulted for additional management while on steroids for Covid (5) Chronic kidney disease, stage 3: Plan: ADIN on admission, elevation creatinine to 2.0 As above - BMP daily - Avoid nephrotoxins (6) Hypertension: Plan: Continue metoprolol, hold losartan for ADIN Patient on telemetry, may use IV metoprolol versus hydralazine as needed for additional blood pressure control (7) Gout: Plan: Gout No recent flare, on allopurinol (8) DVT prophylaxis: Plan: Heparin SQ COVID dosing due to renal function. If CTA/Doppler + for DVT/PE start heparin gtt Diet: HH/DM2 Dispo: Med/Tele CODE STATUS: DNR/DNI per patient, surrogate decision makers would be children (pt does not want to appoint one as primary) Plan: History of colectomy No ostomy bag, has normal BMS History of Present Illness Chief Complaint: Cough, weakness Primary Care Provider: Adonay Patel MD Bud Richard is an 80-year-old male with a past medical history of CAD with CABG, diabetes with nephropathy, hypertension, CKD 3, and cervical radiculitis who presents with about 3-4days of fever, sore throat, and cough. COVID unvaccinated. Has had falls due to weakness at home. No head injury. Son has had URI symptoms as well. On admission was noted to have an elevated D-dimer, hypoxia requiring 3 L of nasal cannula oxygen. At bedside visit patient reports that he has had about 3 days of cough, fatigue. No nausea, vomiting, diarrhea, constipation. Denies palpitations, chest pain, chest pressure. Notes his son has been sick with a respiratory illness, has not been tested for Covid. Patient is not vaccinated. Reviewed medications, patient has been trying to avoid doctors offices did not get sick. Did have his insulin adjusted from 55 units to 50, takes no other diabetes medications. Has not been following with a clinical professor, but has been taking his dual antiplatelet therapy and blood pressure medicines without missing any recent doses. Medical History: Reviewed Medications: Reviewed Surgical History: Reviewed Allergies: Reviewed Social History:Endorses to use, a pouch last him several weeks. Denies alcohol use. Denies medical marijuana use. Denies recreational drug use. Code Status:Surrogate decision maker would be one of his children, he says he does not have a preference or want to appoint 1 above the other. DNR/DNI, would not want to be intubated under any circumstances Allergies Allergy/AdvReac Type Severity Reaction Status Date / Time gemfibrozil Allergy Unknown Verified 06/30/21 10:47 lisinopril Allergy Unknown Verified 06/30/21 10:47 Home Medications Medication Instructions Recorded Confirmed Type blood sugar diagnostic (OneTouch #100 ea 02/17/19 03/27/21 Rx Verio test strips) lancets 30 gauge (OneTouch Delica #100 ea 02/17/19 03/27/21 Rx Lancets) pen needle, diabetic 32 gauge x #100 ea 02/17/19 03/27/21 Rx 5/32" (BD Ultra-Fine Candace Pen Needle) aspirin 81 mg tablet,delayed 81 mg PO QAM 01/14/20 06/30/21 History release metoprolol succinate 50 mg 50 mg PO QAM #90 tab 02/19/20 06/30/21 Rx tablet,extended release 24 hr blood-glucose meter (OneTouch #1 ea 04/04/20 03/27/21 Rx Verio Meter) atorvastatin 40 mg tablet 40 mg PO QAM #90 tab 08/13/20 06/30/21 Rx clopidogrel 75 mg tablet 75 mg PO QAM #90 tab 08/13/20 06/30/21 Rx losartan 100 mg tablet 100 mg PO DAILY #90 tab 08/13/20 06/30/21 Rx allopurinol 100 mg tablet 100 mg PO QAM #90 tab 10/11/20 06/30/21 Rx insulin degludec 200 unit/mL (3 See Rx Instructions .ROUTE 06/24/21 06/30/21 Rx mL) subcutaneous pen (Tresiba .COMPLEX #18 ml FlexTouch U-200 insulin) Past Med/Surg History Medical History Abdominal pain Compression fracture of body of thoracic vertebra Constipation Stroke Surgical History H/O colectomy History of total hip replacement Hx of detached retina repair Hx of hand surgery S/P CABG (coronary artery bypass graft) S/P partial colectomy Family History Son Anxiety Glioblastoma Seizure Father Diabetes Sister Rheumatoid arthritis Thyroid disease Denies family history of Ovarian cancer Prostate cancer Myocardial infarction Breast cancer Congenital kidney disease Colorectal cancer Social History Tobacco Type: Smokeless Tobacco (Dip or Chew) Hx Alcohol Use: No Hx Substance Use: No Preferred Language: Welsh Communication Ability: Effective Visual Impairment: No Limitations Hearing Ability: Normal marital status: / Current Living Situation Comment: lives with son current occupational status: retired current occupation: [employer] other: 7 children, 5 still living Feels Safe at Home: Yes Childhood Exposure to Second-Hand Smoke: No Physical Activity Frequency Comment: limited Seatbelt Use: always Review of Systems Review of Systems: All systems reviewed & are unremarkable except as noted in Subjective Physical Exam Physical Exam: General: A&Ox3. NAD. Cooperative. HEENT: Atraumatic, normocephalic.Visual acuity and hearing grossly intact Pulm: CTAB A&P. -wheezes, -rales, -rhonchi. Symmetrical chest rise. No increased work of breathing. No respiratory distress. Cardiac: regular, tachycardic, -mrg. Radial pulses intact and symmetrical. Abdominal: Nontender, nondistended, soft. BS present. Extremities: Warm, dry. Moves all extremities equally. 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 No lower extremity ulceration appreciated. Results & Data Results & Data ([facility]) Vital Signs (Past 12 Hours) Vital Signs Temp Pulse Pulse Resp BP BP Pulse Ox 06/30/21 10:30 103 H 22 109/75 97 06/30/21 10:00 102 H 20 111/69 97 06/30/21 09:50 105 H 20 93 06/30/21 09:30 105 H 20 113/63 96 06/30/21 09:20 37.7 C H 110 H 110 H 20 117/65 117/65 93 06/30/21 09:12 108 H 19 95 PG Care Time/CCT Total # of Minutes Spent Total Time Spent with Patient: Total time spent is greater than 50% in coordination of care (as documented) at patient's floor/unit and/or counseling patient: Coding Level of Care Code 36013 Initial Inpt Care Lvl 3 Diagnoses Acute respiratory failure with hypoxia J96.01 COVID-19 U07.1 S/P CABG (coronary artery bypass graft) Z95.1 DM (diabetes mellitus) E11.9 Chronic kidney disease, stage 3 N18.3 Hypertension I10 Gout M10.9 DVT prophylaxis Z29.9
[2021-06-30 11:04] LABS: Albumin Globulin Ratio 1.5 (0.9-2); Albumin Level 3.8 gm/dl (3.4-5.0); BUN Creatinine Ratio 12.4 (10-20); Bilirubin,Total 0.4 mg/dl (0.2-1.0); Creatinine Clr Calc Pharmacy 27.7 ml/min; Est GFR (African American) 34.8 ml/min; Globulin 2.6 gm/dl (2.5-4.0); Potassium 4.3 mmol/L (3.5-5.1); Total Protein 6.4 gm/dl (6.0-8.3)
[2021-06-30] MEDS ORDERED: OPTIRAY 320 125ml IV ONE (11:52)
--- NOTE | 2021-06-30 12:21 | CT Scan Report ---
CT angio chest PE protocol CLINICAL HISTORY: PE TECHNIQUE: Multidetector row helical CT of the chest was performed. Coronal and sagittal reformations were obtained. Coronal and sagittal MIPS were obtained from the axial data set and were submitted fo r review. Automated dose lowering techniques and/or adjustment according to patient size were utiliz ed for this exam. Comparison: Comparison is made to CTA chest 10/24/2008 FINDINGS: Lungs and pleura: Atelectasis versus scarring is seen in the dependent portions of the lungs and ther e are dependent groundglass opacities. There is an intraparenchymal lymph node in the right major fis sure. In addition, there is a 2 mm nodule in the left upper lobe (image 136 of series 4). Heart and pericardium: Heart size is normal. No pericardial effusion. Vessels: Severe atherosclerotic changes in the aorta and coronary arteries. Mediastinum and neeta: Unremarkable. Chest wall and lower neck: Unremarkable. Abdomen: Unremarkable. Bones: Unremarkable. IMPRESSION: 1. No evidence of pulmonary embolism. 2. Atelectasis is seen. Dependent groundglass opacities, which may represent atelectasis or pneumoni a. Tiny pulmonary nodules as above. 3. Severe atherosclerotic changes. ACT 112: Negative or not required by law. Electronically signed by: Mckay Jain M.D. 06/30/2021 12:19 PM
[2021-06-30] MEDS ORDERED: CARBOHYDRATES FOR HYPOGLYCEMIA PO PRN (15:30)
[2021-06-30] MEDS ORDERED: DEXTROSE 50% 50 ML SYRINGE IV PRN (15:30)
[2021-06-30] MEDS ORDERED: GLUCOSE 40% GEL 15 GM TUBE PO PRN (15:30)
[2021-06-30] MEDS ORDERED: GLUCAGON FOR INJ 1 MG VIAL SQ PRN (15:30)
[2021-06-30] MEDS ORDERED: ACETAMINOPHEN 325 MG TAB PO PRN (15:30)
[2021-06-30] MEDS ORDERED: PHARMACY GLYCEMIC MGMT CONSULT PRN (15:30)
[2021-06-30] MEDS ORDERED: GLUCOSE 10 TABS/TUBE PO PRN (15:30)
[2021-06-30] MEDS: HEPARIN SOD 5,000 UNIT/0.5 ML VIAL SQ SCH ×2 (16:40→21:23)
[2021-06-30] MEDS: dexAMETHasone 6 MG in SYRINGE 0 ML IV SCH (16:40)
[2021-06-30] MEDS: INSULIN ASPART PER UNIT SC SCH ×2 (17:10→21:47)
[2021-06-30] MEDS: INSULIN GLARGINE SOLOSTAR 100 UNITS/ML 3 ML PEN SC SCH (21:50)
--- NOTE | 2021-06-30 22:54 | Electrocardiogram Report ---
Test Reason : Blood Pressure : / mmHG Vent. Rate : 109 BPM Atrial Rate : 109 BPM P-R Int : 186 ms QRS Dur : 128 ms QT Int : 370 ms P-R-T Axes : 049 -68 104 degrees QTc Int : 498 ms Sinus tachycardia Right bundle branch block Left anterior fascicular block Bifascicular block Left ventricular hypertrophy with repolarization abnormality Cannot rule out Septal infarct , age undetermined Abnormal ECG When compared with ECG of 14-JAN-2020 09:37, Minimal criteria for Septal infarct are now Present Confirmed by Bart Lopez ([id number]) on 06/30/2021 10:54:10 PM Referred By: Confirmed By:Bart Lopez
[2021-07-01] MEDS: INSULIN ASPART PER UNIT SC SCH ×6 (00:22→20:06)
[2021-07-01] MEDS: HEPARIN SOD 5,000 UNIT/0.5 ML VIAL SQ SCH ×3 (06:01→20:59)
[2021-07-01 07:34] LABS: Hematocrit (blood only) 41.1 % (42-52); Hemoglobin 13.8 g/dL (14.0-18.0); Immature Granulocytes # (auto) 0.01 K/uL (0.00-0.02); Immature Granulocytes % (auto) 0.1 %; Lymphocytes # (auto) 0.93 K/uL (1.2-3.4); Lymphocytes % (auto) 13.1 %; Mean Corpuscular Hemoglobin 30.5 pg (25-34); Mean Corpuscular Hgb Conc 33.6 g/dL (32-36); Mean Corpuscular Volume 90.9 fL (80-100); Mean Platelet Volume 12.1 fL (7.4-10.4); Monocytes # (auto) 0.62 K/uL (0.11-0.59); Monocytes % (auto) 8.7 %; Neutrophils # (auto) 5.55 K/uL (1.4-6.5); Neutrophils % (auto) 78.1 %; Platelet Count 166 K/uL (130-400); RDW Coefficient of Variation 14.5 % (11.5-14.5); RDW Standard Deviation 48.1 fL (36.4-46.3); Red Blood Count 4.52 M/uL (4.7-6.1); White Blood Count 7.11 K/uL (4.8-10.8)
--- NOTE | 2021-07-01 08:05 | Ultrasound Report ---
US venous doppler LE BI CLINICAL HISTORY: +dd COMPARISON: None available at the time of this dictation. TECHNIQUE: Bilateral lower extremity real-time compression venous ultrasound with Color Doppler imagi ng. Utilizing real-time ultrasonic imaging multiple real time high-resolution ultrasonic images with comp ression and noncompression maneuvers of the deep venous system in addition to color doppler imaging w ere performed from the common femoral vein through the proximal calf veins. FINDINGS: Currently there is normal compressibility of the deep venous system from the common femoral vein thro ugh the proximal calf veins. No current evidence of acute thrombosis is identified. Impression: No evidence of deep venous thrombus. ACT 112: Negative or not required by law. Electronically signed by: Mckay Jain M.D. 07/01/2021 8:04 AM
[2021-07-01 08:07] LABS: Calcium 9.8 mg/dl (8.5-10.1); Creatinine Clr Calc Pharmacy 34.3 ml/min; Est GFR (African American) 45.8 ml/min; Est GFR (Non-African American) 39.5 ml/min; Potassium 4.7 mmol/L (3.5-5.1)
[2021-07-01] MEDS: INSULIN HUMAN NPH SC SCH (08:51)
[2021-07-01] MEDS: CLOPIDOGREL BISULFATE 75 MG TAB PO SCH (08:54)
[2021-07-01] MEDS: ASPIRIN 81 MG ECTAB PO SCH (08:54)
[2021-07-01] MEDS: METOPROLOL SUCC 50MG EXT REL TAB PO SCH (08:54)
[2021-07-01] MEDS: dexAMETHasone 6 MG in SYRINGE 0 ML IV SCH (08:54)
[2021-07-01] MEDS: allopurinoL 100 MG TAB PO SCH (08:54)
[2021-07-01] MEDS: ATORVASTATIN 40 MG TAB PO SCH (08:54)
--- NOTE | 2021-07-01 10:36 | Pharmacy Report ---
Pharmacy Glycemic Short Note 2 - Date of Service July 01, 2021 - Glycemic Short BSG Results (Last 24 hours): 06/30/21 06/30/21 06/30/21 09:12 17:08 21:08 Glucose 214 H POC Glucose 114 H 235 H 07/01/21 07/01/21 07/01/21 00:07 04:05 06:50 Glucose 111 H POC Glucose 145 H 174 H 07/01/21 07:35 Glucose POC Glucose 106 H OUTPATIENT ANTIDIABETIC REGIMEN: * Tresiba 50 units daily * A1c 6.5% 04/30/21 ASSESSMENT: * Type 2 diabetic admitted with COVID pneumonia. Started on steroids on admission, anticipate steroid induced hyperglycemia * Insulin degludec listed on med rec, however per notes patient has not seen Endo since 2019 and does not follow blood sugar at home * Will trial low dose NPH 0.2 units/kg with steroids, continue scale for HS for basal insulin PLAN FOR INPATIENT GLYCEMIC CONTROL: * Hold outpatient oral diabetes medications * Basal insulin * Lantus 0-15 units HS * Bolus insulin * NovoLog per scale ACHS or Q6hrs while NPO * Goal Range: Low 110 mg/dL - High 140 mg/dL * Correction Factor: 20 mg/dL/unit * Nutritional / Prandial insulin per carb ratio of 1 unit per 7 grams CHO consumed PLAN FOR DISCHARGE: * tbd
--- NOTE | 2021-07-01 10:59 | XCELERA ---
[id number] \\[id number]_[id number]
[2021-07-01] MEDS: INSULIN GLARGINE SOLOSTAR 100 UNITS/ML 3 ML PEN SC SCH (20:10)
--- NOTE | 2021-07-01 20:26 | Hospitalist Progress Note ---
Date of Service July 01, 2021 Assessment & Plan (1) Acute respiratory failure with hypoxia: Plan: Acute hypoxic respiratory failure 2/ Covid pneumonia Covid positive: 06/30/2021 Febrile on admission, tachycardic on admission First day of symptoms:Approximately 1 week prior to admission Vaccination status:Unvaccinated Admitting CXR: No acute chest disease. -CT angiogram chest negative for PE, dependent groundglass opacities which may represent atelectasis or pneumonia Venous Dopplers bilateral lower extremities negative CRP: Mildly elevated 3.87 -requiring 2LNC on admission, now improved, weaned to room air Continue dexamethasone x10-day course Remdesivir:Deferred due to symptom onset and renal function Baricitinib:Not indicated at time of admission, not requiring high flow (2) ADIN (acute kidney injury): Plan: Creatinine up to 2.0 on admission, received IV fluids in the ER Creatinine down to 1.6 which is his baseline Holding home losartan Follow BMP No further IV fluids needed (3) COVID-19: Plan: As above (4) HFrEF (heart failure with reduced ejection fraction): Plan: Echocardiogram performed for mildly elevated troponin on admission, now shows LVEF 30-35% which is at decreased from previous echo in 2009-of note, these results came back at the end of the day and I did not yet discuss them with the patient He has a history of CAD status post CABG He has not followed with a collator in many years CABG was in 2007 Continue on Toprol-XL, holding home losartan for acute kidney injury as above Does not seem volume overloaded at this time Consult cardiology for further evaluation May need further work-up as an outpatient (5) Elevated troponin: Plan: Mildly elevated at 0.05/0.06/0.07, no chest pain ECG with RBBB and left anterior fascicular block, sinus rhythm and first-degree AV block-trifascicular block and with reduced EF Echocardiogram with wall motion abnormalities but appears similar to previous echo in 2009 Consulting cardiology as above (6) S/P CABG (coronary artery bypass graft): Plan: CAD with history of CABG in 2007 at [facility] in [place] Troponin elevation suspect demand ischemia -Continue ASA/Plavix Continue metoprolol - Hold losartan due to ADIN - Continue Atorvastatin (7) CAD (coronary artery disease), ch[place] coronary artery: Plan: As above (8) DM (diabetes mellitus): Plan: Type 2 diabetes mellitus with nephropathy On insulin degludec [employer] Has not seen endocrine since 2019, does not follow BSG at home A1c 04/2021 6.5% which is well controlled Hold home insulin degludec 50 units subcu daily Transition to basal bolus insulin while inpatient Pharmacy consulted for additional management while on steroids for Covid-added NPH (9) Chronic kidney disease, stage 3: Plan: ADIN on admission, as above - BMP daily - Avoid nephrotoxins (10) Hypertension: Plan: Blood pressures are controlled to mildly elevated metoprolol, hold losartan for ADIN Patient on telemetry, may use IV metoprolol versus hydralazine as needed for additional blood pressure control (11) Gout: Plan: Gout No recent flare, on allopurinol (12) History of CVA (cerebrovascular accident): Plan: Continue aspirin Plavix, statin (13) DVT prophylaxis: Plan: Heparin SQ COVID dosing due to renal function Dispo: Med/Tele CODE STATUS: DNR/DNI per patient, surrogate decision makers would be children (pt does not want to appoint one as primary) Discussed his care with his daughter on the phone Admission and Anticipated Discharge Date Admission Date: June 30, 2021 Subjective Patient reports feeling better today than yesterday, is weaned off of oxygen to room air. Denies any chest pain or shortness of breath. He did get out of bed to the chair for few hours today but feels a little bit weak all over. He is eating and drinking. No bowel movement since admission. Telemetry with sinus rhythm with first-degree AV block and rates in the 80s Review of Systems Review of Systems: All systems reviewed & are unremarkable except as noted in HPI & below Physical Exam Constitutional: WD/WN, vitals as above Eyes: PERRL, conjunctivae normal, anicteric sclerae ENMT: external ear and nose normal, oropharynx normal Neck: trachea midline, no thyromegaly Respiratory: normal respiratory effort; no cough Auscultation: + crackles (At bases); no wheezes Cardiovascular: RRR, no murmur, no edema Chest (Breasts): Chest: normal inspection of chest Gastrointestinal (Abdomen): normal bowel sounds, soft, nontender, no hepatosplenomegaly Musculoskeletal: Extremities: extremities normal to inspection; no cyanosis and no clubbing Skin: no rashes, warm and dry Neurologic: moves all extremities and awake; no focal motor deficits Psychiatric: A+Ox3, euthymic affect Lymphatic: no lymphedema Results & Data Results & Data ([facility]) Vital Signs (Past 12 Hours) Vital Signs Temp Pulse Pulse Resp BP Pulse Ox Pulse Ox 07/01/21 19:19 36.6 C 79 18 165/66 H 96 07/01/21 16:34 36.4 C L 85 18 150/76 H 97 07/01/21 15:30 96 07/01/21 13:12 97 07/01/21 11:02 36.4 C L 84 17 107/70 99 07/01/21 10:00 89 Laboratory Results 07/01/21 07/01/21 07/01/21 Range/Units 20:03 16:41 11:29 WBC (4.8-10.8) K/uL RBC (4.7-6.1) M/uL Hgb (14.0-18.0) g/dL Hct (42-52) % MCV (80-100) fL MCH (25-34) pg MCHC (32-36) g/dL RDW Std Deviation (36.4-46.3) fL RDW Coeff of Deirdre (11.5-14.5) % Plt Count (130-400) K/uL MPV (7.4-10.4) fL Immature Gran % (Auto) % Neut % (Auto) % Lymph % (Auto) % Sibley % (Auto) % Eos % (Auto) % Baso % (Auto) % Neut # (Auto) (1.4-6.5) K/uL Lymph # (Auto) (1.2-3.4) K/uL Sibley # (Auto) (0.11-0.59) K/uL Eos # (Auto) (0-0.5) K/uL Baso # (Auto) (0-0.2) K/uL Immature Gran # (Auto) (0.00-0.02) K/uL Sodium (136-145) mmol/L Potassium (3.5-5.1) mmol/L Chloride (98-107) mmol/L Carbon Dioxide (21-32) mmol/L Anion Gap (3-11) BUN (6-23) mg/dl Creatinine (0.6-1.4) mg/dl Est Cr Clr Drug Dosing ml/min Est GFR ( Amer) ml/min Est GFR (Non-Af Amer) ml/min BUN/Creatinine Ratio (10-20) Glucose (70-99(Fasting)) mg/dl POC Glucose 138 H 122 H 121 H (70-99) mg/dl Calcium (8.5-10.1) mg/dl Troponin I (0-0.04) ng/ml 07/01/21 07/01/21 07/01/21 Range/Units 07:35 06:50 06:50 WBC 7.11 (4.8-10.8) K/uL RBC 4.52 L (4.7-6.1) M/uL Hgb 13.8 L (14.0-18.0) g/dL Hct 41.1 L (42-52) % MCV 90.9 (80-100) fL MCH 30.5 (25-34) pg MCHC 33.6 (32-36) g/dL RDW Std Deviation 48.1 H (36.4-46.3) fL RDW Coeff of Deirdre 14.5 (11.5-14.5) % Plt Count 166 (130-400) K/uL MPV 12.1 H (7.4-10.4) fL Immature Gran % (Auto) 0.1 % Neut % (Auto) 78.1 % Lymph % (Auto) 13.1 % Sibley % (Auto) 8.7 % Eos % (Auto) 0.0 % Baso % (Auto) 0.0 % Neut # (Auto) 5.55 (1.4-6.5) K/uL Lymph # (Auto) 0.93 L (1.2-3.4) K/uL Sibley # (Auto) 0.62 H (0.11-0.59) K/uL Eos # (Auto) 0.00 (0-0.5) K/uL Baso # (Auto) 0.00 (0-0.2) K/uL Immature Gran # (Auto) 0.01 (0.00-0.02) K/uL Sodium 136 (136-145) mmol/L Potassium 4.7 (3.5-5.1) mmol/L Chloride 102 (98-107) mmol/L Carbon Dioxide 25 (21-32) mmol/L Anion Gap 9 (3-11) BUN 29 H (6-23) mg/dl Creatinine 1.61 H D (0.6-1.4) mg/dl Est Cr Clr Drug Dosing 34.3 ml/min Est GFR ( Amer) 45.8 ml/min Est GFR (Non-Af Amer) 39.5 ml/min BUN/Creatinine Ratio 18.0 (10-20) Glucose 111 H (70-99(Fasting)) mg/dl POC Glucose 106 H (70-99) mg/dl Calcium 9.8 (8.5-10.1) mg/dl Troponin I (0-0.04) ng/ml 07/01/21 07/01/21 06/30/21 Range/Units 04:05 00:07 21:08 WBC (4.8-10.8) K/uL RBC (4.7-6.1) M/uL Hgb (14.0-18.0) g/dL Hct (42-52) % MCV (80-100) fL MCH (25-34) pg MCHC (32-36) g/dL RDW Std Deviation (36.4-46.3) fL RDW Coeff of Deirdre (11.5-14.5) % Plt Count (130-400) K/uL MPV (7.4-10.4) fL Immature Gran % (Auto) % Neut % (Auto) % Lymph % (Auto) % Sibley % (Auto) % Eos % (Auto) % Baso % (Auto) % Neut # (Auto) (1.4-6.5) K/uL Lymph # (Auto) (1.2-3.4) K/uL Sibley # (Auto) (0.11-0.59) K/uL Eos # (Auto) (0-0.5) K/uL Baso # (Auto) (0-0.2) K/uL Immature Gran # (Auto) (0.00-0.02) K/uL Sodium (136-145) mmol/L Potassium (3.5-5.1) mmol/L Chloride (98-107) mmol/L Carbon Dioxide (21-32) mmol/L Anion Gap (3-11) BUN (6-23) mg/dl Creatinine (0.6-1.4) mg/dl Est Cr Clr Drug Dosing ml/min Est GFR ( Amer) ml/min Est GFR (Non-Af Amer) ml/min BUN/Creatinine Ratio (10-20) Glucose (70-99(Fasting)) mg/dl POC Glucose 174 H 145 H 235 H (70-99) mg/dl Calcium (8.5-10.1) mg/dl Troponin I (0-0.04) ng/ml 06/30/21 Range/Units 21:02 WBC (4.8-10.8) K/uL RBC (4.7-6.1) M/uL Hgb (14.0-18.0) g/dL Hct (42-52) % MCV (80-100) fL MCH (25-34) pg MCHC (32-36) g/dL RDW Std Deviation (36.4-46.3) fL RDW Coeff of Deirdre (11.5-14.5) % Plt Count (130-400) K/uL MPV (7.4-10.4) fL Immature Gran % (Auto) % Neut % (Auto) % Lymph % (Auto) % Sibley % (Auto) % Eos % (Auto) % Baso % (Auto) % Neut # (Auto) (1.4-6.5) K/uL Lymph # (Auto) (1.2-3.4) K/uL S[place]y # (Auto) (0.11-0.59) K/uL Eos # (Auto) (0-0.5) K/uL Baso # (Auto) (0-0.2) K/uL Immature Gran # (Auto) (0.00-0.02) K/uL Sodium (136-145) mmol/L Potassium (3.5-5.1) mmol/L Chloride (98-107) mmol/L Carbon Dioxide (21-32) mmol/L Anion Gap (3-11) BUN (6-23) mg/dl Creatinine (0.6-1.4) mg/dl Est Cr Clr Drug Dosing ml/min Est GFR ( Amer) ml/min Est GFR (Non-Af Amer) ml/min BUN/Creatinine Ratio (10-20) Glucose (70-99(Fasting)) mg/dl POC Glucose (70-99) mg/dl Calcium (8.5-10.1) mg/dl Troponin I 0.07 H* (0-0.04) ng/ml PG Care Time/CCT Total # of Minutes Spent Total Time Spent with Patient: Total time spent is greater than 50% in coordination of care (as documented) at patient's floor/unit and/or counseling patient: Coding Level of Care Code 10350 Subseq Hosp Care Lvl 3 Diagnoses Acute respiratory failure with hypoxia J96.01 COVID-19 U07.1 S/P CABG (coronary artery bypass graft) Z95.1 DM (diabetes mellitus) E11.9 Chronic kidney disease, stage 3 N18.3 Hypertension I10 Gout M10.9 DVT prophylaxis Z29.9 History of CVA (cerebrovascular accident) Z86.73 HFrEF (heart failure with reduced ejection fraction) I50.20 ADIN (acute kidney injury) N17.9 Elevated troponin R77.8 CAD (coronary artery disease), [place] coronary artery I25.10
[2021-07-02] MEDS: HEPARIN SOD 5,000 UNIT/0.5 ML VIAL SQ SCH ×2 (05:56→17:33)
[2021-07-02 07:15] LABS: Basophils # (auto) 0.01 K/uL (0-0.2); Basophils % (auto) 0.1 %; Hematocrit (blood only) 41.4 % (42-52); Hemoglobin 13.7 g/dL (14.0-18.0); Immature Granulocytes # (auto) 0.05 K/uL (0.00-0.02); Immature Granulocytes % (auto) 0.3 %; Lymphocytes # (auto) 1.95 K/uL (1.2-3.4); Lymphocytes % (auto) 13.4 %; Mean Corpuscular Hgb Conc 33.1 g/dL (32-36); Mean Corpuscular Volume 90.6 fL (80-100); Mean Platelet Volume 12.3 fL (7.4-10.4); Monocytes # (auto) 1.17 K/uL (0.11-0.59); Monocytes % (auto) 8.1 %; Neutrophils # (auto) 11.34 K/uL (1.4-6.5); Neutrophils % (auto) 78.1 %; Platelet Count 183 K/uL (130-400); RDW Coefficient of Variation 14.3 % (11.5-14.5); RDW Standard Deviation 46.9 fL (36.4-46.3); Red Blood Count 4.57 M/uL (4.7-6.1); White Blood Count 14.52 K/uL (4.8-10.8)
[2021-07-02 07:38] LABS: Albumin Globulin Ratio 1.3 (0.9-2); Albumin Level 3.8 gm/dl (3.4-5.0); BUN Creatinine Ratio 23.4 (10-20); Bilirubin,Total 0.5 mg/dl (0.2-1.0); C Reactive Protein 4.12 mg/dl (0-0.5); Calcium 9.8 mg/dl (8.5-10.1); Creatinine Clr Calc Pharmacy 28.9 ml/min; Est GFR (Non-African American) 31.9 ml/min; Globulin 2.9 gm/dl (2.5-4.0); Magnesium 1.7 mg/dl (1.7-2.4); Phosphorus 3.3 mg/dl (2.5-4.9); Potassium 4.3 mmol/L (3.5-5.1); Total Protein 6.7 gm/dl (6.0-8.3)
[2021-07-02] MEDS: allopurinoL 100 MG TAB PO SCH (08:30)
[2021-07-02] MEDS: ASPIRIN 81 MG ECTAB PO SCH (08:30)
[2021-07-02] MEDS: METOPROLOL SUCC 50MG EXT REL TAB PO SCH (08:30)
[2021-07-02] MEDS: ATORVASTATIN 40 MG TAB PO SCH (08:30)
[2021-07-02] MEDS: dexAMETHasone 6 MG in SYRINGE 0 ML IV SCH (08:30)
[2021-07-02] MEDS: CLOPIDOGREL BISULFATE 75 MG TAB PO SCH (08:30)
[2021-07-02] MEDS: INSULIN HUMAN NPH SC SCH (08:31)
[2021-07-02] MEDS: INSULIN ASPART PER UNIT SC SCH ×4 (08:36→20:10)
--- NOTE | 2021-07-02 09:44 | Cardiology Consultation ---
Date of Consultation July 02, 2021 Assessment & Plan (1) HFrEF (heart failure with reduced ejection fraction): (2) Cardiomyopathy, ischemic: Mr. Richard is an 80 year old male with a history of Type 2 Diabetes Mellitus, Hypertension, Dyslipidemia, Prior CVA, Stage 3 CKD, Mild Aortic Stenosis, Moderate Mitral Regurgitation, Ischemic Cardiomyopathy, and CAD s/p CABG x 2 Vessels 10/09/2008 at [facility] who was admitted to [facility] on 06/30/21 with Acute Hypoxic Respiratory Failure secondary to SARS CoV 2 complicated by ADIN. As part of his workup, he was noted to have an elevated Troponin I of 0.05 ng/mL an admission with subsequent values of 0.06 and 0.07 ng/mL. His pro-BNP was minimally elevated at 101 pg/mL (normal is 0 to 100 pg/mL). Echocardiogram was ordered and showed reduced LV systolic function, LVEF 30% to 35% (which is a modest decline compared to 2010 study). Patient initially required 3L/min supplemental O2 on admission, however he has been weaned off of O2 earlier today and his O2 saturations are staying in the mid 90's. Patient continues to experience cough and his SOB has improved. Patient appears to be euvolemic at the present time. Patient has not experienced any angina pectoris or anginal equivalent symptoms, overt evidence CHF, nor has he had any symptoms suggestive of dysrhythmia. Patient has a known history of an ischemic cardiomyopathy and his modest reduction in LV systolic function could be related to his current acute illness. Recommend the followin. Continue Toprol XL 50 mg daily. 2. When renal function allows, begin Entresto 24-26 mg b.i.d.. 3. Continue Aspirin 81 mg daily. 4. Continue Atorvastatin 40 mg daily. 5. Continue Plavix 75 mg daily. 6. Use diuretics on an as needed basis. 7. 2 g low-sodium diet. 8. Monitor daily body weights. Monitor I&Os in the hospital. 9. We will plan on repeating an echocardiogram 3 months after he is on maximum tolerated dose of Entresto. 10. Follow-up with [facility] 1-2 weeks following discharge from the hospital, we will titrate Entresto at that time. (3) CAD (coronary artery disease), [place] coronary artery: CAD s/p CABG x 2 Vessels 10/09/2008 at [facility]. 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 -- Suspect minimal elevation in troponin I is related to demand ischemia secondary to acute illness and hypoxia. -- Continue medications as outlined above. -- No need to pursue further ischemic workup at this time. (4) Acute respiratory failure with hypoxia: Acute hypoxic respiratory failure secondary to SARS CoV 2. -- Management as per hospitalist service. (5) Right bundle branch block (RBBB) with left anterior fascicular block (LAFB): -- This Bifascicular Block (RBBB with LAFB) dates back to at least 10/06/2007. -- Patient also has a prolonged QT interval of 498 msec - avoid medications which can potentially cause prolonged QT interval. (6) Elevated troponin: -- Suspect minimal elevation in troponin I is related to demand ischemia secondary to acute illness and hypoxia. -- Continue medications as outlined above. -- No need to pursue further ischemic workup at this time. History of Present Illness Reason for Consultation: -- Worsened LV Systolic Function. Requesting Physician: Anil Reynolds MD Attending Physician: Bart Lopez MD History of Present Illness Mr. Richard is an 80 year old male with a history of Type 2 Diabetes Mellitus, Hypertension, Dyslipidemia, Prior CVA, Stage 3 CKD, Mild Aortic Stenosis, Moderate Mitral Regurgitation, Ischemic Cardiomyopathy, and CAD s/p CABG x 2 Vessels 10/09/2008 at [facility] who was admitted to [facility] on 06/30/21 with Acute Hypoxic Respiratory Failure secondary to SARS CoV 2 complicated by ADIN. As part of his workup, he was noted to have an elevated Troponin I of 0.05 ng/mL an admission with subsequent values of 0.06 and 0.07 ng/mL. His pro-BNP was minimally elevated at 101 pg/mL (normal is 0 to 100 pg/mL). Echocardiogram was ordered and showed reduced LV systolic function, LVEF 30% to 35% (which is a modest decline compared to 2010 study). Patient is currently being seen in the COVID unit in room 218-1. Patient initially required 3L/min supplemental O2 on admission, however he has been weaned off of O2 earlier today and his O2 saturations are staying in the mid 90's. Patient continues to experience cough and his SOB has improved. He denies any chest pain or angina pectoris at any time leading up to or during this hospitalization. He specifically denies any exertional chest pain, heaviness, tightness, pressure, or discomfort. He denies any exertional neck, jaw, back, or arm discomfort. His SOB is gradually improving. He denies any orthopnea or PND. He denies any palpitations, syncope, or near syncope. He denies any weight gain or peripheral edema. His Losartan is currently on hold due to ADIN. ECHOCARDIOGRAM 07/01/21: -- Normal LV size with moderately reduced LV systolic function. -- LVEF 30% to 35%, with inferior wall akinesis and moderate global hypokinesis of left ventricle. -- Moderate concentric LVH. -- Grade I LV diastolic dysfunction. -- Mild aortic valve stenosis. -- Moderate mitral regurgitation. -- Compared to 03/26/2010 Echo; Modest decline in LV systolic function, no change in focal wall motion abnormality, and mild increase in valvular disease. Allergies Allergy/AdvReac Type Severity Reaction Status Date / Time gemfibrozil Allergy Unknown Verified 06/30/21 10:47 lisinopril Allergy Unknown Verified 06/30/21 10:47 Home Medications Medication Instructions Recorded Confirmed Type blood sugar diagnostic ([employer] #100 ea 02/17/19 03/27/21 Rx Verio test strips) lancets 30 gauge (Atlas GeneticsTouch Delica #100 ea 02/17/19 03/27/21 Rx Lancets) pen needle, diabetic 32 gauge x #100 ea 02/17/19 03/27/21 Rx 5/32" (BD Ultra-Fine Candace Pen Needle) aspirin 81 mg tablet,delayed 81 mg PO QAM 01/14/20 06/30/21 History release metoprolol succinate 50 mg 50 mg PO QAM #90 tab 02/19/20 06/30/21 Rx tablet,extended release 24 hr blood-glucose meter (Atlas GeneticsTouch #1 ea 04/04/20 03/27/21 Rx Verio Meter) atorvastatin 40 mg tablet 40 mg PO QAM #90 tab 08/13/20 06/30/21 Rx clopidogrel 75 mg tablet 75 mg PO QAM #90 tab 08/13/20 06/30/21 Rx losartan 100 mg tablet 100 mg PO DAILY #90 tab 08/13/20 06/30/21 Rx allopurinol 100 mg tablet 100 mg PO QAM #90 tab 10/11/20 06/30/21 Rx insulin degludec 200 unit/mL (3 See Rx Instructions .ROUTE 06/24/21 06/30/21 Rx mL) subcutaneous pen (Tresiba .COMPLEX #18 ml FlexTouch U-200 insulin) Patient History Medical History Abdominal pain CAD (coronary artery disease), [place] coronary artery Chronic kidney disease, stage 3 Compression fracture of body of thoracic vertebra Constipation Diabetic nephropathy DM (diabetes mellitus) Gout HFrEF (heart failure with reduced ejection fraction) Hypertension Stroke Vitamin D deficiency Surgical History H/O colectomy History of total hip replacement Hx of detached retina repair Hx of hand surgery S/P CABG (coronary artery bypass graft) S/P partial colectomy Family History Son Anxiety Glioblastoma Seizure Father Diabetes Sister Rheumatoid arthritis Thyroid disease Denies family history of Ovarian cancer Prostate cancer Myocardial infarction Breast cancer Congenital kidney disease Colorectal cancer Social History Smoking Status: Former smoker Tobacco Type: Smokeless Tobacco (Dip or Chew) Hx Alcohol Use: No Hx Substance Use: No Preferred Language: German Communication Ability: Effective Visual Impairment: No Limitations Hearing Ability: Normal Clerk Telegraph Service Required: No Beliefs That Will Affect Care: None marital status: / Current Living Situation: Family Current Living Situation Comment: lives with son current occupational status: retired current occupation: [employer] Other Information That Helps Us Care for You: No other: 7 children, 5 still living Feels Safe at Home: Yes Safety Concerns: Feels Safe At This Time Childhood Exposure to Second-Hand Smoke: No Physical Activity Frequency Comment: limited Seatbelt Use: always Assistive Devices: Walker Review of Systems Review of Systems: + Sore throat, fever, and cough x 3 to 4 days leading up to admission. SARS CoV 2 + as of 06/30/21. He denies any headache or stiff neck. He denies any confusion or new focal neurologic symptoms. He denies any dysuria, urinary frequency, back or flank pain. He denies any nausea, vomiting, or diarrhea. Physical Exam Physical Exam: GENERAL: Patient in no acute distress. HEENT: Head is atraumatic, normocephalic. Sclerae anicteric. EOM's intact. Facies symmetric. No perioral cyanosis. NECK: No JVD. JVP is not elevated. Carotid upstrokes are + 2 bilaterally without obvious bruits. CHEST/LUNGS: Scattered bibasilar crackles. No wheezes. CVS: S1 and S2 are regular with a grade 1-2/6 basal systolic murmur heard best over the R 2nd ICS. No diastolic murmurs. No gallops or rubs. PMI is nondisplaced. No lifts, heaves, or thrills. No abdominal aortic or renal bruits. ABDOMINAL EXAM: Bowel sounds are present. No masses, organomegaly, or tenderness. EXTREMITIES: No clubbing or cyanosis. No edema. Intact radial pulses bilaterally. NEUROLOGIC EXAM: Patient is awake, alert, and oriented. Pleasant and co operative. Answers questions appropriately. Speech is clear. BLACK ASH WORKER: -- Normal sinus rhythm with IVCD. EKG 06/30/21: -- Sinus tachycardia at 109 bpm with RBBB and LAFB. -- LVH with repolarization abnormality. -- Cannot rule out septal infarct. -- Prolonged QTc interval at 498 msec. -- When compared to 01/14/2020 tracing; Minimal criteria for septal infarct are now present. Results & Data ([facility]) Vital Signs (Past 12 Hours) Vital Signs Temp Pulse Pulse Resp BP Pulse Ox 07/02/21 08:27 80 156/82 H 07/02/21 07:34 36.6 C 72 18 157/74 H 97 07/02/21 03:28 36.6 C 66 18 152/86 H 93 07/01/21 23:15 36.7 C 75 18 153/87 H 98 07/01/21 23:07 69 Laboratory Results Laboratory Results - last 24 hr 07/01/21 07/01/21 07/01/21 11:29 16:41 20:03 WBC RBC Hgb Hct MCV MCH MCHC RDW Std Deviation RDW Coeff of Deirdre Plt Count MPV Immature Gran % (Auto) Neut % (Auto) Lymph % (Auto) [place] % (Auto) Eos % (Auto) Baso % (Auto) Neut # (Auto) Lymph # (Auto) [place] # (Auto) Eos # (Auto) Baso # (Auto) Immature Gran # (Auto) Sodium Potassium Chloride Carbon Dioxide Anion Gap BUN Creatinine Est Cr Clr Drug Dosing Est GFR ( Amer) Est GFR (Non-Af Amer) BUN/Creatinine Ratio Glucose POC Glucose 121 H 122 H 138 H Calcium Phosphorus Magnesium Total Bilirubin AST ALT Alkaline Phosphatase C-Reactive Protein B-Natriuretic Peptide Total Protein Albumin Globulin Albumin/Globulin Ratio 07/02/21 07/02/21 07/02/21 06:57 06:57 06:57 WBC 14.52 H RBC 4.57 L Hgb 13.7 L Hct 41.4 L MCV 90.6 MCH 30.0 MCHC 33.1 RDW Std Deviation 46.9 H RDW Coeff of Deirdre 14.3 Plt Count 183 MPV 12.3 H Immature Gran % (Auto) 0.3 Neut % (Auto) 78.1 Lymph % (Auto) 13.4 [place] % (Auto) 8.1 Eos % (Auto) 0.0 Baso % (Auto) 0.1 Neut # (Auto) 11.34 H Lymph # (Auto) 1.95 [place] # (Auto) 1.17 H Eos # (Auto) 0.00 Baso # (Auto) 0.01 Immature Gran # (Auto) 0.05 H Sodium 136 Potassium 4.3 Chloride 104 Carbon Dioxide 24 Anion Gap 8 BUN 45 H Creatinine 1.92 H D Est Cr Clr Drug Dosing 28.9 Est GFR ( Amer) 37.0 Est GFR (Non-Af Amer) 31.9 BUN/Creatinine Ratio 23.4 H Glucose 92 POC Glucose Calcium 9.8 Phosphorus 3.3 Magnesium 1.7 Total Bilirubin 0.5 AST 38 ALT 21 Alkaline Phosphatase 67 C-Reactive Protein 4.12 H B-Natriuretic Peptide 101 H Total Protein 6.7 Albumin 3.8 Globulin 2.9 Albumin/Globulin Ratio 1.3 07/02/21 07:50 WBC RBC Hgb Hct MCV MCH MCHC RDW Std Deviation RDW Coeff of Deirdre Plt Count MPV Immature Gran % (Auto) Neut % (Auto) Lymph % (Auto) [place] % (Auto) Eos % (Auto) Baso % (Auto) Neut # (Auto) Lymph # (Auto) [place] # (Auto) Eos # (Auto) Baso # (Auto) Immature Gran # (Auto) Sodium Potassium Chloride Carbon Dioxide Anion Gap BUN Creatinine Est Cr Clr Drug Dosing Est GFR ( Amer) Est GFR (Non-Af Amer) BUN/Creatinine Ratio Glucose POC Glucose 101 H Calcium Phosphorus Magnesium Total Bilirubin AST ALT Alkaline Phosphatase C-Reactive Protein B-Natriuretic Peptide Total Protein Albumin Globulin Albumin/Globulin Ratio Diagnostic Findings CTA CHEST 06/30/21: Lungs and pleura: Atelectasis versus scarring is seen in the dependent portions of the lungs and there are dependent groundglass opacities. There is an intraparenchymal lymph node in the right major fissure. In addition, there is a 2 mm nodule in the left upper lobe (image 136 of series 4). Heart and pericardium: Heart size is normal. No pericardial effusion. Vessels: Severe atherosclerotic changes in the aorta and coronary arteries. Mediastinum and neeta: Unremarkable. Chest wall and lower neck: Unremarkable. Abdomen: Unremarkable. Bones: Unremarkable. IMPRESSION: 1. No evidence of pulmonary embolism. 2. Atelectasis is seen. Dependent ground glass opacities, which may represent atelectasis or pneumonia. Tiny pulmonary nodules as above. 3. Severe atherosclerotic changes. CXR 06/30/21: Multiple median sternotomy wires are seen including fractured top wire. Calcified aortic knob is seen. Lungs are underinflated but clear. No evidence of pleural effusion or pneumothorax. IMPRESSION: -- No acute chest disease. BILATERAL LE VENOUS DUPLEX DOPPLER 06/30/21: Currently there is normal compressibility of the deep venous system from the common femoral vein through the proximal calf veins. No current evidence of acute thrombosis is identified. Impression: No evidence of deep venous thrombus. Medications Administered Medications blood sugar diagnostic ([employer] Verio test strips) #100 ea 02/17/19 [Rx Confirmed 03/27/21] lancets 30 gauge (Atlas GeneticsTouch Delica Lancets) #100 ea 02/17/19 [Rx Confirmed 03/27/21] pen needle, diabetic 32 gauge x 5/32" (BD Ultra-Fine Candace Pen Needle) #100 ea 02/17/19 [Rx Confirmed 03/27/21] aspirin 81 mg tablet,delayed release 81 mg PO QAM 01/14/20 [History Confirmed 06/30/21] metoprolol succinate 50 mg tablet,extended release 24 hr 50 mg PO QAM #90 tab 02/19/20 [Rx Confirmed 06/30/21] blood-glucose meter (OneTouch Verio Meter) #1 ea 04/04/20 [Rx Confirmed 03/27/21] atorvastatin 40 mg tablet 40 mg PO QAM #90 tab 08/13/20 [Rx Confirmed 06/30/21] clopidogrel 75 mg tablet 75 mg PO QAM #90 tab 08/13/20 [Rx Confirmed 06/30/21] losartan 100 mg tablet 100 mg PO DAILY #90 tab 08/13/20 [Rx Confirmed 06/30/21] allopurinol 100 mg tablet 100 mg PO QAM #90 tab 10/11/20 [Rx Confirmed 06/30/21] insulin degludec 200 unit/mL (3 mL) subcutaneous pen (Tresiba FlexTouch U-200 insulin) See Rx Instructions .ROUTE .COMPLEX #18 ml 06/24/21 [Rx Confirmed 06/30/21] Home Medications Acetaminophen (Acetaminophen 325 Mg Tab) 650 mg PO Q4H PRN PRN Reason: Pain or Fever Stop: 07/30/21 15:29 Allopurinol (Allop[facility]ol 100 Mg Tab) [facility] Stop: 07/31/21 08:59 Last Admin: 07/02/21 08:30 Dose: 100 mg Documented by: Aspirin (Aspirin 81 Mg Ectab) [facility] [place] Stop: 07/31/21 08:59 Last Admin: 07/02/21 08:30 Dose: 81 mg Documented by: Atorvastatin Calcium (Atorvastatin 40 Mg Tab) 40 mg PO QAM [facility] Stop: 07/31/21 08:59 Last Admin: 07/02/21 08:30 Dose: 40 mg Documented by: Clopidogrel Bisulfate (Clopidogrel Bisulfate 75 Mg Tab) 75 mg PO QAM [facility] Stop: 07/31/21 08:59 Last Admin: 07/02/21 08:30 Dose: 75 mg Documented by: Dextrose (Dextrose 50% 50 Ml Syringe) 25 - 50 ml IV UD PRN; Protocol PRN Reason: Hypoglycemia Protocol Stop: 07/30/21 15:29 Glucagon (Glucagon For Inj 1 Mg Vial) 1 mg SQ UD PRN; Protocol PRN Reason: Hypoglycemia Protocol Stop: 07/30/21 15:29 Glucose (Glucose 10 Tabs/Tube) 4 - 8 tabs PO UD PRN; Protocol PRN Reason: Hypoglycemia Protocol Stop: 07/30/21 15:29 Glucose (Glucose 40% Gel 15 Gm Tube) 15 - 30 gm PO UD PRN; Protocol PRN Reason: Hypoglycemia Protocol Stop: 07/30/21 15:29 Heparin Sodium (Porcine) (Heparin Sod 5,000 Unit/0.5 Ml Vial) 5,000 units SQ Q12H [facility] Stop: 08/01/21 17:59 Dexamethasone 6 mg/ Syringe 1.5 mls @ 1 mls/min IV DAILY [facility] Stop: 07/10/21 15:59 Last Admin: 07/02/21 08:30 Dose: 1 mls/min Documented by: Insulin Aspart (Insulin Aspart Per Unit) 0 units SC ACHS [facility] Stop: 07/30/21 16:29 Last Admin: 07/02/21 08:36 Dose: 7 units Documented by: Insulin Glargine (Insulin Glargine Solostar 100 Units/Ml 3 Ml Pen) 0 units SC HS [facility]; Protocol Stop: 07/30/21 20:59 Last Admin: 07/01/21 20:10 Dose: 10 units Documented by: Insulin Human NPH (Insulin Human Nph) 15 units SC DAILY [facility] Stop: 07/31/21 08:59 Last Admin: 07/02/21 08:31 Dose: 15 units Documented by: Metoprolol Succinate (Metoprolol Succ 50mg Ext Rel Tab) 50 mg PO QAM [facility] Stop: 07/31/21 08:59 Last Admin: 07/02/21 08:30 Dose: 50 mg Documented by: Miscellaneous (Carbohydrates For Hypoglycemia ) 15 - 30 gm PO UD PRN PRN Reason: Hypoglycemia Protocol Stop: 07/30/21 15:29 Miscellaneous Information (Pharmacy Glycemic Mgmt Consult) 1 ea N/A UD PRN; Protocol PRN Reason: Consult Stop: 07/30/21 15:29 PG Care Time/CCT Total # of Minutes Spent Total Time Spent with Patient: Total time spent is greater than 50% in coordination of care (as documented) at patient's floor/unit and/or counseling patient:44 Coding Level of Care Code 59757 Initial Inpt Care Lvl 3 Diagnoses HFrEF (heart failure with reduced ejection fraction) I50.20 Cardiomyopathy, ischemic I25.5 CAD (coronary artery disease), [place] coronary artery I25.10 Acute respiratory failure with hypoxia J96.01 Right bundle branch block (RBBB) with left anterior fascicular block (LAFB) I45.2 Elevated troponin R77.8 Time Spent (min) 58
[2021-07-02] MEDS: POLYETHYLENE (MIRALAX) 17 GM PACK PO SCH (12:36)
--- NOTE | 2021-07-02 12:54 | Hospitalist Progress Note ---
Date of Service July 02, 2021 Assessment & Plan (1) Acute respiratory failure with hypoxia: Plan: Acute hypoxic respiratory failure 2/ Covid pneumonia Covid positive: 06/30/2021 Febrile on admission, tachycardic on admission First day of symptoms:Approximately 1 week prior to admission Vaccination status:Unvaccinated Admitting CXR: No acute chest disease. -CT angiogram chest negative for PE, dependent groundglass opacities which may represent atelectasis or pneumonia Venous Dopplers bilateral lower extremities negative CRP: Mildly elevated 3.87 -requiring 2LNC on admission, now improved, weaned to room air Continue dexamethasone x10-day course Remdesivir:Deferred due to symptom onset and renal function Baricitinib:Not indicated at time of admission, not requiring high flow -> Back to room air. Breathing well with mininal cough. (2) ADIN (acute kidney injury): Plan: Creatinine up to 2.0 on admission, received IV fluids in the ER Creatinine down to 1.6 which is his baseline -> Back to 1.9 today, but this seems near his baseline. (3) COVID-19: Plan: As above (4) HFrEF (heart failure with reduced ejection fraction): Plan: Echocardiogram performed for mildly elevated troponin on admission, now shows LVEF 30-35% which is at decreased from previous echo in 2010. He has a history of CAD status post CABG He has not followed with a skein washer in many years CABG was in 2007 Continue on Toprol-XL, holding home losartan for acute kidney injury as above Does not seem volume overloaded at this time Consult cardiology for further evaluation - Recs: 1) Start Entresto 2) F/u with o/p cardiology in 1-2 weeks. Repeat echo in 3 months. (5) Elevated troponin: Plan: Mildly elevated at 0.05/0.06/0.07, no chest pain ECG with RBBB and left anterior fascicular block, sinus rhythm and first-degree AV block-trifascicular block and with reduced EF Echocardiogram with wall motion abnormalities but appears similar to previous echo in 2009 Consulting cardiology as above (6) S/P CABG (coronary artery bypass graft): Plan: CAD with history of CABG in [address] [facility] [address] [facility] in [place] Troponin elevation suspect demand ischemia - Continue ASA/Plavix - Continue metoprolol - Continue Atorvastatin (7) CAD (coronary artery disease), [place] coronary artery: Plan: As above (8) DM (diabetes mellitus): Plan: Type 2 diabetes mellitus with nephropathy On insulin degludec [employer] Has not seen endocrine since 2019, does not follow BSG at home A1c 04/2021 6.5% which is well controlled Hold home insulin degludec 50 units subcu daily Transition to basal bolus insulin while inpatient Pharmacy consulted for additional management while on steroids for Covid-added NPH (9) Chronic kidney disease, stage 3: Plan: ADIN on admission, as above - BMP daily - Avoid nephrotoxins (10) Hypertension: Plan: Blood pressures are controlled to mildly elevated metoprolol, hold losartan for ADIN Patient on telemetry, may use IV metoprolol versus hydralazine as needed for additional blood pressure control (11) Gout: Plan: Gout No recent flare, on allopurinol (12) History of CVA (cerebrovascular accident): Plan: Continue aspirin Plavix, statin (13) DVT prophylaxis: Plan: Heparin SQ Admission and Anticipated Discharge Date Admission Date: June 30, 2021 Subjective Doing well today. No shortness of breath. Minimal cough. Reports no fevers/chills, chest pain, abdominal pain, nausea, or vomiting. Physical Exam Constitutional: WD/WN, vitals as above Eyes: EOM intact bilaterally; no conjunctival abnormality ENMT: external ear and nose normal, oropharynx normal Neck: trachea midline, no thyromegaly normal visual inspection Respiratory: normal respiratory effort, lungs clear to auscultation no respiratory distress Cardiovascular: RRR, no murmur, no edema Gastrointestinal (Abdomen): Inspection/Auscultation: abdomen normal to inspection; abdomen not distended Musculoskeletal: no cyanosis or clubbing, extremities motor strength 5/5 Skin: no rashes, warm and dry Neurologic: moves all extremities and awake Psychiatric: Orientation: alert, oriented to person and cooperative Results & Data Results & Data ([facility]) Vital Signs (Past 12 Hours) Vital Signs Temp Pulse Pulse Resp BP Pulse Ox 07/02/21 11:38 36.7 C 74 18 152/76 H 97 07/02/21 08:27 80 156/82 H 07/02/21 07:34 36.6 C 72 18 157/74 H 97 07/02/21 07:00 71 07/02/21 03:28 36.6 C 66 18 152/86 H 93 PG Care Time/CCT Total # of Minutes Spent Total Time Spent with Patient: Total time spent is greater than 50% in coordination of care (as documented) at patient's floor/unit and/or counseling patient: Coding Level of Care Code 23681 Subseq Hosp Care Lvl 2 Diagnoses Acute respiratory failure with hypoxia J96.01 ADIN (acute kidney injury) N17.9 COVID-19 U07.1 HFrEF (heart failure with reduced ejection fraction) I50.20 Elevated troponin R77.8 S/P CABG (coronary artery bypass graft) Z95.1 CAD (coronary artery disease), [place] coronary artery I25.10 DM (diabetes mellitus) E11.9 Chronic kidney disease, stage 3 N18.3 Hypertension I10 Gout M10.9 History of CVA (cerebrovascular accident) Z86.73 DVT prophylaxis Z29.9
[2021-07-02] MEDS: INSULIN GLARGINE SOLOSTAR 100 UNITS/ML 3 ML PEN SC SCH (20:10)
[2021-07-02] MEDS: VALSARTAN/SACUBITRIL 26/24MG TAB PO SCH (20:41)
[2021-07-03] MEDS: HEPARIN SOD 5,000 UNIT/0.5 ML VIAL SQ SCH (05:40)
[2021-07-03 07:04] LABS: Hematocrit (blood only) 42.8 % (42-52); Hemoglobin 14.3 g/dL (14.0-18.0); Mean Corpuscular Hemoglobin 30.4 pg (25-34); Mean Corpuscular Hgb Conc 33.4 g/dL (32-36); Mean Corpuscular Volume 90.9 fL (80-100); Mean Platelet Volume 12.1 fL (7.4-10.4); Platelet Count 203 K/uL (130-400); RDW Coefficient of Variation 14.2 % (11.5-14.5); RDW Standard Deviation 47.5 fL (36.4-46.3); Red Blood Count 4.71 M/uL (4.7-6.1); White Blood Count 15.28 K/uL (4.8-10.8)
[2021-07-03 08:01] LABS: BUN Creatinine Ratio 27.7 (10-20); Calcium 9.8 mg/dl (8.5-10.1); Creatinine Clr Calc Pharmacy 36.2 ml/min; Est GFR (African American) 47.9 ml/min; Est GFR (Non-African American) 41.4 ml/min; Magnesium 1.6 mg/dl (1.7-2.4); Potassium 4.3 mmol/L (3.5-5.1)
[2021-07-03] MEDS: dexAMETHasone 6 MG in SYRINGE 0 ML IV SCH (08:35)
[2021-07-03] MEDS: allopurinoL 100 MG TAB PO SCH (08:35)
[2021-07-03] MEDS: METOPROLOL SUCC 50MG EXT REL TAB PO SCH (08:35)
[2021-07-03] MEDS: ASPIRIN 81 MG ECTAB PO SCH (08:36)
[2021-07-03] MEDS: CLOPIDOGREL BISULFATE 75 MG TAB PO SCH (08:36)
[2021-07-03] MEDS: VALSARTAN/SACUBITRIL 26/24MG TAB PO SCH (08:36)
[2021-07-03] MEDS: POLYETHYLENE (MIRALAX) 17 GM PACK PO SCH (08:36)
[2021-07-03] MEDS: INSULIN HUMAN NPH SC SCH (08:37)
[2021-07-03] MEDS: ATORVASTATIN 40 MG TAB PO SCH (08:37)
[2021-07-03] MEDS: INSULIN ASPART PER UNIT SC SCH ×2 (08:43→12:15)
--- NOTE | 2021-07-03 09:46 | Pharmacy Report ---
Pharmacy Glycemic Short Note 2 - Date of Service July 03, 2021 - Glycemic Short BSG Results (Last 24 hours): 07/02/21 07/02/21 07/02/21 11:40 16:36 20:05 Glucose POC Glucose 95 146 H 147 H 07/03/21 07/03/21 06:41 07:43 Glucose 111 H POC Glucose 115 H OUTPATIENT ANTIDIABETIC REGIMEN: * Tresiba 50 units daily * A1c 6.5% 04/30/21 ASSESSMENT: 07/03/21: * Bud received 38 units of insulin yesterday with good glycemic control * Fasting BSG at goal. Continue current Lantus and NPH dose. * Patient remains on dexamethasone 6 mg IV q24h, therefore NPH will be continued Background * Type 2 diabetic admitted with COVID pneumonia. Started on steroids on admission, anticipate steroid induced hyperglycemia * Insulin degludec listed on med rec, however per notes patient has not seen Endo since 2019 and does not follow blood sugar at home * Will trial low dose NPH 0.2 units/kg with steroids, continue scale for HS for basal insulin PLAN FOR INPATIENT GLYCEMIC CONTROL: * Hold outpatient oral diabetes medications * Basal insulin * NPH 15 units SQ qam - administer with dexamethasone IV * Lantus 10-15 units HS * Bolus insulin * NovoLog per scale ACHS or Q6hrs while NPO * Goal Range: Low 110 mg/dL - High 140 mg/dL * Correction Factor: 20 mg/dL/unit * Nutritional / Prandial insulin per carb ratio of 1 unit per 7 grams CHO consumed PLAN FOR DISCHARGE: * A1c of 6.5% * Reasonable to continue current home regimen if patient denies frequent hypoglycemia. * Follow up with [facility] for diabetes management
--- NOTE | 2021-07-03 15:34 | Discharge Summary ---
Date of Service July 03, 2021 Admission HPI Per Admitting Provider Bud Richard is an 80-year-old male with a past medical history of CAD with CABG, diabetes with nephropathy, hypertension, CKD 3, and cervical radiculitis who presents with about 3-4days of fever, sore throat, and cough. COVID unvaccinated. Has had falls due to weakness at home. No head injury. Son has had URI symptoms as well. On admission was noted to have an elevated D-dimer, hypoxia requiring 3 L of nasal cannula oxygen. At bedside visit patient reports that he has had about 3 days of cough, fatigue. No nausea, vomiting, diarrhea, constipation. Denies palpitations, chest pain, chest pressure. Notes his son has been sick with a respiratory illness, has not been tested for Covid. Patient is not vaccinated. Reviewed medications, patient has been trying to avoid doctors offices did not get sick. Did have his insulin adjusted from 55 units to 50, takes no other diabetes medications. Has not been following with a documentation analyst, but has been taking his dual antiplatelet therapy and blood pressure medicines without missing any recent doses. Medical History: Reviewed Medications: Reviewed Surgical History: Reviewed Allergies: Reviewed Social History:Endorses to use, a pouch last him several weeks. Denies alcohol use. Denies medical marijuana use. Denies recreational drug use. Code Status:Surrogate decision maker would be one of his children, he says he does not have a preference or want to appoint 1 above the other. DNR/DNI, would not want to be intubated under any circumstances Principal Diagnosis Covid-19 Discharge Exam Constitutional WD/WN, vitals as above Eyes EOM intact bilaterally; no conjunctival abnormality ENMT external ear and nose normal, oropharynx normal Neck trachea midline, no thyromegaly normal visual inspection Respiratory normal respiratory effort, lungs clear to auscultation no respiratory distress Cardiovascular RRR, no murmur, no edema Gastrointestinal (Abdomen) Inspection/Auscultation: abdomen normal to inspection; abdomen not distended Musculoskeletal no cyanosis or clubbing, extremities motor strength 5/5 Skin no rashes, warm and dry Neurologic moves all extremities and awake Psychiatric Orientation: alert, oriented to person and cooperative Discharge Data Allergies Allergy/AdvReac Type Severity Reaction Status Date / Time gemfibrozil Allergy Unknown Verified 06/30/21 10:47 lisinopril Allergy Unknown Verified 06/30/21 10:47 Consultations 07/01/21 20:36 Consult Cardiology Routine Ordered Studies 06/30/21 10:36 CT angio chest PE protocol Stat 06/30/21 15:30 US venous doppler LE Routine Hospital Course (1) Acute respiratory failure with hypoxia: Acute hypoxic respiratory failure 06/18 Covid pneumonia Covid positive: 06/30/2021 Febrile on admission, tachycardic on admission First day of symptoms:Approximately 1 week prior to admission Vaccination status:Unvaccinated Admitting CXR: No acute chest disease. -CT angiogram chest negative for PE, dependent groundglass opacities which may represent atelectasis or pneumonia Venous Dopplers bilateral lower extremities negative CRP: Mildly elevated 3.87 -requiring 2LNC on admission, now improved, weaned to room air Continue dexamethasone x10-day course Remdesivir:Deferred due to symptom onset and renal function Baricitinib:Not indicated at time of admission, not requiring high flow -> Back to room air. Breathing well with minimal cough. Discharged off steroids as he is on room air. Discussed rehab ([facility] vs. SNF) with patient and daughter. Due to his Covid diagnosis, he would be waiting 8 more days for any placement. He and daughter (along with me) agree that an 8-day stay in the hospital will set him back more than he will get benefit from rehab stay. Discharged home with PT/OT. (2) ADIN (acute kidney injury): Creatinine up to 2.0 on admission, received IV fluids in the ER Creatinine down to 1.6 which is his baseline -> Back to 1.6 today, his baseline. (3) COVID-19: As above (4) HFrEF (heart failure with reduced ejection fraction): Echocardiogram performed for mildly elevated troponin on admission, now shows LVEF 30-35% which is at decreased from previous echo in 2009. He has a history of CAD status post CABG He has not followed with a documentation analyst in many years CABG was in 2007 Continue on Toprol-XL, holding home losartan for acute kidney injury as above Does not seem volume overloaded at this time Consult cardiology for further evaluation - Recs: 1) Started Entresto on discharge. 2) F/u with o/p cardiology in 1-2 weeks. Repeat echo in 3 months. Alerted cardiology to his discharge. Office will follow up with him. (5) Elevated troponin: Mildly elevated at 0.05/0.06/0.07, no chest pain ECG with RBBB and left anterior fascicular block, sinus rhythm and first-degree AV block-trifascicular block and with reduced EF Echocardiogram with wall motion abnormalities but appears similar to previous echo in 2009 Consulting cardiology as above (6) S/P CABG (coronary artery bypass graft): CAD with history of CABG in 2007 at [facility] in [place] Troponin elevation suspect demand ischemia - Continue ASA/Plavix - Continue metoprolol - Continue Atorvastatin (7) CAD (coronary artery disease), [place] coronary artery: As above (8) DM (diabetes mellitus): Type 2 diabetes mellitus with nephropathy 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 Has not seen endocrine since 2019, does not follow BSG at home A1c 04/2021 6.5% which is well controlled Hold home insulin degludec 50 units subcu daily Transition to basal bolus insulin while inpatient Pharmacy consulted for additional management while on steroids for Covid-added NPH (9) Chronic kidney disease, stage 3: ADIN on admission, as above - BMP daily - Avoid nephrotoxins (10) Hypertension: Blood pressures are controlled to mildly elevated metoprolol, hold losartan for ADIN Patient on telemetry, may use IV metoprolol versus hydralazine as needed for additional blood pressure control (11) Gout: Gout No recent flare, on allopurinol (12) History of CVA (cerebrovascular accident): Continue aspirin Plavix, statin (13) DVT prophylaxis: Heparin SQ Total Time Total Time Spent Total Time Spent (In Minutes): 35 Discharge Plan Discharge Items Patient Disposition: Home - Home Health Services Reason For Visit: AHRF, COVID+ Discharge Diagnosis: Covid-19 Activity: Resume your previous activity Non-emergency contact: Primary Care Provider and Debit Agent Call non-emergency contact if: your symptoms worsen Follow-up/Referrals: Ag Fragoso PA-C [Physician Surface Water Technician] - (Please see the Cardiology team in 1-2 weeks for a check-up of your heart.) Adonay Patel MD [Primary Care Provider] - (Dr. Patel is unavailable. Follow up appointment scheduled with Ashley Schafer PA-C.) Ashley Schafer PA-C [Physician Surface Water Technician] - 07/15/21 1:30 pm (Dr. Patel is unavailable. Please follow up with Ashley Schafer PA-C on Wednesday07/15/21 at 1:30 pm. Please arrive to the office at 1:15 pm for your appointment. If you are unable to keep this appointment, please call the office to reschedule at [phone].) Diet: Heart Healthy and Low Sodium (2gm) Addtl Attending Provider Instructions: Mr. Richard, You were admitted to the hospital with symptoms from Covid-19. You needed oxygen briefly, but were back to room air by the time you left the hospital. While you were here, you had an ultrasound of your heart which shows it is not squeezing as well as it previously was. We have adjusted your medications to help improve your heart squeeze, and would like you to see the heart doctors in 1-2 weeks to be sure you are doing better. Please see Ag Fragoso or Júnior Mcrae in the office. Pending Studies at Discharge: No Stand-Alone Forms: My [facility], Smoking Cessation Medications and DC Order Prescriptions: New Entresto 24-26 mg tablet 1 tab PO BID Qty: 60 RF: 0 Continued (DME) pen needle, diabetic [BD Ultra-Fine Candace Pen Needle] 32 gauge x 5/32" needle See Dose Instructions .ROUTE .MEDSUPPLY Qty: 100 RF: 3 metoprolol succinate 50 mg tablet extended release 24 hr 50 mg PO QAM Qty: 90 RF: 3 (DME) blood-glucose meter [OneTouch Verio Meter] Misc See Rx Instructions .ROUTE .MEDSUPPLY Qty: 1 RF: 0 allopurinol 100 mg tablet 100 mg PO QAM Qty: 90 RF: 3 Tresiba FlexTouch U-200 200 unit/mL (3 mL) insulin pen See Rx Instructions .ROUTE .COMPLEX Qty: 18 RF: 3 clopidogrel 75 mg tablet 75 mg PO QAM Qty: 90 RF: 3 atorvastatin 40 mg tablet 40 mg PO QAM Qty: 90 RF: 3 (DME) OneTouch Verio test strips strip See Dose Instructions .ROUTE .MEDSUPPLY Qty: 100 RF: 1 (DME) lancets [OneTouch Delica Lancets] 30 gauge misc See Dose Instructions .ROUTE .MEDSUPPLY Qty: 100 RF: 2 aspirin 81 mg tablet,delayed release (DR/EC) 81 mg PO QAM RF: 0 Discontinued losartan 100 mg tablet 100 mg PO DAILY Qty: 90 RF: 3 Discharge Orders: Discharge Order (Routine); Ordered 07/03/21 Ordered By: Anil Reynolds Admission Data Admit Date/Time: 06/30/21 11:55 Attending Provider: Anil Reynolds Admit Provider: Jossue Morrison Primary Care Provider: Adonay Patel Other Providers: Mason Mcrae ; [facility] ; [facility] Other Interventions: Discharge Summary Assessment (RN) Last Done: 07/03/21 12:19 Coding Level of Care Code D/C DAY MANAGEMENT >30 MINS Diagnoses Acute respiratory failure with hypoxia J96.01 ADIN (acute kidney injury) N17.9 COVID-19 U07.1 HFrEF (heart failure with reduced ejection fraction) I50.20 Elevated troponin R77.8 S/P CABG (coronary artery bypass graft) Z95.1 CAD (coronary artery disease), [place] coronary artery I25.10 DM (diabetes mellitus) E11.9 Chronic kidney disease, stage 3 N18.3 Hypertension I10 Gout M10.9 History of CVA (cerebrovascular accident) Z86.73 DVT prophylaxis Z29.9
== END 2021-07-03 14:40 | disposition home health service (06) | DRG 177 ==
LOC: ED 08:59 → SUATTDRO 11:55 → 2S 11:55

== ENCOUNTER 2021-07-12 00:11 | Inpatient (IN) ==
[2021-07-12] MEDS ORDERED: SODIUM CHLORIDE 0.9% 500 ML IV ONE ×2 (00:37→02:18)
--- NOTE | 2021-07-12 00:50 | Emergency Department Note ---
Impression & Plan Fall, Weakness, Acute renal failure Patient was evaluated by the [facility] for admission ED Provider Note NAME: LAVELL MCCURDY AGE: 80 SEX: M ARRIVES VIA: Ambulance INFORMANT: Patient ED PROVIDER(S): Sara Francis DO CHIEF COMPLAINT: Fall PLAN: Disposition: Admit to the [facility] Condition: Stable MEDICAL DECISION MAKING: This is an 80-year-old male patient who presents to the emergency department after suffering a fall at home. He is now complaining of right hip pain. Patient has significant generalized weakness. X-ray of the right hip/pelvis is unremarkable for fracture. He is now moving around more easily. Patient is slightly lethargic and quite weak on exam. He describes decreased oral intake. He does describe increased falls at home. I believe he will require admission to the hospital and social service evaluation. The patient's creatinine has doubled. He was receiving IV normal saline here in the emergency department. I discussed the case with the [facility] and they will evaluate for further management. Triage Nursing notes reviewed and agree with them. Prior medical records reviewed Vital Signs: reviewed and remarkable for low-grade fever Differential diagnosis: Sepsis, UTI, hypoglycemia, hyponatremia ER treatment provided: IV normal saline Diagnostics interpreted by me: ECG: Normal sinus rhythm at a rate of 98 with a right bundle branch block. The patient has significant left ventricular hypertrophy. This EKG is unchanged since an EKG on June 30. There is no obvious ischemia. There is no ectopy. Cardiac Monitoring: Normal sinus rhythm at 98 Laboratory studies: See below Imaging studies: As per my interpretation X-ray: No acute pulmonary infiltrates or consolidation Right hip/pelvis: Total hip arthroplasty on the right with good alignment and no obvious fracture or loosening. HPI: 80/M arrives for evaluation of fall. The patient describes having increasing weakness in the past couple of days. He went into the bathroom and was trying to transfer from his wheelchair to the toilet when he fell between the wheelchair and toilet and stooled himself. The family cleaned him up and put him into a recliner but he was complaining of right hip pain. He was unable to bear weight upon standing. The patient takes aspirin and Plavix. The patient had recently been admitted to the hospital with Covid. ROS: See above HPI for pertinent positives & negatives. A total of 10 systems reviewed and were otherwise negative. PAST MEDICAL HISTORY:See Below PAST SURGICAL HISTORY:See Below FAMILY HISTORY:See Below SOCIAL HISTORY:See Below HOME MEDICATIONS:See list ALLERGIES:See list VITALS:See Below PHYSICAL EXAMINATION: HEENT: Head - normocephalic and atraumatic. Pupils are equal, round, and reactive to light. Extraocular eye muscles are intact, and sclera are anicteric. Nose - moist nasal mucosa without discharge. Mouth - moist buccal mucosa. Oropharynx is nonerythematous and there is no tonsillar exudate or edema noted. Neck: Supple; no cervical lymphadenopathy or pain to palpation over the posterior cervical spine. Heart: Regular rate and rhythm. There is a normal S1 and S2 with no murmurs, clicks, or gallops appreciated. Lungs: Clear to auscultation bilaterally with no wheezes, rales, or rhonchi. Abdomen: Soft, mildly tender with palpation diffusely, nondistended, with good bowel sounds. There are no palpable pulsatile masses or hepatosplenomegaly. There is no guarding, rigidity, or rebound noted. Extremities: No evidence of cyanosis, clubbing, or edema. There are easily palpable peripheral pulses. Skin: warm and dry with poor turgor and no rashes. ED COURSE: Times/Reassessments: 0015: The patient was evaluated in room C4. A septic protocol was performed. An order was placed for continuous cardiac monitoring. The patient is in a normal sinus rhythm at a rate of 98. Twelve-lead EKG was obtained. Patient was bolused with 500 cc of normal saline solution and he was placed on a normal saline drip. I reviewed the results of the labs with the patient. Nursing staff did a bladder scan after the IV fluid bolus to obtain a urine specimen but there was only 97 cc of urine within the bladder. I believe the patient is somewhat dehydrated. He was given a second 500 cc bolus of saline and they will attempt another bladder scan here shortly and encouraged the patient to urinate so we can obtain a urinalysis. Sara Francis, DO Past Med/Surg History Medical History Abdominal pain CAD (coronary artery disease), [place] coronary artery Chronic kidney disease, stage 3 Compression fracture of body of thoracic vertebra Constipation Diabetic nephropathy DM (diabetes mellitus) Gout HFrEF (heart failure with reduced ejection fraction) Hypertension Stroke Vitamin D deficiency Surgical History H/O colectomy History of total hip replacement Hx of detached retina repair Hx of hand surgery S/P CABG (coronary artery bypass graft) S/P partial colectomy Family History Son Anxiety Glioblastoma Seizure Father Diabetes Sister Rheumatoid arthritis Thyroid disease Denies family history of Ovarian cancer Prostate cancer Myocardial infarction Breast cancer Congenital kidney disease Colorectal cancer Social History Smoking Status: Never smoker Tobacco Type: Smokeless Tobacco (Dip or Chew) Hx Alcohol Use: No Hx Substance Use: No Preferred Language: Bulgarian Communication Ability: Effective Visual Impairment: No Limitations Hearing Ability: Normal Construction Rep Required: No Beliefs That Will Affect Care: None marital status: / Current Living Situation: Family Current Living Situation Comment: lives in house, son resides in house with patient current occupational status: retired current occupation: [employer] other: 7 children, 5 still living Feels Safe at Home: Yes Safety Concerns: Feels Safe At This Time Childhood Exposure to Second-Hand Smoke: No Physical Activity Frequency Comment: limited Seatbelt Use: always Assistive Devices: Wheelchair Allergies Allergies Allergy/AdvReac Type Severity Reaction Status Date / Time gemfibrozil Allergy Unknown Unknown Verified 07/12/21 02:31 lisinopril Allergy Unknown Unknown Verified 07/12/21 02:31 Home Meds Home Medications Medication Instructions Recorded Confirmed aspirin 81 mg tablet,delayed 81 mg PO QAM 01/14/20 07/12/21 release ascorbic acid (vitamin C) 1,000 mg 1 g PO DAILY 07/12/21 07/12/21 tablet (Vitamin C) cholecalciferol (vitamin D3) 25 25 mcg PO DAILY 07/12/21 07/12/21 mcg (1,000 unit) tablet (Vitamin D3) multivitamin 1 tab PO DAILY 07/12/21 07/12/21 vitamin E 400 unit tablet 400 unit PO DAILY 07/12/21 07/12/21 Previous Rx's Medication Instructions Recorded blood sugar diagnostic (OneTouch #100 ea 02/17/19 Verio test strips) lancets 30 gauge (OneTouch Delica #100 ea 02/17/19 Lancets) pen needle, diabetic 32 gauge x #100 ea 02/17/19" (BD Ultra-Fine Candace Pen Needle) metoprolol succinate 50 mg 50 mg PO QAM #90 tab 02/19/20 tablet,extended release 24 hr blood-glucose meter (OneTouch #1 ea 04/04/20 Verio Meter) atorvastatin 40 mg tablet 40 mg PO QAM #90 tab 08/13/20 clopidogrel 75 mg tablet 75 mg PO QAM #90 tab 08/13/20 allopurinol 100 mg tablet 100 mg PO QAM #90 tab 10/11/20 insulin degludec 200 unit/mL (3 See Rx Instructions .ROUTE 06/24/21 mL) subcutaneous pen (Tresiba .COMPLEX #18 ml FlexTouch U-200 insulin) sacubitril 24 mg-valsartan 26 mg 1 tab PO BID #60 tab 07/02/21 tablet (Entresto) blood-glucose meter (OneTouch #1 ea 07/04/21 Verio Flex Start) ondansetron 4 mg disintegrating 4 mg PO Q6H PRN #20 tab 07/10/21 tablet Results & Data (ED) Vital Signs Vital Signs - 24 hr 07/12/21 08:30 07/12/21 15:11 Temperature 36.6 C Temperature Source Oral Pulse Rate [Right Finger] 72 Respiratory Rate 21 Respiratory Effort / Characteristics Non-Labored Spontaneous Respiratory Depth Normal Blood Pressure [Right Arm] 145/73 H Blood Pressure Mean [Right Arm] 97 Pulse Oximetry 96 Oxygen Delivery Method Room Air Laboratory Data Result diagrams: 07/12/21 00:41 07/12/21 01:56 Lab Results 07/12/21 07/12/21 07/12/21 Range/Units 00:41 00:41 00:41 WBC 12.64 H (4.8-10.8) K/uL RBC 4.64 L (4.7-6.1) M/uL Hgb 13.9 L (14.0-18.0) g/dL Hct 41.3 L (42-52) % MCV 89.0 (80-100) fL MCH 30.0 (25-34) pg MCHC 33.7 (32-36) g/dL RDW Std Deviation 47.2 H (36.4-46.3) fL RDW Coeff of Deirdre 14.5 (11.5-14.5) % Plt Count 199 (130-400) K/uL MPV 12.4 H (7.4-10.4) fL Immature Gran % (Auto) 0.3 % Neut % (Auto) 84.7 % Lymph % (Auto) 7.5 % Daggett % (Auto) 7.4 % Eos % (Auto) 0.0 % Baso % (Auto) 0.1 % Neut # (Auto) 10.70 H (1.4-6.5) K/uL Lymph # (Auto) 0.95 L (1.2-3.4) K/uL Daggett # (Auto) 0.94 H (0.11-0.59) K/uL Eos # (Auto) 0.00 (0-0.5) K/uL Baso # (Auto) 0.01 (0-0.2) K/uL Immature Gran # (Auto) 0.04 H (0.00-0.02) K/uL PT Cancelled INR Cancelled APTT Cancelled PTT Ratio Cancelled Sodium 133 L (136-145) mmol/L Potassium (3.5-5.1) mmol/L Chloride 101 (98-107) mmol/L Carbon Dioxide 23 (21-32) mmol/L Anion Gap 9 (3-11) BUN 41 H (6-23) mg/dl Creatinine 2.27 H (0.6-1.4) mg/dl Est Cr Clr Drug Dosing 24.2 ml/min Est GFR ( Amer) 30.2 ml/min Est GFR (Non-Af Amer) 26.1 ml/min BUN/Creatinine Ratio 18.1 (10-20) Glucose 121 H (70-99(Fasting)) mg/dl POC Glucose (70-99) mg/dl Lactate (0.4-2.0) mmol/L Calcium 9.4 (8.5-10.1) mg/dl Magnesium 1.9 (1.7-2.4) mg/dl Total Bilirubin 0.5 (0.2-1.0) mg/dl AST (13-39) U/L ALT 23 (7-52) U/L Alkaline Phosphatase 73 (34-104) U/L Total Protein 7.0 (6.0-8.3) gm/dl Albumin 3.7 (3.4-5.0) gm/dl Globulin 3.3 (2.5-4.0) gm/dl Albumin/Globulin Ratio 1.1 (0.9-2) Stl C. diff Tox B Gene (Neg) 07/12/21 07/12/21 07/12/21 Range/Units 00:41 01:56 01:56 WBC (4.8-10.8) K/uL RBC (4.7-6.1) M/uL Hgb (14.0-18.0) g/dL Hct (42-52) % MCV (80-100) fL MCH (25-34) pg MCHC (32-36) g/dL RDW Std Deviation (36.4-46.3) fL RDW Coeff of Deirdre (11.5-14.5) % Plt Count (130-400) K/uL MPV (7.4-10.4) fL Immature Gran % (Auto) % Neut % (Auto) % Lymph % (Auto) % [place] % (Auto) % Eos % (Auto) % Baso % (Auto) % Neut # (Auto) (1.4-6.5) K/uL Lymph # (Auto) (1.2-3.4) K/uL [place]gett # (Auto) (0.11-0.59) K/uL Eos # (Auto) (0-0.5) K/uL Baso # (Auto) (0-0.2) K/uL Immature Gran # (Auto) (0.00-0.02) K/uL PT 10.7 INR 1.1 APTT 28.2 PTT Ratio 1.1 Sodium (136-145) mmol/L Potassium 4.3 (3.5-5.1) mmol/L Chloride (98-107) mmol/L Carbon Dioxide (21-32) mmol/L Anion Gap (3-11) BUN (6-23) mg/dl Creatinine (0.6-1.4) mg/dl Est Cr Clr Drug Dosing ml/min Est GFR ( Amer) ml/min Est GFR (Non-Af Amer) ml/min BUN/Creatinine Ratio (10-20) Glucose (70-99(Fasting)) mg/dl POC Glucose (70-99) mg/dl Lactate 1.7 (0.4-2.0) mmol/L Calcium (8.5-10.1) mg/dl Magnesium (1.7-2.4) mg/dl Total Bilirubin (0.2-1.0) mg/dl AST 24 (13-39) U/L ALT (7-52) U/L Alkaline Phosphatase (34-104) U/L Total Protein (6.0-8.3) gm/dl Albumin (3.4-5.0) gm/dl Globulin (2.5-4.0) gm/dl Albumin/Globulin Ratio (0.9-2) Stl C. diff Tox B Gene (Neg) 07/12/21 07/12/21 07/12/21 Range/Units 10:00 10:21 11:30 WBC (4.8-10.8) K/uL RBC (4.7-6.1) M/uL Hgb (14.0-18.0) g/dL Hct (42-52) % MCV (80-100) fL MCH (25-34) pg MCHC (32-36) g/dL RDW Std Deviation (36.4-46.3) fL RDW Coeff of Deirdre (11.5-14.5) % Plt Count (130-400) K/uL MPV (7.4-10.4) fL Immature Gran % (Auto) % Neut % (Auto) % Lymph % (Auto) % [place] % (Auto) % Eos % (Auto) % Baso % (Auto) % Neut # (Auto) (1.4-6.5) K/uL Lymph # (Auto) (1.2-3.4) K/uL [place] # (Auto) (0.11-0.59) K/uL Eos # (Auto) (0-0.5) K/uL Baso # (Auto) (0-0.2) K/uL Immature Gran # (Auto) (0.00-0.02) K/uL PT INR APTT PTT Ratio Sodium (136-145) mmol/L Potassium (3.5-5.1) mmol/L Chloride (98-107) mmol/L Carbon Dioxide (21-32) mmol/L Anion Gap (3-11) BUN (6-23) mg/dl Creatinine (0.6-1.4) mg/dl Est Cr Clr Drug Dosing ml/min Est GFR ( Amer) ml/min Est GFR (Non-Af Amer) ml/min BUN/Creatinine Ratio (10-20) Glucose (70-99(Fasting)) mg/dl POC Glucose 40 L* 86 83 (70-99) mg/dl Lactate (0.4-2.0) mmol/L Calcium (8.5-10.1) mg/dl Magnesium (1.7-2.4) mg/dl Total Bilirubin (0.2-1.0) mg/dl AST (13-39) U/L ALT (7-52) U/L Alkaline Phosphatase (34-104) U/L Total Protein (6.0-8.3) gm/dl Albumin (3.4-5.0) gm/dl Globulin (2.5-4.0) gm/dl Albumin/Globulin Ratio (0.9-2) Stl C. diff Tox B Gene (Neg) 07/12/21 07/12/21 Range/Units 13:55 16:22 WBC (4.8-10.8) K/uL RBC (4.7-6.1) M/uL Hgb (14.0-18.0) g/dL Hct (42-52) % MCV (80-100) fL MCH (25-34) pg MCHC (32-36) g/dL RDW Std Deviation (36.4-46.3) fL RDW Coeff of Deirdre (11.5-14.5) % Plt Count (130-400) K/uL MPV (7.4-10.4) fL Immature Gran % (Auto) % Neut % (Auto) % Lymph % (Auto) % [place] % (Auto) % Eos % (Auto) % Baso % (Auto) % Neut # (Auto) (1.4-6.5) K/uL Lymph # (Auto) (1.2-3.4) K/uL [place] # (Auto) (0.11-0.59) K/uL Eos # (Auto) (0-0.5) K/uL Baso # (Auto) (0-0.2) K/uL Immature Gran # (Auto) (0.00-0.02) K/uL PT INR APTT PTT Ratio Sodium (136-145) mmol/L Potassium (3.5-5.1) mmol/L Chloride (98-107) mmol/L Carbon Dioxide (21-32) mmol/L Anion Gap (3-11) BUN (6-23) mg/dl Creatinine (0.6-1.4) mg/dl Est Cr Clr Drug Dosing ml/min Est GFR ( Amer) ml/min Est GFR (Non-Af Amer) ml/min BUN/Creatinine Ratio (10-20) Glucose (70-99(Fasting)) mg/dl POC Glucose 74 (70-99) mg/dl Lactate (0.4-2.0) mmol/L Calcium (8.5-10.1) mg/dl Magnesium (1.7-2.4) mg/dl Total Bilirubin (0.2-1.0) mg/dl AST (13-39) U/L ALT (7-52) U/L Alkaline Phosphatase (34-104) U/L Total Protein (6.0-8.3) gm/dl Albumin (3.4-5.0) gm/dl Globulin (2.5-4.0) gm/dl Albumin/Globulin Ratio (0.9-2) Stl C. diff Tox B Gene Negative Cdiff Gene (Neg) Administered Medications Allopurinol (Allopurinol 100 Mg Tab) 100 mg PO [facility] Stop: 08/11/21 08:59 Last Admin: 07/12/21 09:51 Dose: 100 mg Documented by: [id number] Aspirin (Aspirin 81 Mg Ectab) 81 mg PO [facility] Stop: 08/11/21 08:59 Last Admin: 07/12/21 09:50 Dose: 81 mg Documented by: [id number] Atorvastatin Calcium (Atorvastatin 40 Mg Tab) 40 mg PO [facility] Stop: 08/11/21 08:59 Last Admin: 07/12/21 09:51 Dose: 40 mg Documented by: [id number] Clopidogrel Bisulfate (Clopidogrel Bisulfate 75 Mg Tab) 75 mg PO [facility] Stop: 08/11/21 08:59 Last Admin: 07/12/21 09:51 Dose: 75 mg Documented by: [id number] Heparin Sodium (Porcine) (Heparin Sod 5,000 Unit/0.5 Ml Vial) 5,000 units SQ Q12 [facility] Stop: 08/11/21 08:59 Last Admin: 07/12/21 20:32 Dose: 5,000 units Documented by: [id number] Admin: 07/12/21 09:51 Dose: 5,000 units Documented by: [id number] Insulin Aspart (Insulin Aspart Per Unit) 0 units SC ACHS [facility] Stop: 08/11/21 07:38 Last Admin: 07/12/21 20:31 Dose: Not Given Documented by: [id number] Admin: 07/12/21 17:59 Dose: Not Given Documented by: [id number] Admin: 07/12/21 12:40 Dose: Not Given Documented by: [id number] Admin: 07/12/21 09:49 Dose: Not Given Documented by: [id number] Insulin Glargine (Insulin Glargine Solostar 100 Units/Ml 3 Ml Pen) 0 units SC HS [facility]; Protocol Stop: 08/11/21 20:59 Last Admin: 07/12/21 20:31 Dose: Not Given Documented by: [id number] Metoprolol Succinate (Metoprolol Succ 50mg Ext Rel Tab) 50 mg PO QAM [facility] Stop: 08/11/21 08:59 Last Admin: 07/12/21 09:51 Dose: 50 mg Documented by: [id number] Miscellaneous (Carbohydrates For Hypoglycemia ) 15 - 30 gm PO UD PRN PRN Reason: Hypoglycemia Protocol Stop: 08/11/21 07:38 Last Admin: 07/12/21 20:25 Dose: 15 gm Documented by: [id number] Admin: 07/12/21 20:10 Dose: 30 gm Documented by: [id number] Admin: 07/12/21 10:15 Dose: 30 gm Documented by: [id number] Discontinued Medications Sodium Chloride (Nss) 500 mls @ 999 mls/hr IV .Q31M ONE Stop: 07/12/21 01:07 Last Infusion: 07/12/21 01:36 Dose: 0 mls/hr Documented by: [id number] Admin: 07/12/21 00:51 Dose: 999 mls/hr Documented by: [id number] Sodium Chloride (Nss) 500 mls @ 125 mls/hr IV .Q4H [facility] Stop: 08/11/21 00:44 Last Infusion: 02/26/22 09:41 Dose: 0 mls/hr Documented by: [id number] Admin: 07/12/21 05:00 Dose: 125 mls/hr Documented by: [id number] Infusion: 07/12/21 04:00 Dose: 0 mls/hr Documented by: [id number] Admin: 07/12/21 02:06 Dose: 125 mls/hr Documented by: [id number] Sodium Chloride (Nss) 500 mls @ 999 mls/hr IV .Q31M ONE Stop: 07/12/21 02:48 Last Infusion: 07/12/21 02:53 Dose: 0 mls/hr Documented by: [id number] Admin: 07/12/21 02:36 Dose: 999 mls/hr Documented by: [id number] Lactated Ringer's (Lr) 1,000 mls @ 80 mls/hr IV .[id number] [facility] Stop: 07/12/21 20:29 Last Infusion: 07/12/21 18:27 Dose: 0 mls/hr Documented by: [id number] Admin: 07/12/21 09:48 Dose: 80 mls/hr Documented by: [id number] Discharge Plan Visit Data Chief Complaint: Fall Stated Complaint: Fall ED Provider: Sara Francis Discharge Problem: Fall, Weakness, Acute renal failure Patient Disposition: Admitted As Inpatient Discharge Instructions Interventions: ED Discharge Assessment Last Done: 07/12/21 07:17 Discharge Problem: Fall Qualifiers: Encounter type: initial encounter Qualified Code(s): W19.XXXA - Unspecified fall, initial encounter Acute renal failure Qualifiers: Acute renal failure type: unspecified Qualified Code(s): N17.9 - Acute kidney failure, unspecified
[2021-07-12 00:58] LABS: Basophils # (auto) 0.01 K/uL (0-0.2); Basophils % (auto) 0.1 %; Hematocrit (blood only) 41.3 % (42-52); Hemoglobin 13.9 g/dL (14.0-18.0); Immature Granulocytes # (auto) 0.04 K/uL (0.00-0.02); Immature Granulocytes % (auto) 0.3 %; Lymphocytes # (auto) 0.95 K/uL (1.2-3.4); Lymphocytes % (auto) 7.5 %; Mean Corpuscular Hgb Conc 33.7 g/dL (32-36); Mean Platelet Volume 12.4 fL (7.4-10.4); Monocytes # (auto) 0.94 K/uL (0.11-0.59); Monocytes % (auto) 7.4 %; Neutrophils % (auto) 84.7 %; Platelet Count 199 K/uL (130-400); RDW Coefficient of Variation 14.5 % (11.5-14.5); RDW Standard Deviation 47.2 fL (36.4-46.3); Red Blood Count 4.64 M/uL (4.7-6.1); White Blood Count 12.64 K/uL (4.8-10.8)
[2021-07-12 01:28] LABS: Albumin Globulin Ratio 1.1 (0.9-2); Albumin Level 3.7 gm/dl (3.4-5.0); BUN Creatinine Ratio 18.1 (10-20); Bilirubin,Total 0.5 mg/dl (0.2-1.0); Calcium 9.4 mg/dl (8.5-10.1); Creatinine Clr Calc Pharmacy 24.2 ml/min; Est GFR (African American) 30.2 ml/min; Est GFR (Non-African American) 26.1 ml/min; Globulin 3.3 gm/dl (2.5-4.0); Magnesium 1.9 mg/dl (1.7-2.4)
[2021-07-12] MEDS: SODIUM CHLORIDE 0.9% 500 ML IV SCH ×2 (02:06→05:00)
[2021-07-12 02:23] LABS: INR 1.1 (0.9-1.1); Partial Thromboplastin Ratio 1.1; Partial Thromboplastin Time 28.2 Seconds (21.0-31.0); Prothrombin Time 10.7 Seconds (9.0-12.0)
[2021-07-12 02:28] LABS: Potassium 4.3 mmol/L (3.5-5.1)
--- NOTE | 2021-07-12 04:28 | History & Physical Report ---
Date of Service July 12, 2021 Assessment & Plan (1) Fall: Plan: Fall at home. Per record review, patient with frequent falls at home. -PT/OT evaluation. Patient may benefit from brief rehab placement (2) Chronic kidney disease, stage 3: Plan: ADIN on CKD. Baseline Cr 1.6, now 2.27 -IVF started in ER, continue -Repeat chemistry -Hold Entresto -Avoid nephrotoxic agents (3) Cardiomyopathy, ischemic: Plan: Compensated -Continue metoprolol -Hold Entresto - ADIN, borderline BP, recently started medication (4) CAD (coronary artery disease), [place] coronary artery: Plan: Chronic. No CP -Continue ASA, Plavix, Atorvastatin, Metoprolol -Holding Entresto (5) Hypertension: Plan: Blood pressure borderline low -Continue metoprolol as BP allows -Hold Entresto (6) Gout: Plan: Chronic. Controlled -Continue Allopurinol (7) DM (diabetes mellitus): Plan: Appropriate control. YGG=[id number] -Conitnue insulin degludec -ISS (8) COVID-19: Plan: Dx positive on 06/30/21. No symptoms presently. Adequate oxygenation -Continue isolation x 20 days after positive test per hospital protocol Plan: F/E/N - LR at 80mL/hr x 1 liter, monitor electrolytes, AHA/CC diet as tolerated Ppx - Heparin Code - DNR/DNI per record review Dispo - observation to medical History of Present Illness Chief Complaint: fall Primary Care Provider: Adonay Patel MD 80yo male with history of CAD, CKD III with baseline cr of 1.6, DM, HTN, Ischemic cardiomyopathy presenting after a fall from home. Patient was recently hospitalized from 06/30/21 - 07/03/21 with Covid-19 PNA and hypoxia. He returned home. This evening he fell in his bathroom and was found between the toilet and bathtub. Complaining of right hip pain on arrival. Now resolved No complaints at present ER Course: NSS Allergies Allergy/AdvReac Type Severity Reaction Status Date / Time gemfibrozil Allergy Unknown Unknown Verified 07/12/21 02:31 lisinopril Allergy Unknown Unknown Verified 07/12/21 02:31 Home Medications Medication Instructions Recorded Confirmed Type blood sugar diagnostic (WineSimpleuch #100 ea 02/17/19 07/12/21 Rx Verio test strips) lancets 30 gauge (OneTouch Delica #100 ea 02/17/19 07/12/21 Rx Lancets) pen needle, diabetic 32 gauge x #100 ea 02/17/19 07/12/21 Rx 5/32" (BD Ultra-Fine Candace Pen Needle) aspirin 81 mg tablet,delayed 81 mg PO QAM 01/14/20 07/12/21 History release metoprolol succinate 50 mg 50 mg PO QAM #90 tab 02/19/20 07/12/21 Rx tablet,extended release 24 hr blood-glucose meter (OneTouch #1 ea 04/04/20 07/12/21 Rx Verio Meter) atorvastatin 40 mg tablet 40 mg PO QAM #90 tab 08/13/20 07/12/21 Rx clopidogrel 75 mg tablet 75 mg PO QAM #90 tab 08/13/20 07/12/21 Rx allopurinol 100 mg tablet 100 mg PO QAM #90 tab 10/11/20 07/12/21 Rx insulin degludec 200 unit/mL (3 See Rx Instructions .ROUTE 06/24/21 07/12/21 Rx mL) subcutaneous pen (Tresiba .COMPLEX #18 ml FlexTouch U-200 insulin) sacubitril 24 mg-valsartan 26 mg 1 tab PO BID #60 tab 07/02/21 07/12/21 Rx tablet (Entresto) blood-glucose meter (OneTouch #1 ea 07/04/21 07/12/21 Rx Verio Flex Start) ondansetron 4 mg disintegrating 4 mg PO Q6H PRN #20 tab 07/10/21 07/12/21 Rx tablet ascorbic acid (vitamin C) 1,000 mg 1 g PO DAILY 07/12/21 07/12/21 History tablet (Vitamin C) cholecalciferol (vitamin D3) 25 25 mcg PO DAILY 07/12/21 07/12/21 History mcg (1,000 unit) tablet (Vitamin D3) multivitamin 1 tab PO DAILY 07/12/21 07/12/21 History vitamin E 400 unit tablet 400 unit PO DAILY 07/12/21 07/12/21 History Past Med/Surg History Medical History Abdominal pain CAD (coronary artery disease), [place] coronary artery Chronic kidney disease, stage 3 Compression fracture of body of thoracic vertebra Constipation Diabetic nephropathy DM (diabetes mellitus) Gout HFrEF (heart failure with reduced ejection fraction) Hypertension Stroke Vitamin D deficiency Surgical History H/O colectomy History of total hip replacement Hx of detached retina repair Hx of hand surgery S/P CABG (coronary artery bypass graft) S/P partial colectomy Family History Son Anxiety Glioblastoma Seizure Father Diabetes Sister Rheumatoid arthritis Thyroid disease Denies family history of Ovarian cancer Prostate cancer Myocardial infarction Breast cancer Congenital kidney disease Colorectal cancer Social History Smoking Status: Never smoker Tobacco Type: Smokeless Tobacco (Dip or Chew) Hx Alcohol Use: No Hx Substance Use: No Preferred Language: [place] Communication Ability: Effective Visual Impairment: No Limitations Hearing Ability: Normal Hearing Aid Repair Technician Required: No Beliefs That Will Affect Care: None marital status: / Current Living Situation: Family Current Living Situation Comment: lives with son current occupational status: retired current occupation: [employer] other: 7 children, 5 still living Feels Safe at Home: Yes Childhood Exposure to Second-Hand Smoke: No Physical Activity Frequency Comment: limited Seatbelt Use: always Assistive Devices: Walker Review of Systems Review of Systems: All systems reviewed & are unremarkable except as noted in HPI & below Physical Exam Physical Exam: General: patient sleeping, arousable, follows commands, NAD Skin: warm, dry, intact, no rashes or lesions HEENT: NC/AT, PERRL, EOMI, anicteric sclera, conjunctiva without injection, external ear normal to inspection and nontender, nares patent, dry mucus membranes, dentition intact, no oropharyngeal lesions, neck supple, trachea midline, no LAD, no thyromegaly, no JVD Heart: +S1/S2, regular, no m/r/g Lungs: equal air entry bilaterally, no rales/rhonchi/wheezes Abd: +BS, soft, NT/ND, no masses/organomegaly/ascites Ext: warm, 2+ pulses in UE/LE bilaterally, no clubbing/cyanosis or edema Neuro: nonfocal, patient AA&O x 4, speech intact, no facial droop, moving all extremities on command with equal strength 5/5 Results & Data Results & Data ([facility]) Vital Signs (Past 12 Hours) Vital Signs Temp Pulse Resp BP BP Pulse Ox 07/12/21 04:00 37 C 16 97/51 L 95 07/12/21 03:00 16 95 07/12/21 02:00 83 29 H 07/12/21 01:45 84 25 H 07/12/21 01:30 85 15 89/54 L 90 07/12/21 01:15 88 28 H 93 07/12/21 01:01 92 H 32 H 112/57 L 95 07/12/21 01:00 90 32 H 94 07/12/21 00:45 97 H 26 H 07/12/21 00:31 94 07/12/21 00:30 99 H 31 H 86/54 L 91 07/12/21 00:20 37.6 C H 98 H 16 101/67 93 07/12/21 00:16 104 H 30 H 91 Laboratory Results Laboratory Results WBC 12.64 K/uL (4.8-10.8) H 07/12/21 00:41 RBC 4.64 M/uL (4.7-6.1) L 07/12/21 00:41 Hgb 13.9 g/dL (14.0-18.0) L 07/12/21 00:41 Hct 41.3 % (42-52) L 07/12/21 00:41 MCV 89.0 fL (80-100) 07/12/21 00:41 MCH 30.0 pg (25-34) 07/12/21 00:41 MCHC 33.7 g/dL (32-36) 07/12/21 00:41 RDW Std Deviation 47.2 fL (36.4-46.3) H 07/12/21 00:41 RDW Coeff of Deirdre 14.5 % (11.5-14.5) 07/12/21 00:41 Plt Count 199 K/uL (130-400) 07/12/21 00:41 MPV 12.4 fL (7.4-10.4) H 07/12/21 00:41 Immature Gran % (Auto) 0.3 % 07/12/21 00:41 Neut % (Auto) 84.7 % 07/12/21 00:41 Lymph % (Auto) 7.5 % 07/12/21 00:41 [place] % (Auto) 7.4 % 07/12/21 00:41 Eos % (Auto) 0.0 % 07/12/21 00:41 Baso % (Auto) 0.1 % 07/12/21 00:41 Neut # (Auto) 10.70 K/uL (1.4-6.5) H 07/12/21 00:41 Lymph # (Auto) 0.95 K/uL (1.2-3.4) L 07/12/21 00:41 [place] # (Auto) 0.94 K/uL (0.11-0.59) H 07/12/21 00:41 Eos # (Auto) 0.00 K/uL (0-0.5) 07/12/21 00:41 Baso # (Auto) 0.01 K/uL (0-0.2) 07/12/21 00:41 Immature Gran # (Auto) 0.04 K/uL (0.00-0.02) H 07/12/21 00:41 PT 10.7 Seconds (9.0-12.0) 07/12/21 01:56 INR 1.1 (0.9-1.1) 07/12/21 01:56 APTT 28.2 Seconds (21.0-31.0) 07/12/21 01:56 PTT Ratio 1.1 07/12/21 01:56 Sodium 133 mmol/L (136-145) L 07/12/21 00:41 Potassium 4.3 mmol/L (3.5-5.1) 07/12/21 01:56 Chloride 101 mmol/L (98-107) 07/12/21 00:41 Carbon Dioxide 23 mmol/L (21-32) 07/12/21 00:41 Anion Gap 9 (3-11) 07/12/21 00:41 BUN 41 mg/dl (6-23) H 07/12/21 00:41 Creatinine 2.27 mg/dl (0.6-1.4) H 07/12/21 00:41 Est Cr Clr Drug Dosing 24.2 ml/min 07/12/21 00:41 Est GFR ( Amer) 30.2 ml/min 07/12/21 00:41 Est GFR (Non-Af Amer) 26.1 ml/min 07/12/21 00:41 BUN/Creatinine Ratio 18.1 (10-20) 07/12/21 00:41 Glucose 121 mg/dl (70-99(Fasting)) H 07/12/21 00:41 Lactate 1.7 mmol/L (0.4-2.0) 07/12/21 00:41 Calcium 9.4 mg/dl (8.5-10.1) 07/12/21 00:41 Magnesium 1.9 mg/dl (1.7-2.4) 07/12/21 00:41 Total Bilirubin 0.5 mg/dl (0.2-1.0) 07/12/21 00:41 AST 24 U/L (13-39) 07/12/21 01:56 ALT 23 U/L (7-52) 07/12/21 00:41 Alkaline Phosphatase 73 U/L (34-104) 07/12/21 00:41 Total Protein 7.0 gm/dl (6.0-8.3) 07/12/21 00:41 Albumin 3.7 gm/dl (3.4-5.0) 07/12/21 00:41 Globulin 3.3 gm/dl (2.5-4.0) 07/12/21 00:41 Albumin/Globulin Ratio 1.1 (0.9-2) 07/12/21 00:41 Diagnostic Findings X-ray right hip obtained - read pending Code Status & VTE Plan VTE Prophylaxis Plan VTE Prophylaxis will be ordered: Yes PG Care Time/CCT Total # of Minutes Spent Total Time Spent with Patient: Total time spent is greater than 50% in coordination of care (as documented) at patient's floor/unit and/or counseling patient: Coding Level of Care Code INT OBSERVATION CARE 70M LVL 3 Diagnoses Cardiomyopathy, ischemic I25.5 CAD (coronary artery disease), [place] coronary artery I25.10 Hypertension I10 Gout M10.9 DM (diabetes mellitus) E11.9 Chronic kidney disease, stage 3 N18.3 COVID-19 U07.1 Fall W19.XXXA
[2021-07-12] MEDS ORDERED: DEXTROSE 50% 50 ML SYRINGE IV PRN (07:39)
[2021-07-12] MEDS ORDERED: GLUCAGON FOR INJ 1 MG VIAL SQ PRN (07:39)
[2021-07-12] MEDS ORDERED: NON-FORMULARY MEDICATION (Insulin Degludec [Tresiba Flextouch U-200] 200 unit/mL (3 mL) in SCH (07:39)
[2021-07-12] MEDS ORDERED: GLUCOSE 10 TABS/TUBE PO PRN (07:39)
[2021-07-12] MEDS ORDERED: DOCUSATE SODIUM 100 MG CAP PO PRN (07:39)
[2021-07-12] MEDS ORDERED: GLUCOSE 40% GEL 15 GM TUBE PO PRN (07:39)
[2021-07-12] MEDS ORDERED: ONDANSETRON 4 MG OD TAB PO PRN (07:39)
[2021-07-12] MEDS ORDERED: ACETAMINOPHEN 325 MG TAB PO PRN (07:39)
[2021-07-12] MEDS ORDERED: LACTATED RINGER'S 1,000 ML IV SCH (08:00)
--- NOTE | 2021-07-12 08:28 | Hospitalist Progress Note ---
Date of Service July 12, 2021 Assessment & Plan (1) Fall: Plan: Fall at home. Per record review, patient with frequent falls at home. Identified fractures or significant traumatic injury -PT/OT evaluation. Patient may benefit from brief rehab placement (2) Chronic kidney disease, stage 3: Plan: ADIN on CKD. Baseline Cr 1.6, now 2.27 -IVF started in ER, continue complete this liter of lactated Ringer's -Hold Entresto -Avoid nephrotoxic agents (3) Cardiomyopathy, ischemic: Plan: Compensated -Continue metoprolol -Hold Entresto - ADIN, borderline BP, recently started medication (4) CAD (coronary artery disease), [place] coronary artery: Plan: Chronic. No CP -Continue ASA, Plavix, Atorvastatin, Metoprolol -Holding Entresto (5) Hypertension: Plan: Blood pressure borderline low -Continue metoprolol as BP allows -Hold Entresto (6) Gout: Plan: Chronic. Controlled -Continue Allopurinol (7) DM (diabetes mellitus): Plan: Appropriate control. FFG=[id number] -Conitnue insulin degludec -ISS (8) COVID-19: Plan: Dx positive on 06/30/21. No symptoms presently. Adequate oxygenation -Continue isolation x 11 days after positive test per hospital protocol Plan: Ppx - Heparin Code - DNR/DNI per record review Transition to admission as the patient may require subacute rehab placement Admission and Anticipated Discharge Date Admission Date: July 12, 2021 Subjective Cornelia Richard is a pleasant he has some discomfort to his left side from where he fell but no evidence of contusions or fractures Review of Systems Review of Systems: Mild distress and fatigue may be some mild confusion no headache, no visual changes no speech or swallowing issues no chest pain, pressure or palpitations no shortness of breath, cough or wheezes no abdominal pain, nausea or vomiting, diarrhea or constipation no dysuria, hematuria or frequency Comfort to his left hip and knee although no bruising or contusions noted no back pain, CVA tenderness or radicular pain no bruising, bleeding or rashes no focal signs of weakness or numbness or altered sensation and is very weak likely will need some rehabilitation no complaints of anxiety or depression.. Physical Exam Physical Exam: The patient appeared slightly underweight with a BMI of 22 weakened and debilitated Vital signs as documented. Head exam is normocephalic atraumatic Neck is without JVD, thyromegaly, or carotid bruits. Lungs are clear to auscultation, no focal loss of breath sounds Cardiac exam, Rhythm is regular.. No murmurs, rubs or gallops. Abdominal exam reveals normal bowel sounds, soft non tender, no masses Extremities are nonedematous and both pedal pulses are present he is tender to his left hip and knee although no bruises are seen no fractures were identified Neurologic exam is alert and oriented, no focal loss of strength or sensation some slight memory loss globally is weak Skin is without bruises or rashes Psychologically is without concerns for anxiety or depression.. Results & Data Results & Data ([facility]) Vital Signs (Past 12 Hours) Vital Signs Temp Pulse Pulse Resp BP BP BP 07/12/21 07:40 97.9 F 72 18 110/62 07/12/21 07:00 61 9 L 107/51 L 07/12/21 06:30 64 24 98/53 L 07/12/21 06:00 64 23 103/56 L 07/12/21 05:30 60 22 100/63 07/12/21 05:00 67 21 106/59 L 07/12/21 04:30 76 23 123/60 07/12/21 04:00 98.6 F 69 22 101/52 L 97/51 L 07/12/21 03:30 72 25 H 109/57 L 07/12/21 03:00 16 07/12/21 02:00 83 29 H 07/12/21 01:45 84 25 H 07/12/21 01:30 85 15 89/54 L 07/12/21 01:15 88 28 H 07/12/21 01:01 92 H 32 H 112/57 L 07/12/21 01:00 90 32 H 07/12/21 00:45 97 H 26 H 07/12/21 00:31 07/12/21 00:30 99 H 31 H 86/54 L 07/12/21 00:20 99.7 F H 98 H 16 101/67 07/12/21 00:16 104 H 30 H Pulse Ox 07/12/21 07:40 95 07/12/21 07:00 93 07/12/21 06:30 07/12/21 06:00 95 07/12/21 05:30 92 07/12/21 05:00 94 07/12/21 04:30 95 07/12/21 04:00 95 07/12/21 03:30 07/12/21 03:00 95 07/12/21 02:00 07/12/21 01:45 07/12/21 01:30 90 07/12/21 01:15 93 07/12/21 01:01 95 07/12/21 01:00 94 07/12/21 00:45 07/12/21 00:31 94 07/12/21 00:30 91 07/12/21 00:20 93 07/12/21 00:16 91 PG Care Time/CCT Total # of Minutes Spent Total Time Spent with Patient: Total time spent is greater than 50% in coordination of care (as documented) at patient's floor/unit and/or counseling patient: Coding Level of Care Code 21933 Subseq Hosp Care Lvl 2 Diagnoses Fall W19.XXXA Chronic kidney disease, stage 3 N18.3 Cardiomyopathy, ischemic I25.5 CAD (coronary artery disease), [place] coronary artery I25.10 Hypertension I10 Gout M10.9 DM (diabetes mellitus) E11.9 COVID-19 U07.1
--- NOTE | 2021-07-12 08:53 | XRay Report ---
XR hip RT 2V w pelvis CLINICAL HISTORY: Right hip pain following fall. COMPARISON: CT of the abdomen and pelvis March 18, 2008. FINDINGS: Sacroiliac joints and symphysis pubis are intact. Alignment of the total right hip arthrop lasty is anatomic. No periprosthetic fracture. No acute fracture is identified within the pelvis or h ips. Pelvic calcifications favor phleboliths. Surgical staple line projects over the pelvis. Left low er quadrant surgical clips are present. IMPRESSION: 1. No acute fracture within the pelvis or hips. 2. Anatomic alignment of the total right hip arthroplasty. No periprosthetic fracture. ACT 112: Negative or not required by law. Electronically signed by: Qasim Cuevas M.D. 07/12/2021 8:51 AM
--- NOTE | 2021-07-12 08:54 | XRay Report ---
XR chest 1V portable CLINICAL HISTORY: SEPSIS COMPARISON STUDY: Chest radiograph and chest CT June 30, 2011. FINDINGS: Median sternotomy wires are noted. There are mediastinal surgical clips. Cardiomediastinal silhouette is stable. There is no pneumothorax or pleural effusion. Linear left basilar opacity refle cts atelectasis or scarring. No consolidation or evidence for pulmonary edema. IMPRESSION: No acute cardiopulmonary findings. No change in appearance of the chest. ACT 112: Negative or not required by law. Electronically signed by: Qasim Cuevas M.D. 07/12/2021 8:53 AM
[2021-07-12] MEDS: INSULIN ASPART PER UNIT SC SCH ×4 (09:49→20:31)
[2021-07-12] MEDS: ASPIRIN 81 MG ECTAB PO SCH (09:50)
[2021-07-12] MEDS: ATORVASTATIN 40 MG TAB PO SCH (09:51)
[2021-07-12] MEDS: allopurinoL 100 MG TAB PO SCH (09:51)
[2021-07-12] MEDS: CLOPIDOGREL BISULFATE 75 MG TAB PO SCH (09:51)
[2021-07-12] MEDS: METOPROLOL SUCC 50MG EXT REL TAB PO SCH (09:51)
[2021-07-12] MEDS: HEPARIN SOD 5,000 UNIT/0.5 ML VIAL SQ SCH ×2 (09:51→20:32)
[2021-07-12] MEDS: CARBOHYDRATES FOR HYPOGLYCEMIA PO PRN ×3 (10:15→20:25)
--- NOTE | 2021-07-12 10:33 | Electrocardiogram Report ---
Test Reason : Blood Pressure : / mmHG Vent. Rate : 098 BPM Atrial Rate : 098 BPM P-R Int : 176 ms QRS Dur : 126 ms QT Int : 372 ms P-R-T Axes : 019 -73 094 degrees QTc Int : 474 ms Normal sinus rhythm Right bundle branch block Left anterior fascicular block Bifascicular block Left ventricular hypertrophy with repolarization abnormality Abnormal ECG When compared with ECG of 30-JUN-2021 09:11, No significant change Confirmed by Adonay Shaikh ([id number]) on 07/12/2021 10:32:47 AM Referred By: REFERRED SELF Confirmed By:Adonay Shaikh
[2021-07-12] MEDS: INSULIN GLARGINE SOLOSTAR 100 UNITS/ML 3 ML PEN SC SCH (20:31)
[2021-07-13 08:42] LABS: Hematocrit (blood only) 36.6 % (42-52); Hemoglobin 12.3 g/dL (14.0-18.0); Mean Corpuscular Hemoglobin 30.1 pg (25-34); Mean Corpuscular Hgb Conc 33.6 g/dL (32-36); Mean Corpuscular Volume 89.5 fL (80-100); Mean Platelet Volume 11.5 fL (7.4-10.4); Platelet Count 164 K/uL (130-400); RDW Coefficient of Variation 14.4 % (11.5-14.5); RDW Standard Deviation 47.5 fL (36.4-46.3); Red Blood Count 4.09 M/uL (4.7-6.1); White Blood Count 9.98 K/uL (4.8-10.8)
[2021-07-13] MEDS: INSULIN ASPART PER UNIT SC SCH ×4 (08:54→20:46)
[2021-07-13] MEDS: ASPIRIN 81 MG ECTAB PO SCH (09:02)
[2021-07-13] MEDS: METOPROLOL SUCC 50MG EXT REL TAB PO SCH (09:02)
[2021-07-13] MEDS: CLOPIDOGREL BISULFATE 75 MG TAB PO SCH (09:02)
[2021-07-13] MEDS: ATORVASTATIN 40 MG TAB PO SCH (09:03)
[2021-07-13] MEDS: HEPARIN SOD 5,000 UNIT/0.5 ML VIAL SQ SCH ×2 (09:03→21:32)
[2021-07-13] MEDS: allopurinoL 100 MG TAB PO SCH (09:03)
[2021-07-13 09:05] LABS: Basophils # (auto) 0.01 K/uL (0-0.2); Basophils % (auto) 0.1 %; Eosinophils # (auto) 0.01 K/uL (0-0.5); Eosinophils % (auto) 0.1 %; Immature Granulocytes # (auto) 0.01 K/uL (0.00-0.02); Immature Granulocytes % (auto) 0.1 %; Lymphocytes # (auto) 1.16 K/uL (1.2-3.4); Lymphocytes % (auto) 11.6 %; Neutrophils # (auto) 7.99 K/uL (1.4-6.5); Neutrophils % (auto) 80.1 %
[2021-07-13 09:16] LABS: Calcium 8.1 mg/dl (8.5-10.1); Creatinine Clr Calc Pharmacy 40.4 ml/min; Est GFR (African American) 55.7 ml/min; Potassium 4.3 mmol/L (3.5-5.1)
--- NOTE | 2021-07-13 20:27 | Hospitalist Progress Note ---
Date of Service July 13, 2021 Assessment & Plan (1) Fall: Plan: Fall at home. Per record review, patient with frequent falls at home. Identified fractures or significant traumatic injury -PT/OT evaluation. Patient may benefit from brief rehab placement Placement on hold due to covid diagnosis. (2) Chronic kidney disease, stage 3: Plan: ADIN on CKD. Baseline Cr 1.6, now 2.27 -IVF started in ER, continue complete this liter of lactated Ringer's -Hold Entresto -Avoid nephrotoxic agents (3) Cardiomyopathy, ischemic: Plan: Compensated -Continue metoprolol -Hold Entresto - ADIN, borderline BP, recently started medication (4) CAD (coronary artery disease), [place] coronary artery: Plan: Chronic. No CP -Continue ASA, Plavix, Atorvastatin, Metoprolol -Holding Entresto (5) Hypertension: Plan: Blood pressure borderline low -Continue metoprolol as BP allows -Hold Entresto (6) Gout: Plan: Chronic. Controlled -Continue Allopurinol (7) DM (diabetes mellitus): Plan: Appropriate control. GDL=[id number] -Conitnue insulin degludec -ISS (8) COVID-19: Plan: Dx positive on 06/30/21. No symptoms presently. Adequate oxygenation -Continue isolation x 11 days after positive test per hospital protocol Plan: Ppx - Heparin Code - DNR/DNI per record review Admission and Anticipated Discharge Date Admission Date: July 12, 2021 Subjective Patient reports he has lost his ability for taste and smell since last Wednesday. Patient currently denies any cough. Nurse reports he has not been eating today. Review of Systems Review of Systems: All systems reviewed & are unremarkable except as noted in HPI & below Physical Exam Physical Exam: Patient eating his dinner. Vital signs as documented. Head exam is normocephalic atraumatic Neck is without JVD, thyromegaly, or carotid bruits. Lungs are clear to auscultation, no focal loss of breath sounds Cardiac exam, Rhythm is regular.. No murmurs, rubs or gallops. Abdominal exam reveals normal bowel sounds, soft non tender, no masses Extremities are nonedematous and both pedal pulses are present he is tender to his left hip and knee although no bruises are seen no fractures were identified Neurologic exam is alert and oriented, no focal loss of strength or sensation so me slight memory loss globally is weak Skin is without bruises or rashes Psychologically is without concerns for anxiety or depression. Results & Data Results & Data ([facility]) Vital Signs (Past 12 Hours) Vital Signs Temp Pulse Resp BP Pulse Ox 07/13/21 16:00 37.7 C H 87 20 158/80 H 95 PG Care Time/CCT Total # of Minutes Spent Total Time Spent with Patient: Total time spent is greater than 50% in coordination of care (as documented) at patient's floor/unit and/or counseling patient: Coding Level of Care Code 23670 Subseq Hosp Care Lvl 2 Diagnoses Fall W19.XXXA Chronic kidney disease, stage 3 N18.3 Cardiomyopathy, ischemic I25.5 CAD (coronary artery disease), [place] coronary artery I25.10 Hypertension I10 Gout M10.9 DM (diabetes mellitus) E11.9 COVID-19 U07.1 Time Spent (min) 25
[2021-07-13] MEDS: INSULIN GLARGINE SOLOSTAR 100 UNITS/ML 3 ML PEN SC SCH (20:46)
[2021-07-14] MEDS: INSULIN ASPART PER UNIT SC SCH ×4 (08:08→21:57)
[2021-07-14] MEDS: ASPIRIN 81 MG ECTAB PO SCH (08:09)
[2021-07-14] MEDS: HEPARIN SOD 5,000 UNIT/0.5 ML VIAL SQ SCH ×2 (08:09→21:28)
[2021-07-14] MEDS: allopurinoL 100 MG TAB PO SCH (08:09)
[2021-07-14] MEDS: CLOPIDOGREL BISULFATE 75 MG TAB PO SCH (08:09)
[2021-07-14] MEDS: ATORVASTATIN 40 MG TAB PO SCH (08:09)
[2021-07-14] MEDS: METOPROLOL SUCC 50MG EXT REL TAB PO SCH (08:09)
[2021-07-14 10:24] LABS: Basophils # (auto) 0.01 K/uL (0-0.2); Basophils % (auto) 0.1 %; Eosinophils # (auto) 0.01 K/uL (0-0.5); Eosinophils % (auto) 0.1 %; Hemoglobin 11.9 g/dL (14.0-18.0); Immature Granulocytes # (auto) 0.02 K/uL (0.00-0.02); Immature Granulocytes % (auto) 0.2 %; Lymphocytes # (auto) 1.33 K/uL (1.2-3.4); Lymphocytes % (auto) 14.1 %; Mean Corpuscular Hemoglobin 29.5 pg (25-34); Mean Corpuscular Hgb Conc 33.1 g/dL (32-36); Mean Corpuscular Volume 89.1 fL (80-100); Mean Platelet Volume 11.6 fL (7.4-10.4); Monocytes # (auto) 0.75 K/uL (0.11-0.59); Monocytes % (auto) 7.9 %; Neutrophils # (auto) 7.32 K/uL (1.4-6.5); Neutrophils % (auto) 77.6 %; Platelet Count 164 K/uL (130-400); RDW Coefficient of Variation 14.4 % (11.5-14.5); RDW Standard Deviation 46.9 fL (36.4-46.3); Red Blood Count 4.04 M/uL (4.7-6.1); White Blood Count 9.44 K/uL (4.8-10.8)
[2021-07-14 10:59] LABS: Albumin Globulin Ratio 1.1 (0.9-2); BUN Creatinine Ratio 17.4 (10-20); Bilirubin,Total 0.6 mg/dl (0.2-1.0); Calcium 9.2 mg/dl (8.5-10.1); Est GFR (African American) 58.2 ml/min; Est GFR (Non-African American) 50.2 ml/min; Globulin 2.7 gm/dl (2.5-4.0); Potassium 4.3 mmol/L (3.5-5.1); Total Protein 5.7 gm/dl (6.0-8.3)
[2021-07-14 18:42] LABS: Appearance Urine Clear (Clear); Bacteria Urine Automated 1+ (Negative); Bilirubin Urine Negative (Negative); Blood Urine Negative (Negative); Color Urine Yellow; Glucose Urine UA Negative (Negative); Ketones Urine Trace (Negative); Leukocyte Esterase Urine Negative (Negative); Nitrite Urine Negative (Negative); Protein Urine 2+ (Negative); RBC Urine Automated 0-4 /hpf (0-4); Specific Gravity Urine 1.017 (1.000-1.030); Urobilinogen Urine Negative (Negative)
--- NOTE | 2021-07-14 21:20 | Hospitalist Progress Note ---
Date of Service July 14, 2021 Assessment & Plan (1) Fever: Plan: Fever of unknown origen. will check blood culture sputum culture, urine culture will hold discharge, (2) COVID-19: Plan: Dx positive on 06/30/21. No symptoms presently. Adequate oxygenation -Continue isolation x 11 days after positive test per hospital protocol (3) Fall: Plan: Fall at home. Per record review, patient with frequent falls at home. Identified fractures or significant traumatic injury -PT/OT evaluation. Patient may benefit from brief rehab placement Placement on hold due to covid diagnosis. (4) Chronic kidney disease, stage 3: Plan: ADIN on CKD. Baseline Cr 1.6, now 2.27 -IVF started in ER, continue complete this liter of lactated Ringer's -Hold Entresto -Avoid nephrotoxic agents (5) Cardiomyopathy, ischemic: Plan: Compensated -Continue metoprolol -Hold Entresto - ADIN, borderline BP, recently started medication (6) CAD (coronary artery disease), [place] coronary artery: Plan: Chronic. No CP -Continue ASA, Plavix, Atorvastatin, Metoprolol -Holding Entresto (7) Hypertension: Plan: Blood pressure borderline low -Continue metoprolol as BP allows -Hold Entresto (8) Gout: Plan: Chronic. Controlled -Continue Allopurinol (9) DM (diabetes mellitus): Plan: Appropriate control. UKJ=[id number] -Conitnue insulin degludec -ISS Plan: Ppx - Heparin Code - DNR/DNI per record review Admission and Anticipated Discharge Date Admission Date: July 12, 2021 Subjective Patient reports no new symptoms. Review of Systems Review of Systems: All systems reviewed & are unremarkable except as noted in HPI & below Physical Exam Physical Exam: lying bed comfortable. Vital signs as documented. Head exam is normocephalic atraumatic Neck is without JVD, thyromegaly, or carotid bruits. Lungs are clear to auscultation, no focal loss of breath sounds Cardiac exam, Rhythm is regular.. No murmurs, rubs or gallops. Abdominal exam reveals normal bowel sounds, soft non tender, no masses Extremities are nonedematous and both pedal pulses are present he is tender to his left hip and knee although no bruises are seen no fractures were identified Neurologic exam is alert and oriented, no focal loss of strength or sensation some slight memory loss globally is weak Skin is without bruises or rashes Psychologically is without concerns for anxiety or depression. PG Care Time/CCT Total # of Minutes Spent Total Time Spent with Patient: Total time spent is greater than 50% in coordination of care (as documented) at patient's floor/unit and/or counseling patient: Coding Level of Care Code 89526 Subseq Hosp Care Lvl 2 Diagnoses Fall W19.XXXA Chronic kidney disease, stage 3 N18.3 Cardiomyopathy, ischemic I25.5 CAD (coronary artery disease), [place] coronary artery I25.10 Hypertension I10 Gout M10.9 DM (diabetes mellitus) E11.9 COVID-19 U07.1 Fever R50.9 Time Spent (min) 25
[2021-07-14] MEDS: INSULIN GLARGINE SOLOSTAR 100 UNITS/ML 3 ML PEN SC SCH (21:57)
[2021-07-15] MEDS: INSULIN ASPART PER UNIT SC SCH ×5 (07:49→20:59)
[2021-07-15 08:09] LABS: Hemoglobin 11.9 g/dL (14.0-18.0); Mean Corpuscular Hemoglobin 30.1 pg (25-34); Mean Corpuscular Volume 88.4 fL (80-100); Mean Platelet Volume 11.9 fL (7.4-10.4); Platelet Count 165 K/uL (130-400); RDW Coefficient of Variation 14.2 % (11.5-14.5); RDW Standard Deviation 46.1 fL (36.4-46.3); Red Blood Count 3.96 M/uL (4.7-6.1); White Blood Count 8.34 K/uL (4.8-10.8)
[2021-07-15 08:21] LABS: Partial Thromboplastin Ratio 1.3; Partial Thromboplastin Time 33.2 Seconds (21.0-31.0)
--- NOTE | 2021-07-15 09:03 | XRay Report ---
XR chest 1V portable CLINICAL HISTORY: fever. COMPARISON STUDY: 07/12/2021 TECHNIQUE: 1 view of the chest FINDINGS: Single frontal view of the chest demonstrates the cardiomediastinal silhouette to be within normal li mits. The patient is status post cardiothoracic surgery. There is a decreased inspiratory effort with elevation of the hemidiaphragms and crowding of the bronchovascular markings at the lung bases and c entrally. The lungs are clear of alveolar opacities. Linear scarring is seen at the left lung base. T here is no evidence for pleural effusion. There is no evidence for vascular congestion. There is no a cute osseous pathology. IMPRESSION: 1. Compared to previous examination, there is a decreased inspiratory effort with otherwise no acute chest disease. ACT 112: Negative or not required by law. Electronically signed by: Joshua Shay M.D. 07/15/2021 9:02 AM
[2021-07-15 09:20] LABS: Basophils # (auto) 0.01 K/uL (0-0.2); Basophils % (auto) 0.1 %; Eosinophils # (auto) 0.08 K/uL (0-0.5); Immature Granulocytes # (auto) 0.02 K/uL (0.00-0.02); Immature Granulocytes % (auto) 0.2 %; Lymphocytes # (auto) 1.25 K/uL (1.2-3.4); Lymphocytes % (auto) 14.9 %; Monocytes % (auto) 8.3 %; Neutrophils # (auto) 6.33 K/uL (1.4-6.5); Neutrophils % (auto) 75.5 %
[2021-07-15] MEDS: HEPARIN SOD 5,000 UNIT/0.5 ML VIAL SQ SCH ×2 (09:50→20:45)
[2021-07-15] MEDS: METOPROLOL SUCC 50MG EXT REL TAB PO SCH (09:50)
[2021-07-15] MEDS: CLOPIDOGREL BISULFATE 75 MG TAB PO SCH (09:50)
[2021-07-15] MEDS: allopurinoL 100 MG TAB PO SCH (09:50)
[2021-07-15] MEDS: ATORVASTATIN 40 MG TAB PO SCH (09:50)
[2021-07-15] MEDS: ASPIRIN 81 MG ECTAB PO SCH (09:50)
--- NOTE | 2021-07-15 20:57 | Hospitalist Progress Note ---
Date of Service July 15, 2021 Assessment & Plan (1) Fever: Plan: Patient just had a small spike of 100.2F will check blood culture sputum culture, urine culture Urine did show some bacteruria, however, no other signs of sepsis, or fever since. Will hold antibiotics unless fever returns. Plan to discharge tomorrow, auth for placement pending. (2) COVID-19: Plan: Dx positive on 06/30/21. No symptoms presently. Adequate oxygenation -of (3) Fall: Plan: Fall at home. Per record review, patient with frequent falls at home. Identified fractures or significant traumatic injury -PT/OT evaluation. Patient may benefit from brief rehab placement Placement on hold due to covid diagnosis. (4) Chronic kidney disease, stage 3: Plan: ADIN on CKD. Baseline Cr 1.6, now 2.27 -IVF started in ER, continue complete this liter of lactated Ringer's -Hold Entresto -Avoid nephrotoxic agents (5) Cardiomyopathy, ischemic: Plan: Compensated -Continue metoprolol -Hold Entresto - ADIN, borderline BP, recently started medication (6) CAD (coronary artery disease), [place] coronary artery: Plan: Chronic. No CP -Continue ASA, Plavix, Atorvastatin, Metoprolol -Holding Entresto (7) Hypertension: Plan: Blood pressure borderline low -Continue metoprolol as BP allows -Hold Entresto (8) Gout: Plan: Chronic. Controlled -Continue Allopurinol (9) DM (diabetes mellitus): Plan: Appropriate control. AFS=127 -Conitnue insulin degludec -ISS Plan: Ppx - Heparin Code - DNR/DNI per record review Admission and Anticipated Discharge Date Admission Date: July 12, 2021 Subjective Patient reports feeling better. Daughter at bedside and is updated. Review of Systems Review of Systems: All systems reviewed & are unremarkable except as noted in HPI & below Physical Exam Physical Exam: lying bed comfortable. Vital signs as documented. Head exam is normocephalic atraumatic Neck is without JVD, thyromegaly, or carotid bruits. Lungs are clear to auscultation, no focal loss of breath sounds Cardiac exam, Rhythm is regular.. No murmurs, rubs or gallops. Abdominal exam reveals normal bowel sounds, soft non tender, no masses Extremities are nonedematous and both pedal pulses are present Neurologic exam is alert and oriented, no focal loss of strength or sensation some slight memory loss globally is weak Skin is without bruises or rashes Psychologically is without concerns for anxiety or depression. Results & Data Results & Data ([facility]) Vital Signs (Past 12 Hours) Vital Signs Temp Pulse Resp BP Pulse Ox 07/15/21 13:28 36.5 C 89 18 135/74 98 PG Care Time/CCT Total # of Minutes Spent Total Time Spent with Patient: Total time spent is greater than 50% in coordination of care (as documented) at patient's floor/unit and/or counseling patient: Coding Level of Care Code 20105 Subseq Hosp Care Lvl 2 Diagnoses Fever R50.9 COVID-19 U07.1 Fall W19.XXXA Chronic kidney disease, stage 3 N18.3 Cardiomyopathy, ischemic I25.5 CAD (coronary artery disease), [place] coronary artery I25.10 Hypertension I10 Gout M10.9 DM (diabetes mellitus) E11.9
[2021-07-15] MEDS: INSULIN GLARGINE SOLOSTAR 100 UNITS/ML 3 ML PEN SC SCH (21:33)
[2021-07-16] MEDS: CARBOHYDRATES FOR HYPOGLYCEMIA PO PRN (04:05)
[2021-07-16 07:04] LABS: Partial Thromboplastin Ratio 1.1; Partial Thromboplastin Time 30.4 Seconds (21.0-31.0)
[2021-07-16 07:34] LABS: Calcium 8.5 mg/dl (8.5-10.1); Creatinine Clr Calc Pharmacy 42.6 ml/min; Est GFR (African American) 59.3 ml/min; Est GFR (Non-African American) 51.2 ml/min; Potassium 4.1 mmol/L (3.5-5.1)
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
[2021-07-16] MEDS: ASPIRIN 81 MG ECTAB PO SCH (09:11)
[2021-07-16] MEDS: allopurinoL 100 MG TAB PO SCH (09:11)
[2021-07-16] MEDS: ATORVASTATIN 40 MG TAB PO SCH (09:12)
[2021-07-16] MEDS: HEPARIN SOD 5,000 UNIT/0.5 ML VIAL SQ SCH (09:12)
[2021-07-16] MEDS: CLOPIDOGREL BISULFATE 75 MG TAB PO SCH (09:12)
[2021-07-16] MEDS: METOPROLOL SUCC 50MG EXT REL TAB PO SCH (09:12)
[2021-07-16] MEDS ORDERED: VALSARTAN/SACUBITRIL 26/24MG TAB PO SCH (09:15)
[2021-07-16] MEDS: INSULIN ASPART PER UNIT SC SCH ×2 (09:20→12:56)
== END 2021-07-16 16:39 | DRG 682 ==
LOC: 2N 00:11 → ED 00:11 → SUATTDRO 04:17 → 2N 07:17 → SUATTDRO 18:09 → 2N 07-14 05:44 → 3E 07-15 13:25